=== PATIENT | male | born 1950 | race Caucasian/White ===

== ENCOUNTER 2016-07-25 17:34 | Emergency (ER) | payer MEDICARE, OTHER ==
[2016-07-25] MEDS ORDERED: Morphine INJ* 4 MG/ML 1 ML SYRINGE IV ONE (18:16)
[2016-07-25] MEDS ORDERED: Metoclopramide IV* 5 MG/ML 2 ML VIAL IV SLOW PU ONE (18:17)
[2016-07-25] MEDS: NS 0.9% 1000 ML* 2,000 ML IV ONE ×2 (18:26→20:51)
[2016-07-25 18:42] LABS: Hematocrit 40 % (42-52); Hemoglobin 13.1 g/dl (14.0-18.0); Mean Corpuscular HGB Conc 33 g/dl (31-36); Mean Corpuscular Hemoglobin 28 pg (27-31); Mean Corpuscular Volume 86 fL (80-94); Mean Platelet Volume 8 um3 (7.4-10.4); Red Blood Count 4.62 10^6/ul (4.0-5.4); Red Cell Distribution Width 16 % (10.5-15); White Blood Count 4.8 10^3/ul (3.5-10.8)
[2016-07-25 19:08] LABS: Albumin 4.3 g/dL (3.2-5.2); BUN/Creatinine Ratio 27.2 (8-20); C Reactive Protein 3.03 mg/L (< 5.00); Calcium 9.1 mg/dL (8.6-10.3); EGFR African American 122.2 (>60); EGFR Non-African American 95.1 (>60); Globulin 2.9 g/dL (2-4); Magnesium 1.7 mg/dL (1.9-2.7); Potassium 3.8 mmol/L (3.5-5.0); Total Bilirubin 0.5 mg/dL (0.2-1.0); Total Protein 7.2 g/dL (6.4-8.9)
[2016-07-25] MEDS ORDERED: Iodixanol* (CONTRAST) 320 MG/ML 100 ML SDV IV ONE (19:13)
--- NOTE | 2016-07-25 20:42 | RAD ---
INDICATION: Left-sided abdominal pain, vomiting and diarrhea. COMPARISON: Comparison is made with a prior CT of the abdomen and pelvis from October 13, 2015. TECHNIQUE: A CT scan of the abdomen and pelvis was performed with intravenous and oral contrast following intravenous injection of 114 ml of Visipaque 320 nonionic contrast. Contiguous axial sections were obtained from the lung bases through the symphysis pubis. Images were reconstructed in the coronal and sagittal planes. FINDINGS: There is a small infiltrate in the left lower lobe. No pleural effusion is present. The liver and spleen are normal in size without significant focal abnormality. The patient is status post cholecystectomy. The pancreas appears to be within normal limits. There is a 1 cm right adrenal nodule which is unchanged from studies dating back to June 04, 2014 and most consistent with a benign nodule. The kidneys are normal in size. No significant focal renal abnormality or hydronephrosis is seen. The aorta is normal in caliber with moderate calcific plaque present. No significant enlarged retroperitoneal lymph nodes are seen. The stomach, small and large bowel appear nondistended. There is mild thickening of the wall of the distal esophagus. The appendix is within normal limits. There is no evidence for diverticulitis or colitis. No free intraperitoneal air or fluid is seen. The patient is status post laminectomy at the T9 and T10 levels. IMPRESSION: 1. SMALL LEFT LOWER LOBE INFILTRATE. 2. NO EVIDENCE FOR ACUTE FINDING IN THE ABDOMEN OR CAUSE FOR THE PATIENT'S ABDOMINAL PAIN IS SEEN. 3. MILD THICKENING OF THE WALL OF THE DISTAL ESOPHAGUS SUGGESTIVE OF REFLUX DISEASE AND INFLAMMATION ALTHOUGH NONSPECIFIC. 4. STATUS POST CHOLECYSTECTOMY.
[2016-07-25] MEDS ORDERED: Magnesium Sulfate 2 GM IV* 2 GM/50 ML BAG IVPB ONE (21:05)
--- NOTE | 2016-07-25 21:27 | RAD ---
INDICATION: Cough. COMPARISON: Comparison is made with a prior chest x-ray study from May 22, 2013. TECHNIQUE: A portable view of the chest was obtained. FINDINGS: Cardiac and mediastinal contours appear to be within normal limits. The lungs are clear. No pleural effusion is seen. The infiltrate seen on the prior CT study is not visualized on this chest x-ray exam. IMPRESSION: THE SMALL INFILTRATE SEEN ON THE PRIOR CT STUDY IS NOT VISUALIZED ON THE CHEST X-RAY EXAM.
[2016-07-25 21:57] VITALS: BP 152/70
[2016-07-25] MEDS ORDERED: Azithromycin TAB* 250 MG PO ONE (22:15)
[2016-07-25] MEDS ORDERED: Metoclopramide TAB* 10 MG PO ONE (22:15)
--- NOTE | 2016-07-25 22:19 | ED ---
Orlin Abebe Billy, scribed for Yakov Cabral MD on 07/25/16 at 1812 . Complex/Multi-Sys Presentation - HPI Summary HPI Summary: Patient is a 65 year-old male coming to [facility] from PCP for evaluation of 5 days of N/V/D. Patient saw his PCP yesterday and was prescribed Zofran, to which he had an adverse reaction. He says that after taking the Zofran, he felt like he "couldn't sleep," like he "was running a marathon all night long." Patient also reports fatigue and general malaise. He has a history of T2DM and feels hypoglycemic at this time. Patient denies any urinary symptoms. He is concerned about possible dehydration as well. Positive LLQ pain which has been chronic for weeks. Patient is on chronic pain management (oral morphine and fentanyl patches). - History Of Current Complaint Chief Complaint: EDGeneral Time Seen by Provider: 07/25/16 18:02 Hx Obtained From: Patient Onset/Duration: Gradual Onset, Lasting Days, Still Present Timing: Constant Severity Currently: Moderate Severity Initially: Moderate Location: Pain At: - LLQ Aggravating Factor(s): none Alleviating Factor(s): none Associated Signs And Symptoms: Positive: Nausea, Vomiting, Diarrhea, Other - fatigue, general malaise. Negative: Dysuria, Fever - Allergies/Home Medications Allergies/Adverse Reactions: Allergies Allergy/AdvReac Type Severity Reaction Status Date / Time Procaine [From Novocain] Allergy Intermediate Rash And Verified 06/18/16 10:31 Itching Cyclobenzaprine Allergy Swelling Verified 06/18/16 10:31 Of Face,Lips,& Throat Ciprofloxacin [From Cipro] AdvReac Intermediate Rash And Verified 06/18/16 10:31 Itching PMH/Surg Hx/FS Hx/Imm Hx Endocrine/Hematology History: Reports: Hx Diabetes Denies: Hx Systemic Lupus Erythematosus Cardiovascular History: Reports: Hx Hypercholesterolemia, Hx Hypotension, Hx Hypertension Denies: Hx Congestive Heart Failure, Hx Pacemaker/ICD, Other Cardiovascular Problems/Disorders Respiratory History: Reports: Hx Asthma, Hx Chronic Obstructive Pulmonary Disease (COPD), Hx Sleep Apnea, Other Respiratory Problems/Disorders - COPD, SOB GI History: Reports: Hx Gastroesophageal Reflux Disease Denies: Other GI Disorders History: Reports: Other Problems/Disorders - Asencio catheter in place Denies: Hx Dialysis, Hx Renal Disease Musculoskeletal History: Reports: Hx Arthritis, Hx Back Problems, Hx Orthopedic Injury - Torn Right Rotator Cuff June 2014 Denies: Hx Rheumatoid Arthritis Sensory History: Reports: Hx Cataracts - ASHLY, Hx Contacts or Glasses - GLASSES Denies: Hx Hearing Aid Opthamlomology History: Reports: Hx Cataracts - ASHLY, Hx Contacts or Glasses - GLASSES Neurological History: Denies: Other Neuro Impairments/Disorders Psychiatric History: Reports: Hx Anxiety Denies: Hx Panic Disorder - Cancer History Cancer Type, Location and Year: bladder Hx Chemotherapy: No - Surgical History Surgery Procedure, Year, and Place: Cataract Surgery at [facility] [place], CHOLECYSTECTOMY 12/17/15. EARLY CSP FUSION. CSP LAMINECTOMYS. THORACIC OUTLET SURGERY [facility]. TENS UNIT X2. MORPHINE PUMPS IMPLANTED AND REMOVED. Left Knee replacement 01/2016. Shoulder surgery 06/2015. Total tooth extraction 2014 and dentures Hx Anesthesia Reactions: No - Immunization History Date of Tetanus Vaccine: 04/23/06 Infectious Disease History: No Infectious Disease History: Denies: Traveled Outside the [place] in Last 30 Days - Family History Known Family History: Positive: Diabetes - Social History Alcohol Use: None Substance Use Type: Reports: Cocaine, Marijuana Substance Use Comment - Amount & Last Used: Previous hx. Went to rehab [address] [place] [address] Smoking Status (MU): Former Smoker Type: Cigarettes Amount Used/How Often: PACK A DAY Have You Smoked in the Last Year: No Review of Systems Positive: Fatigue, Other - general malaise. Negative: Fever, Chills Positive: Vomiting, Diarrhea, Nausea Negative: dysuria, frequency, urgency All Other Systems Reviewed And Are Negative: Yes Physical Exam Triage Information Reviewed: Yes Vital Signs On Initial Exam: Initial Vitals Temp Pulse Resp BP Pulse Ox 95.5 F 59 20 125/88 100 07/25/16 17:36 07/25/16 17:36 07/25/16 17:36 07/25/16 17:36 07/25/16 17:36 Vital Signs Reviewed: Yes Appearance: Positive: No Pain Distress, Ill-Appearing - mild Skin: Positive: Warm, Dry, Pale Eyes: Positive: EOMI, LAURA ENT: Positive: Other - oral mucosa dry Neck: Positive: Supple, Nontender Cardiovascular: Positive: Bradycardia Abdomen Description: Positive: Soft, Other: - Left-sided abdominal tenderness Bowel Sounds: Positive: Hypoactive Musculoskeletal: Positive: Normal, Strength/ROM Intact Neurological: Positive: Normal, Sensory/Motor Intact, Alert, Oriented to Person Place, Time Psychiatric: Positive: Affect/Mood Appropriate - Marylin Coma Scale Coma Scale Total: 15 Diagnostics - Vital Signs Vital Signs Temp Pulse Resp BP Pulse Ox 07/25/16 17:49 52 10 99 07/25/16 17:36 95.5 F 59 20 125/88 100 - Laboratory Lab Results: Lab Results 07/25/16 07/25/16 07/25/16 Range/Units 18:30 18:30 18:30 WBC 4.8 (3.5-10.8) 10^3/ul RBC 4.62 (4.0-5.4) 10^6/ul Hgb 13.1 L (14.0-18.0) g/dl Hct 40 L (42-52) % MCV 86 (80-94) fL MCH 28 (27-31) pg MCHC 33 (31-36) g/dl RDW 16 H (10.5-15) % Plt Count 256 (150-450) 10^3/ul MPV 8 (7.4-10.4) um3 Neut % (Auto) 54.7 (38-83) % Lymph % (Auto) 26.7 (25-47) % Hoke % (Auto) 10.1 H (1-9) % Eos % (Auto) 3.4 (0-6) % Baso % (Auto) 5.1 H (0-2) % Absolute Neuts (auto) 2.6 (1.5-7.7) 10^3/ul Absolute Lymphs (auto) 1.3 (1.0-4.8) 10^3/ul Absolute Monos (auto) 0.5 (0-0.8) 10^3/ul Absolute Eos (auto) 0.2 (0-0.6) 10^3/ul Absolute Basos (auto) 0.2 (0-0.2) 10^3/ul Absolute Nucleated RBC 0 10^3/ul Nucleated RBC % 0 INR (Anticoag Therapy) 1.04 (0.89-1.11) Sodium 133 (133-145) mmol/L Potassium 3.8 (3.5-5.0) mmol/L Chloride 99 L (101-111) mmol/L Carbon Dioxide 26 (22-32) mmol/L Anion Gap 8 (2-11) mmol/L BUN 22 (6-24) mg/dL Creatinine 0.81 (0.67-1.17) mg/dL Est GFR ( Amer) 122.2 (>60) Est GFR (Non-Af Amer) 95.1 (>60) BUN/Creatinine Ratio 27.2 H (8-20) Glucose 113 H (70-100) mg/dL Lactic Acid (0.5-2.0) mmol/L Calcium 9.1 (8.6-10.3) mg/dL Magnesium 1.7 L (1.9-2.7) mg/dL Total Bilirubin 0.50 (0.2-1.0) mg/dL AST 20 (13-39) U/L ALT 13 (7-52) U/L Alkaline Phosphatase 86 (34-104) U/L C-Reactive Protein 3.03 (< 5.00) mg/L Total Protein 7.2 (6.4-8.9) g/dL Albumin 4.3 (3.2-5.2) g/dL Globulin 2.9 (2-4) g/dL Albumin/Globulin Ratio 1.5 (1-3) Lipase 29 (11.0-82.0) U/L 07/25/16 Range/Units 18:30 WBC (3.5-10.8) 10^3/ul RBC (4.0-5.4) 10^6/ul Hgb (14.0-18.0) g/dl Hct (42-52) % MCV (80-94) fL MCH (27-31) pg MCHC (31-36) g/dl RDW (10.5-15) % Plt Count (150-450) 10^3/ul MPV (7.4-10.4) um3 Neut % (Auto) (38-83) % Lymph % (Auto) (25-47) % Hoke % (Auto) (1-9) % Eos % (Auto) (0-6) % Baso % (Auto) (0-2) % Absolute Neuts (auto) (1.5-7.7) 10^3/ul Absolute Lymphs (auto) (1.0-4.8) 10^3/ul Absolute Monos (auto) (0-0.8) 10^3/ul Absolute Eos (auto) (0-0.6) 10^3/ul Absolute Basos (auto) (0-0.2) 10^3/ul Absolute Nucleated RBC 10^3/ul Nucleated RBC % INR (Anticoag Therapy) (0.89-1.11) Sodium (133-145) mmol/L Potassium (3.5-5.0) mmol/L Chloride (101-111) mmol/L Carbon Dioxide (22-32) mmol/L Anion Gap (2-11) mmol/L BUN (6-24) mg/dL Creatinine (0.67-1.17) mg/dL Est GFR ( Amer) (>60) Est GFR (Non-Af Amer) (>60) BUN/Creatinine Ratio (8-20) Glucose (70-100) mg/dL Lactic Acid 0.9 (0.5-2.0) mmol/L Calcium (8.6-10.3) mg/dL Magnesium (1.9-2.7) mg/dL Total Bilirubin (0.2-1.0) mg/dL AST (13-39) U/L ALT (7-52) U/L Alkaline Phosphatase (34-104) U/L C-Reactive Protein (< 5.00) mg/L Total Protein (6.4-8.9) g/dL Albumin (3.2-5.2) g/dL Globulin (2-4) g/dL Albumin/Globulin Ratio (1-3) Lipase (11.0-82.0) U/L Result Diagrams: 07/25/16 18:30 07/25/16 18:30 Lab Statement: Any lab studies that have been ordered have been reviewed, and results considered in the medical decision making process. - Radiology CXR Radiology Interpretation Completed By: Radiologist - THE SMALL INFILTRATE SEEN ON THE PRIOR CT STUDY IS NOT VISUALIZED ON THE CHEST X-RAY EXAM. - CT abd/pel w CT Interpretation Completed By: Radiologist - 1. SMALL LEFT LOWER LOBE INFILTRATE. 2. NO EVIDENCE FOR ACUTE FINDING IN THE ABDOMEN OR CAUSE FOR THE PATIENT'S ABDOMINAL PAIN IS SEEN. 3. MILD THICKENING OF THE WALL OF THE DISTAL ESOPHAGUS SUGGESTIVE OF REFLUX DISEASE AND INFLAMMATION ALTHOUGH NONSPECIFIC. 4. STATUS POST CHOLECYSTECTOMY. Re-Evaluation - Re-Evaluation First Eval Re-Evaluation Time: 20:59 Change: Improved Comment: Labs and imaging discussed. He is feeling better. When asked about the left lung infiltrate visualised on CT, patient admits that he has had a cough lately. CXR has been ordered. Second Eval Re-Evaluation Time: 22:14 Comment: CXR reviewed. Complex Multi-Symp Course/Dx Course Of Treatment: NO CRITICAL CARE TIME Assessment/Plan: IMPROVED IN ED. WISHES TO GO HOME. DISCHARGE HOME STABLE. - Diagnoses Provider Diagnoses: Vomiting and diarrhea, Dehydration, Pneumonia Discharge - Discharge Plan Condition: Stable Disposition: HOME Prescriptions: Azithromycin TAB* [Zithromax TAB (Z-BIB) 250 mg #6 tabs] 250 mg PO DAILY #4 tab Metoclopramide TAB* [Reglan TAB*] 10 mg PO Q6H PRN #10 tab PRN Reason: Nausea Patient Education Materials: Dehydration (ED), Acute Nausea and Vomiting (ED), Pneumonia (ED) Referrals: Deepthi Jacobs MD [Primary Care Provider] - Additional Instructions: FOLLOW UP WITH YOUR DOCTOR. RETURN TO THE EMERGENCY DEPARTMENT FOR ANY WORSENING OF YOUR CONDITION OR QUESTIONS OR CONCERNS. The documentation as recorded by the Orlin juan Billy accurately reflects the service I personally performed and the decisions made by me, Yakov Cabral MD.
== END 2016-07-25 22:35 | disposition home or self-care (01) ==
LOC: ED 17:34
DX: E86.0 Dehydration (principal); J18.9 Pneumonia, unspecified organism; R10.32 Left lower quadrant pain; R11.2 Nausea with vomiting, unspecified; R19.7 Diarrhea, unspecified; R53.83 Other fatigue
CPT/HCPCS: 36415; 71010; 74177; 80053; 83605; 83690; 83735; 85025; 85610; 86140; 96374; 96375; 99284; A9270-GY; J2270; Q9967

== ENCOUNTER 2017-01-28 17:34 | Emergency (ER) | payer MEDICARE, OTHER ==
[2017-01-28 17:46] VITALS: BP 146/63
--- NOTE | 2017-01-28 18:01 | UC ---
Upper Extremity HPI - HPI Summary HPI Summary: left wrist pain after stumbling and falling in to a cabinet--- - History of Current Complaint Chief Complaint: UCUpperExtremity Stated Complaint: WRIST INJURY Time Seen by Provider: 01/28/17 17:52 Hx Obtained From: Patient ?: No Onset/Duration: Sudden Onset, Other - happened 2 days Severity Initially: Moderate Severity Currently: Moderate Pain Intensity: 5 Pain Scale Used: 0-10 Numeric Location Of Pain: Is Discrete @ Character: Aching, Burning Aggravating Factor(s): Movement Alleviating Factor(s): Nothing - Allergies/Home Medications Allergies/Adverse Reactions: Allergies Allergy/AdvReac Type Severity Reaction Status Date / Time Ciprofloxacin [From Cipro] Allergy Intermediate Rash And Verified 01/28/17 17:47 Itching Procaine [From Novocain] Allergy Intermediate Rash And Verified 01/28/17 17:47 Itching Cyclobenzaprine Allergy Swelling Verified 01/28/17 17:47 Of Face,Lips,& Throat Home Medications: Home Medications Acetaminophen [Acetaminophen Extra Stren] 1,500 mg PO PRN 01/28/17 [History] PMH/Surg Hx/FS Hx/Imm Hx Previously Healthy: No Endocrine History: Diabetes, Dyslipidemia Cardiovascular History: Hypertension Respiratory History: Asthma GI/ History: Gastroesophageal Reflux Psychological History: Depression - Surgical History Surgical History: Yes Surgery Procedure, Year, and Place: [place]ar[place] [facility] [place]. EARLY S CSP FUSION. CSP LAMINECTOMYS. THORACIC OUTLET SURGERY [facility]. TENS UNIT X2. MORPHINE PUMPS IMPLANTED AND REMOVED. Left Knee replacement 01/2016. Shoulder surgery 06/2015. Total tooth extraction 2014 and dentures - Family History Known Family History: Positive: Diabetes - Social History Occupation: Retired - Volunteers at [employer] Alcohol Use: None Substance Use Type: None, Prescribed Substance Use Comment - Amount & Last Used: Previous hx. Went to rehab [facility], [place], [place] Smoking Status (MU): Former Smoker Type: Cigarettes Amount Used/How Often: PACK A DAY Have You Smoked in the Last Year: No When Did the Patient Quit Smoking/Using Tobacco: 2009 Review of Systems Constitutional: Negative Skin: Negative Eyes: Negative ENT: Negative Respiratory: Negative Cardiovascular: Negative Gastrointestinal: Negative Genitourinary: Negative Motor: Negative Neurovascular: Negative Musculoskeletal: Arthralgia - left wrist Neurological: Negative Psychological: Negative Is Patient Immunocompromised?: No All Other Systems Reviewed And Are Negative: Yes Physical Exam Triage Information Reviewed: Yes Appearance: Well-Appearing, No Pain Distress, Well-Nourished Vital Signs: Initial Vital Signs Temp 98.1 F 01/28/17 17:38 Pulse 76 01/28/17 17:38 Resp 16 01/28/17 17:38 BP 146/63 01/28/17 17:38 Pulse Ox 100 01/28/17 17:38 Vital Signs Reviewed: Yes Eye Exam: Normal Eyes: Positive: Conjunctiva Clear ENT Exam: Normal ENT: Positive: Normal ENT inspection, Hearing grossly normal. Negative: Nasal congestion, Nasal drainage, Trismus, Muffled/hoarse voice Neck exam: Normal Neck: Positive: Supple, Nontender Respiratory Exam: Normal Respiratory: Positive: Chest non-tender, No respiratory distress, No accessory muscle use Cardiovascular Exam: Normal Cardiovascular: Positive: RRR, Pulses Normal, Brisk Capillary Refill Musculoskeletal Exam: Normal Musculoskeletal: Positive: Strength Intact, ROM Intact Neurological Exam: Normal Neurological: Positive: Alert, Muscle Tone Normal Skin Exam: Normal Skin: Positive: rashes Diagnostics - Radiology No standard instances Xray Interpretation: No Acute Changes Radiology Interpretation Completed By: ED Physician, Radiologist Upper Extremity Course/Dx - Course Course Of Treatment: erika, splint sling ibuprofen, follow with ortho prn,rice - Differential Dx/Diagnosis Differential Diagnosis/HQI/PQRI: Contusion, Fracture (Open), Strain, Sprain Provider Diagnoses: left wrist contusion, sprain Discharge - Discharge Plan Condition: Stable Disposition: HOME Patient Education Materials: Contusion in Adults (ED), RICE Therapy (ED), Wrist Sprain (ED) Referrals: Michael Evans MD [Medical Doctor] - 4 Days No Primary Care Phys,NOPCP [Primary Care Provider] -
--- NOTE | 2017-01-28 19:08 | RAD ---
INDICATION: Left wrist pain 2 days after a fall COMPARISON: None. TECHNIQUE: 4 views left wrist. REPORT: The visualized bones are properly aligned and well corticated. Degenerative changes include sclerotic bony remodeling with marginal osteophyte formation at the left thumb metacarpal trapezium joint. There is a mild degree of palmar and radial subluxation of the metacarpal relative to the trapezium.There is no fracture, dislocation or other focal osseous abnormality. IMPRESSION: Degenerative changes as described above without radiographically apparent fracture or dislocation. If the patient's symptoms persist, follow-up imaging is recommended.
== END 2017-01-28 19:18 | disposition home or self-care (01) ==
LOC: UCEAST 17:34
DX: S63.502A Unspecified sprain of left wrist, initial encounter (principal); E11.9 Type 2 diabetes mellitus without complications; E78.5 Hyperlipidemia, unspecified; I10 Essential (primary) hypertension; K21.9 Gastro-esophageal reflux disease without esophagitis; J45.909 Unspecified asthma, uncomplicated; Z87.891 Personal history of nicotine dependence; W19.XXXA Unspecified fall, initial encounter; Y92.9 Unspecified place or not applicable
CPT/HCPCS: 99211; G0463

== ENCOUNTER 2017-10-19 13:32 | Emergency (ER) | payer MEDICARE, OTHER ==
[2017-10-19 14:32] VITALS: BP 167/84
== END 2017-10-19 16:21 | disposition left against medical advice (07) ==
LOC: ED 13:32
DX: R51 Headache (principal); R19.7 Diarrhea, unspecified; Z53.21 Procedure and treatment not carried out due to patient leaving prior to being seen by health care provider

== ENCOUNTER 2017-10-20 10:51 | Observation (INO) | payer MEDICARE ==
[2017-10-20 12:07] LABS: ABS Basophils 0.1 10^3/ul (0-0.2); ABS Eosinophils 0.1 10^3/ul (0-0.6); ABS Lymphocytes 0.6 10^3/ul (1.0-4.8); ABS Monocytes 0.7 10^3/ul (0-0.8); ABS Neutrophils 8.8 10^3/ul (1.5-7.7); ABS Nucleated RBC 0 10^3/ul; Eosinophil % 0.7 % (0-6); Hematocrit 41 % (42-52); Hemoglobin 14.2 g/dl (14.0-18.0); Lymphocyte % 5.9 % (25-47); Mean Corpuscular HGB Conc 35 g/dl (31-36); Mean Corpuscular Hemoglobin 30 pg (27-31); Mean Corpuscular Volume 86 fL (80-94); Mean Platelet Volume 7.3 um3 (7.4-10.4); Nucleated Red Blood Cells % 0; Platelet Count 193 10^3/ul (150-450); Red Blood Count 4.71 10^6/ul (4.00-5.40); Red Cell Distribution Width 14 % (10.5-15); White Blood Count 10.2 10^3/ul (3.5-10.8)
[2017-10-20 12:28] LABS: EGFR Non-African American 95.8 (>60)
[2017-10-20] MEDS ORDERED: Ondansetron ODT TAB* 4 MG SL ONE (12:30)
[2017-10-20] MEDS ORDERED: Iodixanol* (CONTRAST) 320 MG/ML 100 ML SDV IV ONE (12:43)
[2017-10-20] MEDS: NS 0.9% 1000 ML* 2,000 ML IV ONE (13:04)
--- NOTE | 2017-10-20 14:28 | RAD ---
INDICATION: Lower abdominal pain. Diarrhea. Vomiting. COMPARISON: CT October 22, 2016 TECHNIQUE: Axial source images were obtained from the hemidiaphragms to the symphysis pubis following administration of oral and intravenous contrast. 112 mL Visipaque 320 was utilized. Coronal and sagittal reconstructed images were acquired. Lung bases: There is left basilar infiltrative change. The remaining lung mc are clear. Liver: The liver is enlarged with findings of hepatic steatosis. There are no masses. There is no ductal dilatation. Gallbladder: Cholecystectomy. Spleen: There is minor splenomegaly. There is no discrete mass. Pancreas: There is no focal pancreatic mass or ductal dilatation. Adrenal glands: There is a enhancing, 1.2 cm nodule in the right adrenal gland stable and described on multiple prior examinations. This is likely an adenoma. There is suspected mild adrenal hyperplasia as well, unchanged. Kidneys: The kidneys are normal in size and position. There are prompt nephrograms and there is prompt excretion bilaterally. There are no renal parenchymal masses. There is no evidence of nephrolithiasis. Adenopathy: There is no evidence of adenopathy by size criteria. Fluid collections: There are no free or localized fluid collections. Vessels:There are atherosclerotic changes involving the aorta and iliac vessels. There is no focal aneurysm. The IVC appears normal. GI tract: There is mild gaseous distention but there is no obstruction. There are scant diverticula. There is no CT evidence of acute diverticulitis. There are nondilated fluid-filled loops of small bowel. There is air and stool within a normal caliber colon. Pelvic organs: The prostate and seminal vesicles appear normal Bladder: The bladder appears mildly trabeculated. Abdominal and pelvic soft tissues: The extraperitoneal abdominal and pelvic soft tissues appear normal.. Osseous structures: There are no acute osseous findings. There is degenerative change at L5-S1 Other: None IMPRESSION: 1. Left basilar infiltrate consistent with pneumonitis. Suggest follow-up plain radiographs. 2. Mild hepatosplenomegaly. 3. Stable right adrenal lesion, likely an adenoma. 4. Mild gaseous distention but no findings of obstruction or enteric inflammatory change. 5. Mild trabeculation of bladder. 6. Cholecystectomy
--- NOTE | 2017-10-20 16:04 | RAD ---
INDICATION: Vomiting. COPD. Generalized illness. COMPARISON: October 20, 2017 CT abdomen TECHNIQUE: Dual energy PA and routine lateral views of the chest were obtained. REPORT: Airspace consolidation at the LEFT lung base based on correlation with CT abdomen of the same date. Diffuse mild prominence of the interstitial markings. Negative for pleural effusions. Negative for pneumothorax. The heart, pulmonary vasculature, and mediastinal contours are unremarkable. Negative for free air beneath the diaphragm. LEFT supraclavicular surgical clips noted. IMPRESSION: LEFT basilar pneumonia.
[2017-10-20] MEDS ORDERED: Dextrose 50% Syringe 50 ML* 25 GM/50 ML SYRINGE IV PUSH PRN (17:38)
[2017-10-20] MEDS ORDERED: Morphine ORAL.SOLN 10 mg* 2 MG/ML UDC 5 ml PO PRN (17:39)
[2017-10-20] MEDS ORDERED: Nitroglycerin TAB 0.4 MG* 0.4 MG TAB SL PRN (17:39)
[2017-10-20 17:40] LABS: Urine Appearance Clear; Urine Blood Negative (Negative); Urine Color Yellow; Urine Ketones Negative (Negative); Urine Protein Negative (Negative); Urine Specific Gravity 1.046 (1.010-1.030); Urine Urobilinogen Negative (Negative)
--- NOTE | 2017-10-20 17:49 | ADMNOTE ---
Subjective Date of Service: 10/20/17 Interval History: ADMISSION HISTORY AND PHYSICAL EXAM: Allergies Allergy/AdvReac Type Severity Reaction Status Date / Time ciprofloxacin [From Cipro] Allergy rash, Verified 10/20/17 12:08 itching cyclobenzaprine Allergy Swelling Verified 10/20/17 12:08 Of Face,Lips,& Throat procaine [From Novocain] Allergy rash, Verified 10/20/17 12:08 itching Home Medications Medication Instructions Recorded Confirmed Type Aspirin TAB* [Aspirin 325 MG TAB*] 325 mg PO DAILY 10/20/17 10/20/17 History Atorvastatin* [Lipitor*] 10 mg PO DAILY 10/20/17 10/20/17 History Biotin 1,000 mcg PO QPM 10/20/17 10/20/17 History Cholecalciferol TAB* [Vitamin D 1,000 unit PO QPM 10/20/17 10/20/17 History TAB*] Docusate CAP* [Colace Cap*] 100 mg PO BID 10/20/17 10/20/17 History Ferrous Sulfate TAB* 325 mg PO DAILY 10/20/17 10/20/17 History Hydrochlorothiazide TAB* 25 mg PO DAILY 10/20/17 10/20/17 History [Hydrodiuril TAB*] Insulin ASPART (NF) [Novolog (NF)] 0 units SUBCUT DAILY 10/20/17 10/20/17 History Insulin GLARGINE(*) [Lantus(*)] 38 units SUBCUT QPM 10/20/17 10/20/17 History Lisinopril TAB* [Prinivil TAB*] 5 mg PO DAILY 10/20/17 10/20/17 History Montelukast Sodium TAB* [Singulair 10 mg PO DAILY 10/20/17 10/20/17 History TAB*] Morphine TAB (NF) 1 - 2 tab PO Q4H PRN 10/20/17 10/20/17 History Nitroglycerin TAB 0.4 MG* 0.4 mg SL Q5M PRN 10/20/17 10/20/17 History [place]-3 Fatty Acids (Nf) [Fish Oil 1,000 mg PO BID 10/20/17 10/20/17 History (NF)] Omeprazole CAP* [Prilosec CAP* 20 20 mg PO BID 10/20/17 10/20/17 History MG] Potassium Chlor TAB* [Klor Con ER 10 meq PO BID 10/20/17 10/20/17 History TAB*] Prazosin CAP* [Minipress CAP*] 10 mg PO QPM 10/20/17 10/20/17 History Sertraline* [Zoloft*] 200 mg PO BEDTIME 10/20/17 10/20/17 History Tamsulosin CAP* [Flomax CAP*] 0.4 mg PO DAILY 10/20/17 10/20/17 History Temazepam CAP* [Restoril CAP*] 30 mg PO BEDTIME 10/20/17 10/20/17 History Theophylline TAB* [Dheeraj Dur*] 400 mg PO BID 10/20/17 10/20/17 History fentaNYL PATCH 12 MCG/HR * 12 mcg TRANSDERM Q72H 10/20/17 10/20/17 History [Duragesic Patch 12 Mcg/Hr *] fentaNYL PATCH 25 MCG/HR* 25 mcg TRANSDERM Q72H 10/20/17 10/20/17 History [Duragesic PATCH 25 Mcg/Hr*] metFORMIN* [Glucophage 1000 MG TAB 1,000 mg PO BID 10/20/17 10/20/17 History *] traZODone TAB* [Desyrel TAB*] 50 mg PO BEDTIME 10/20/17 10/20/17 History HPI: The patient states he has been ill with vomiting, abdominal pain, diarrhea, cough for 2-3 weeks. It was worse today. He was also depressed but did not seem to want to talk to me about that. Family History: Findings - Patient is adopted and doesn't know his family hx Social History: Findings - Quit smoking 10 yrs ago. No alcohol abuse. Daughter Kanwal is his SDM. Lives alone, very close to his daughter. Past Medical History: Findings - TURP 2010. BL cataract sx. Chronic neck pain following injury. Review of Systems - Measurements Intake and Output: Intake and Output Last 24 Hours 10/18/17 10/19/17 10/20/17 10/21/17 06:59 06:59 06:59 06:59 Intake Total 1999 Balance 1999 Weight 199 lb Intake: IV Fluids 1999 - Review of Systems Constitutional Symptoms: Negative: Weight Gain, Weight Loss, Weakness, Fatigue, Fever, Night Sweats, Unexplained Falls, Other Dermatology: Positive: Normal HEENT: Positive: Normal Eyes: Positive: Normal Thyroid: Positive: Normal Pulmonary: Positive: Cough Cardiology: Positive: Normal Gastroenterology: Positive: Abdominal Pain, Vomiting, Diarrhea Genital - Urinary: Positive: Normal Musculoskeletal: Positive: Other - chronic neck pain Endocrinology: Positive: Normal Hematologic/Lymphatic: Negative: Anemia, Easy Brusing, Hx Leukemia, Hx Lymphoma, Use of Anticoagulant, Use of Antiplatelet Drugs, Other Neurology: Positive: Normal Psychiatry: Positive: Depression Allergic/Immunologic: Negative: Hx Anaphylaxis, Hx Angioedema, Hx Environmental, Hx Seasonal, Athsma, Hx HIV, Immunocompromise, Swollen Glands LymphNodes, Other Objective Active Medications: Enoxaparin Sodium (Lovenox(*)) 40 mg SUBCUT Q24H IRMA Vital Signs - 8 hr 10/20/17 10/20/17 10/20/17 11:24 12:02 12:03 Temperature 98.7 F Pulse Rate 86 67 63 Respiratory 17 Rate Blood Pressure 150/68 139/68 (mmHg) O2 Sat by Pulse 97 97 96 Oximetry 10/20/17 10/20/17 10/20/17 12:32 13:00 13:03 Temperature Pulse Rate 60 65 58 Respiratory Rate Blood Pressure 117/68 125/71 (mmHg) O2 Sat by Pulse 97 97 98 Oximetry 10/20/17 10/20/17 10/20/17 13:32 14:03 14:32 Temperature Pulse Rate 56 64 60 Respiratory Rate Blood Pressure 141/74 164/74 157/79 (mmHg) O2 Sat by Pulse 98 98 96 Oximetry 10/20/17 10/20/17 10/20/17 15:00 15:02 15:42 Temperature Pulse Rate 60 60 58 Respiratory Rate Blood Pressure 141/77 171/81 (mmHg) O2 Sat by Pulse 95 94 98 Oximetry 10/20/17 10/20/17 10/20/17 16:00 16:03 16:33 Temperature Pulse Rate 66 63 60 Respiratory Rate Blood Pressure 159/75 163/79 (mmHg) O2 Sat by Pulse 98 97 97 Oximetry 10/20/17 10/20/17 17:00 17:02 Temperature Pulse Rate 58 53 Respiratory Rate Blood Pressure 163/80 (mmHg) O2 Sat by Pulse 99 98 Oximetry Oxygen Devices in Use Now: None Appearance: Alert, supine on ED stretcher. In fair spirits. Looks a little uncomfortable. Eyes: No Scleral Icterus Neck: NL Appearance and Movements; NL JVP, No Thyroid Enlargement, Masses Respiratory: Symmetrical Chest Expansion and Respiratory Effort, Clear to Percussion, - - Rales L base Cardiovascular: NL Sounds; No Murmurs; No JVD, RRR, No Edema, - Abdominal: No Hepatosplenomegaly, - - Soft, tender to mod palpation, nl BS Extremities: No Edema, No Clubbing, Cyanosis, - Skin: No Rash or Ulcers, No Nodules or Sclerosis, - Neurological: Alert and Oriented x 3, NL Sensation Result Diagrams: 10/20/17 11:51 10/20/17 11:51 Assess/Plan/Problems-Billing Assessment: - Patient Problems (1) Pneumonia Current Visit: Yes Status: Acute Code(s): J18.9 - PNEUMONIA, UNSPECIFIED ORGANISM SNOMED Code(s): 996994455 Comment: Ceftriaxne and azithromycin ordered. (2) Chronic pain Current Visit: Yes Status: Acute Code(s): G89.29 - OTHER CHRONIC PAIN SNOMED Code(s): 10817805 Comment: Home doses of MS and fentanyl patch ordered. (3) Diabetes Current Visit: Yes Status: Acute Code(s): E11.9 - TYPE 2 DIABETES MELLITUS WITHOUT COMPLICATIONS SNOMED Code(s): 73414432 Comment: Hold metformin. Home dose Lantus. Lispro by SS. (4) HTN (hypertension) Current Visit: Yes Status: Acute Code(s): I10 - ESSENTIAL (PRIMARY) HYPERTENSION SNOMED Code(s): 20246214 Comment: Home dose lisinopril, prazosin, thiazide. (5) Depression Current Visit: Yes Status: Acute Code(s): F32.9 - MAJOR DEPRESSIVE DISORDER , SINGLE EPISODE, UNSPECIFIED SNOMED Code(s): 06474583
[2017-10-20] MEDS ORDERED: Azithromycin IV(*) 500 MG in NS 0.9% 250 ML* 250 ML IVPB SCH (18:00)
[2017-10-20] MEDS ORDERED: Cholecalciferol TAB* 1000 UNITS PO SCH (18:00)
[2017-10-20] MEDS ORDERED: fentaNYL PATCH 25 MCG/HR TRANSDERM SCH (18:00)
[2017-10-20] MEDS ORDERED: Prazosin CAP* 1 MG PO SCH (18:00)
[2017-10-20] MEDS ORDERED: Insulin GLARGINE(*) 1 UNITS UNIT SUBCUT SCH (18:00)
[2017-10-20] MEDS ORDERED: fentaNYL PATCH 12 MCG/HR TRANSDERM SCH (18:00)
[2017-10-20] MEDS ORDERED: Enoxaparin(*) 40 MG/0.4 ML SYR SUBCUT SCH (18:00)
[2017-10-20] MEDS ORDERED: cefTRIAXone(*) 1 GM in NS 0.9% 50 ML* 50 ML IVPB SCH (18:30)
[2017-10-20] MEDS: fentaNYL Patch Check Q Shift 1 NOTE SCH (19:56)
[2017-10-20] MEDS ORDERED: traZODone TAB* 50 MG TAB PO SCH (21:00)
[2017-10-20] MEDS ORDERED: Sertraline* 100 MG TAB PO SCH (21:00)
[2017-10-20] MEDS ORDERED: Temazepam CAP* 15 MG PO SCH (21:00)
[2017-10-20] MEDS: Insulin LISPRO* 1 UNITS UNIT SUBCUT SCH (21:14)
[2017-10-20] MEDS: Potassium Chlor TAB* 10 MEQ TAB.ER PO SCH (21:15)
[2017-10-20] MEDS: Omeprazole CAP* 20 MG PO SCH (21:15)
[2017-10-20] MEDS: Docusate CAP* 100 MG PO SCH (21:15)
[2017-10-20] MEDS: THEOPHYLLINE TAB.SA* 200 MG PO SCH (21:30)
[2017-10-20] MEDS ORDERED: hydrALAZINE IV* 20 MG/ML VIAL IV PRN (21:57)
[2017-10-20] MEDS: Acetaminophen TAB* 325 MG PO PRN (22:20)
[2017-10-21] MEDS: fentaNYL Patch Check Q Shift 1 NOTE SCH (06:52)
[2017-10-21] MEDS ORDERED: Atorvastatin* 10 MG TAB PO SCH (09:00)
[2017-10-21] MEDS ORDERED: Aspirin TAB* 325 MG PO SCH (09:00)
[2017-10-21] MEDS ORDERED: Ferrous Sulfate TAB* 325 MG PO SCH (09:00)
[2017-10-21] MEDS ORDERED: Lisinopril TAB* 5 MG PO SCH (09:00)
[2017-10-21] MEDS ORDERED: Hydrochlorothiazide TAB* 25 MG PO SCH (09:00)
[2017-10-21] MEDS ORDERED: Montelukast Sodium TAB* 10 MG PO SCH (09:00)
[2017-10-21] MEDS ORDERED: Tamsulosin CAP* 0.4 MG PO SCH (09:00)
[2017-10-21] MEDS: Acetaminophen TAB* 325 MG PO PRN (09:36)
[2017-10-21] MEDS: THEOPHYLLINE TAB.SA* 200 MG PO SCH (09:37)
[2017-10-21] MEDS: Potassium Chlor TAB* 10 MEQ TAB.ER PO SCH (09:37)
[2017-10-21] MEDS: Docusate CAP* 100 MG PO SCH (09:38)
[2017-10-21] MEDS: Omeprazole CAP* 20 MG PO SCH (09:38)
[2017-10-21] MEDS: Insulin LISPRO* 1 UNITS UNIT SUBCUT SCH ×2 (09:49→12:55)
--- NOTE | 2017-10-21 13:35 | PN ---
Subjective Date of Service: 10/21/17 Interval History: Still some cough with small amts of yellow sputum. Abd pain better, N&V resolved. No BM since admission. Family History: Findings - Patient is adopted and doesn't know his family hx Social History: Findings - Quit smoking 10 yrs ago. No alcohol abuse. Daughter Kanwal is his SDM. Lives alone, very close to his daughter. Past Medical History: Findings - TURP 2010. BL cataract sx. Chronic neck pain following injury. Objective Active Medications: Acetaminophen (Tylenol Tab*) 650 mg PO Q6H PRN PRN Reason: FEVER/PAIN Last Admin: 10/21/17 09:36 Dose: 650 mg Aspirin (Aspirin Tab*) 325 mg PO DAILY [facility] Last Admin: 10/21/17 09:38 Dose: 325 mg Atorvastatin Calcium (Lipitor*) 10 mg PO DAILY [facility] Last Admin: 10/21/17 09:38 Dose: 10 mg Azithromycin (Zithromax Tab*) 250 mg PO DAILY [facility] Cholecalciferol (Vitamin D Tab*) 1,000 units PO QPM [facility] Last Admin: 10/20/17 19:42 Dose: 1,000 units Dextrose (D50w Syringe 50 Ml*) 12.5 gm IV PUSH .FOR FS < 60 - SS PRN PRN Reason: FS < 60 Docusate Sodium (Colace Cap*) 100 mg PO BID [facility] Last Admin: 10/21/17 09:38 Dose: 100 mg Enoxaparin Sodium (Lovenox(*)) 40 mg SUBCUT Q24H [facility] Last Admin: 10/20/17 19:43 Dose: 40 mg Fentanyl (Duragesic Patch 12 Mcg/Hr *) 12 mcg TRANSDERM Q72H [facility] Last Admin: 10/20/17 19:49 Dose: 12 mcg Fentanyl (Duragesic Patch 25 Mcg/Hr*) 25 mcg TRANSDERM Q72H [facility] Last Admin: 10/20/17 19:50 Dose: 25 mcg Ferrous Sulfate (Ferrous Sulfate Tab*) 325 mg PO DAILY [facility] Last Admin: 10/21/17 09:37 Dose: 325 mg Guaifenesin (Robitussin*) 10 ml PO QID [facility] Hydrochlorothiazide (Hydrodiuril Tab*) 25 mg PO DAILY [facility] Last Admin: 10/21/17 09:37 Dose: 25 mg Ceftriaxone Sodium 1 gm/ (Sodium Chloride) 50 mls @ 200 mls/hr IVPB Q24H [facility] Insulin Glargine (Lantus(*)) 38 units SUBCUT QPM [facility] Last Admin: 10/20/17 20:03 Dose: 38 units Insulin Human Lispro (Humalog*) 0 units SUBCUT ACHS [facility]; Protocol Last Admin: 10/21/17 12:55 Dose: Not Given Lisinopril (Prinivil Tab*) 5 mg PO DAILY [facility] Last Admin: 10/21/17 09:45 Dose: 5 mg Montelukast Sodium (Singulair Tab*) 10 mg PO DAILY [facility] Last Admin: 10/21/17 09:38 Dose: 10 mg Morphine Sulfate (Morphine Oral.Soln 10 Mg*) 15 mg PO Q4H PRN PRN Reason: PAIN Nitroglycerin (Nitroglycerin Tab 0.4 Mg*) 0.4 mg SL Q5M PRN PRN Reason: PAIN - CHEST Omeprazole (Prilosec Cap*) 20 mg PO BID [facility] Last Admin: 10/21/17 09:38 Dose: 20 mg Pharmacy Profile Note (Fentanyl Patch Check Q Shift) 1 note N/A 0700,1900 [facility] Last Admin: 10/21/17 06:52 Dose: 1 note Potassium Chloride (Klor Con Er Tab*) 10 meq PO BID [facility] Last Admin: 10/21/17 09:37 Dose: 10 meq Prazosin HCl (Minipress Cap*) 4 mg PO QPM [facility] Last Admin: 10/20/17 21:30 Dose: 4 mg Sertraline HCl (Zoloft*) 200 mg PO BEDTIME [facility] Last Admin: 10/20/17 21:15 Dose: 200 mg Tamsulosin HCl (Flomax Cap*) 0.4 mg PO DAILY [facility] Last Admin: 10/21/17 09:37 Dose: 0.4 mg Temazepam (Restoril Cap*) 30 mg PO BEDTIME [facility] Last Admin: 10/20/17 21:15 Dose: 30 mg Theophylline (Dheeraj Dur*) 400 mg PO BID [facility] Last Admin: 10/21/17 09:37 Dose: 400 mg Trazodone HCl (Desyrel Tab*) 50 mg PO BEDTIME [facility] Last Admin: 10/20/17 21:15 Dose: 50 mg Vital Signs - 8 hr 10/21/17 07:31 Temperature 97.7 F Pulse Rate 55 Respiratory 14 Rate Blood Pressure 147/61 (mmHg) O2 Sat by Pulse 96 Oximetry Oxygen Devices in Use Now: None Appearance: Alert, sitting on the edge of his bed. In good spirits. Looks comfortable. Eyes: No Scleral Icterus Neck: NL Appearance and Movements; NL JVP, No Thyroid Enlargement, Masses Respiratory: Symmetrical Chest Expansion and Respiratory Effort, Clear to Auscultation, Clear to Percussion Cardiovascular: NL Sounds; No Murmurs; No JVD, RRR, No Edema, - Abdominal: NL Sounds; No Tenderness; No Distention, No Hepatosplenomegaly Extremities: No Edema, No Clubbing, Cyanosis, - Skin: No Rash or Ulcers Neurological: Alert and Oriented x 3, NL Sensation Result Diagrams: 10/20/17 11:51 10/20/17 11:51 Assess/Plan/Problems-Billing Assessment: - Patient Problems (1) Pneumonia Current Visit: Yes Status: Acute Code(s): J18.9 - PNEUMONIA, UNSPECIFIED ORGANISM SNOMED Code(s): 886181821 Comment: Continue ceftriaxne and azithromycin. (2) Chronic pain Current Visit: Yes Status: Acute Code(s): G89.29 - OTHER CHRONIC PAIN SNOMED Code(s): 58195120 Comment: Home doses of MS and fentanyl patch ordered. (3) Diabetes Current Visit: Yes Status: Acute Code(s): E11.9 - TYPE 2 DIABETES MELLITUS WITHOUT COMPLICATIONS SNOMED Code(s): 02439665 Comment: Resume metformin 10/21. Home dose Lantus. Lispro by SS. (4) HTN (hypertension) Current Visit: Yes Status: Acute Code(s): I10 - ESSENTIAL (PRIMARY) HYPERTENSION SNOMED Code(s): 00792867 Comment: Home dose lisinopril, prazosin, thiazide. (5) Depression Current Visit: Yes Status: Acute Code(s): F32.9 - MAJOR DEPRESSIVE DISORDER , SINGLE EPISODE, UNSPECIFIED SNOMED Code(s): 85719651 Status and Disposition: Patient is transferred to the [facility].
[2017-10-21 14:11] VITALS: BP 140/70
[2017-10-21] MEDS ORDERED: Omeprazole CAP* 20 MG PO SCH (16:30)
[2017-10-21] MEDS ORDERED: guaiFENesin LIQ* 100 MG/5 ML UDC PO SCH (17:00)
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
--- NOTE | 2017-10-21 17:46 | CONSULT ---
Consult Consult: INPATIENT PAIN CONSULT-BRIEF Royalsushma Mcallister (Mike) is well known to the pain clinic. He is a shelter patient. He injured his neck working for [employer] many years ago. He ultimately had a cervical fusion. He has been on chronic opioid treatment for many years. He expressed the wish to go off them, maybe with the help of medical marijuana. He was admitted and is now going to the [facility] for SI/Depression PAST MEDICAL HISTORY: shoulder surgery, knee replacement, Neck surgery, PTSD ALLERGIES: Cipro, Flexeril Current Medications Acetaminophen (Tylenol Tab*) 650 mg PO Q6H PRN PRN Reason: FEVER/PAIN Last Admin: 10/21/17 09:36 Dose: 650 mg Aspirin (Aspirin Tab*) 325 mg PO DAILY [facility] Last Admin: 10/21/17 09:38 Dose: 325 mg Atorvastatin Calcium (Lipitor*) 10 mg PO DAILY [facility] Last Admin: 10/21/17 09:38 Dose: 10 mg Azithromycin (Zithromax Tab*) 250 mg PO DAILY [facility] Bupropion HCl (Wellbutrin Xl *) 150 mg PO DAILY [facility]; Protocol Cefuroxime Axetil (Ceftin Tab(*)) 500 mg PO BID [facility] Cholecalciferol (Vitamin D Tab*) 1,000 units PO QPM [facility] Last Admin: 10/20/17 19:42 Dose: 1,000 units Dextrose (D50w Syringe 50 Ml*) 12.5 gm IV PUSH .FOR FS < 60 - SS PRN PRN Reason: FS < 60 Docusate Sodium (Colace Cap*) 100 mg PO BID [facility] Last Admin: 10/21/17 09:38 Dose: 100 mg Enoxaparin Sodium (Lovenox(*)) 40 mg SUBCUT Q24H [facility] Last Admin: 10/20/17 19:43 Dose: 40 mg Fentanyl (Duragesic Patch 12 Mcg/Hr *) 12 mcg TRANSDERM Q72H [facility] Last Admin: 10/20/17 19:49 Dose: 12 mcg Fentanyl (Duragesic Patch 25 Mcg/Hr*) 25 mcg TRANSDERM Q72H [facility] Last Admin: 10/20/17 19:50 Dose: 25 mcg Ferrous Sulfate (Ferrous Sulfate Tab*) 325 mg PO DAILY [facility] Last Admin: 10/21/17 09:37 Dose: 325 mg Guaifenesin (Robitussin*) 10 ml PO QID [facility] Hydrochlorothiazide (Hydrodiuril Tab*) 25 mg PO DAILY [facility] Last Admin: 10/21/17 09:37 Dose: 25 mg Insulin Glargine (Lantus(*)) 38 units SUBCUT QPM [facility] Last Admin: 10/20/17 20:03 Dose: 38 units Insulin Human Lispro (Humalog*) 0 units SUBCUT ACHS [facility]; Protocol Last Admin: 10/21/17 12:55 Dose: Not Given Lisinopril (Prinivil Tab*) 5 mg PO DAILY [facility] Last Admin: 10/21/17 09:45 Dose: 5 mg Montelukast Sodium (Singulair Tab*) 10 mg PO DAILY [facility] Last Admin: 10/21/17 09:38 Dose: 10 mg Morphine Sulfate (Morphine Oral.Soln 10 Mg*) 15 mg PO Q4H PRN PRN Reason: PAIN Nitroglycerin (Nitroglycerin Tab 0.4 Mg*) 0.4 mg SL Q5M PRN PRN Reason: PAIN - CHEST Omeprazole (Prilosec Cap*) 20 mg PO 0730,1630 [facility] Pharmacy Profile Note (Fentanyl Patch Check Q Shift) 1 note N/A 0700,1900 [facility] Last Admin: 10/21/17 06:52 Dose: 1 note Potassium Chloride (Klor Con Er Tab*) 10 meq PO BID [facility] Last Admin: 10/21/17 09:37 Dose: 10 meq Prazosin HCl (Minipress Cap*) 4 mg PO QPM [facility] Last Admin: 10/20/17 21:30 Dose: 4 mg Sertraline HCl (Zoloft*) 200 mg PO BEDTIME [facility] Last Admin: 10/20/17 21:15 Dose: 200 mg Tamsulosin HCl (Flomax Cap*) 0.4 mg PO DAILY [facility] Last Admin: 10/21/17 09:37 Dose: 0.4 mg Temazepam (Restoril Cap*) 30 mg PO BEDTIME [facility] Last Admin: 10/20/17 21:15 Dose: 30 mg Theophylline (Dheeraj Dur*) 400 mg PO BID [facility] Last Admin: 10/21/17 09:37 Dose: 400 mg Trazodone HCl (Desyrel Tab*) 50 mg PO BEDTIME [facility] Last Admin: 10/20/17 21:15 Dose: 50 mg SOCIAL HISTORY: non smoker, non drinker Vital Signs Temp Pulse Resp BP Pulse Ox 98.1 F 53 15 140/70 96 10/21/17 11:58 10/21/17 11:58 10/21/17 11:58 10/21/17 11:58 10/21/17 11:58 EXAM:(Brief) GENERAL: Looks comfortable. Alert, thinking clear. Oriented NEUROLOGIC: Non focal exam. Strength ok in 4 extremities ASSESSMENT: 1. Failed Neck Surgery 2. Chronic Opioid Use PLAN: We spoke briefly about medical marijuana. I explained that it was not covered by insurance, nor is it available in [place], closest dispensaries are [facility] or [facility]. He thought it would be cost-prohibitive. We will discuss weaning at his next pain clinic appointment in October.
[2017-10-21] MEDS ORDERED: cefTRIAXone(*) 1 GM in NS 0.9% 50 ML* 50 ML IVPB SCH (20:00)
[2017-10-21] MEDS ORDERED: ceFUROXime TAB(*) 250 MG PO SCH ×2 (21:00)
[2017-10-21] MEDS ORDERED: metFORMIN* 1,000 MG TAB PO SCH (21:00)
--- NOTE | 2017-10-22 00:39 | DS ---
CC: Dr. Deepthi Molina * DISCHARGE SUMMARY: DATE OF ADMISSION: 10/20/17 DATE OF DISCHARGE: 10/21/17 HISTORY OF PRESENT ILLNESS: This 67-year-old man presented with several weeks of abdominal pain, nausea, vomiting, diarrhea as well as cough. On evaluation in the emergency room, he was found to have small pneumonia in the left costovertebral angle of the lung. CT of the abdomen and pelvis is otherwise really nonrevealing. He did have IV contrast. He was started on ceftriaxone and azithromycin. He did well in hospital. His vomiting and nausea resolved. He had no bowel movements. He ate fairly well. Dr. Carbajal evaluated him for his depression. We starting him on bupropion XL 150 mg starting 10/22/17 in the morning. He is being discharged voluntarily to the [facility]. He should get 4 days azithromycin 250 mg daily, starting 10/22/17 and 6 days of cefuroxime 500 mg b.i.d. starting in the p.m. of 10/21/17. FINAL DIAGNOSES: 1. Pneumonia. 2. Chronic pain. 3. Diabetes. 4. Hypertension. 5. Depression. 6. Neurogenic bladder. DISCHARGE MEDICATIONS: 1. Acetaminophen 650 mg every 4 hours p.r.n. 2. Aspirin 325 mg daily. 3. Atorvastatin 10 mg daily. 4. Azithromycin 250 mg daily for 4 days. 5. Bupropion XL 150 mg daily. 6. Cefuroxime 500 mg b.i.d. for a total of 12 doses. 7. Cholecalciferol 1000 units every evening. 8. Docusate 100 mg b.i.d. 9. Enoxaparin 40 mg subcutaneous every 24 hours. 10. Fentanyl patch 25 plus 12 mcg/hr together. 11. Ferrous sulfate 325 mg daily. 12. Guaifenesin liquid 10 mL q.i.d. 13. Hydrochlorothiazide 25 mg daily. 14. Glargine insulin 38 units every p.m. 15. Lispro by sliding scale. 16. Lisinopril 5 mg daily. 17. Montelukast 10 mg daily. 18. Morphine oral solution 15 mL every 4 hours p.r.n. 19. Nitroglycerin 0.4 mg sublingual every 5 minutes p.r.n. 20. Omeprazole 20 mg b.i.d. 21. Potassium chloride 10 mEq b.i.d. 22. Prazosin 4 mg every evening. 23. Sertraline 200 mg h.s. 24. Tamsulosin 0.4 mg daily. 25. Temazepam 30 mg at bedtime. 26. Theophylline 400 mg b.i.d. 27. Trazodone 50 mg at bedtime. The patient is discharged to the [facility]. [id number]/[facility] #: [id number] MTDD
[2017-10-22] MEDS ORDERED: BuPROPion XL* 150 MG TAB.XL PO SCH (09:00)
[2017-10-22] MEDS ORDERED: Azithromycin TAB* 250 MG PO SCH (09:00)
--- NOTE | 2017-10-22 11:13 | ED ---
Carlos Alberto Abeeb Tenzin, scribed for Lio Bolivar MD on 10/20/17 at 1203 . Complex/Multi-Sys Presentation - HPI Summary HPI Summary: Pt is a 67 years old male presenting to the ED complaining of D/V/N and bad abd pain and cramps since few weeks ago without any improvement. Today he reports that he had an episode of diarrhea and vomiting at 0930. Pt notes that it all started with sinus infection with associated symptoms of runny nose and phlegm. But he also reports that he always have sinus problems throughout the year. No sinus surgery is done. Pt is also complaining of general malaise, bad CRANE, dry mouth, and reports that his urine smells bad. Pt notes that he has intermittent vomiting and describes it as bad throw ups and also notes his diarrhea is fluid. He is complaining that he switch between diarrhea and constipation. Pt denies: Fever, Chills, Erythema (eyes), Sore throat, chest pain , SOB, cough, Dysuria, Hematuria, Edema, rash. and Dizziness. Pt notes that alleviating factors to his sinus problem are using saline nasal spray and hot showers. No aggravating factors were noted. Pt reports that he had a stress test done and his doctor told him that everything is okay with him. Pt notes that no one is sick around him. - History Of Current Complaint Chief Complaint: EDGeneral Time Seen by Provider: 10/20/17 11:34 Hx Obtained From: Patient Onset/Duration: Lasting Weeks - few weeks, Still Present Associated Signs And Symptoms: Positive: Weakness, Nausea, Vomiting, Diarrhea, Abdominal Pain, Other - General malaise.. Negative: SOB, Cough, Chest Pain, Edema, Dysuria, Fever - Allergies/Home Medications Allergies/Adverse Reactions: Allergies Allergy/AdvReac Type Severity Reaction Status Date / Time ciprofloxacin [From Cipro] Allergy rash, Verified 10/20/17 12:08 itching cyclobenzaprine Allergy Swelling Verified 10/20/17 12:08 Of Face,Lips,& Throat procaine [From Novocain] Allergy rash, Verified 10/20/17 12:08 itching Home Medications: Home Medications Aspirin TAB* [Aspirin 325 MG TAB*] 325 mg PO DAILY 10/20/17 [History Confirmed 10/20/17] Atorvastatin* [Lipitor*] 10 mg PO DAILY 10/20/17 [History Confirmed 10/20/17] Biotin 1,000 mcg PO QPM 10/20/17 [History Confirmed 10/20/17] Cholecalciferol TAB* [Vitamin D TAB*] 1,000 unit PO QPM 10/20/17 [History Confirmed 10/20/17] Docusate CAP* [Colace Cap*] 100 mg PO BID 10/20/17 [History Confirmed 10/20/17] Ferrous Sulfate TAB* 325 mg PO DAILY 10/20/17 [History Confirmed 10/20/17] Hydrochlorothiazide TAB* [Hydrodiuril TAB*] 25 mg PO DAILY 10/20/17 [History Confirmed 10/20/17] Insulin ASPART (NF) [Novolog (NF)] 0 units SUBCUT DAILY 10/20/17 [History Confirmed 10/20/17] Insulin GLARGINE(*) [Lantus(*)] 38 units SUBCUT QPM 10/20/17 [History Confirmed 10/20/17] Lisinopril TAB* [Prinivil TAB*] 5 mg PO DAILY 10/20/17 [History Confirmed ] Montelukast Sodium TAB* [Singulair TAB*] 10 mg PO DAILY 10/20/17 [History Confirmed 10/20/17] Morphine TAB (NF) 1 - 2 tab PO Q4H PRN 10/20/17 [History Confirmed 10/20/17] Nitroglycerin TAB 0.4 MG* 0.4 mg SL Q5M PRN 10/20/17 [History Confirmed 10/20/17 ] [place]-3 Fatty Acids (Nf) [Fish Oil (NF)] 1,000 mg PO BID 10/20/17 [History Confirmed 10/20/17] Omeprazole CAP* [Prilosec CAP* 20 MG] 20 mg PO BID 10/20/17 [History Confirmed 10/20/17] Potassium Chlor TAB* [Klor Con ER TAB*] 10 meq PO BID 10/20/17 [History Confirmed 10/20/17] Prazosin CAP* [Minipress CAP*] 10 mg PO QPM 10/20/17 [History Confirmed 10/20/17 ] Sertraline* [Zoloft*] 200 mg PO BEDTIME 10/20/17 [History Confirmed 10/20/17] Tamsulosin CAP* [Flomax CAP*] 0.4 mg PO DAILY 10/20/17 [History Confirmed ] Temazepam CAP* [Restoril CAP*] 30 mg PO BEDTIME 10/20/17 [History Confirmed ] Theophylline TAB* [Dheeraj Dur*] 400 mg PO BID 10/20/17 [History Confirmed 10/20/17 ] fentaNYL PATCH 12 MCG/HR * [Duragesic Patch 12 Mcg/Hr *] 12 mcg TRANSDERM Q72H 10/20/17 [History Confirmed 10/20/17] fentaNYL PATCH 25 MCG/HR* [Duragesic PATCH 25 Mcg/Hr*] 25 mcg TRANSDERM Q72H [History Confirmed 10/20/17] metFORMIN* [Glucophage 1000 MG TAB *] 1,000 mg PO BID 10/20/17 [History Confirmed 10/20/17] traZODone TAB* [Desyrel TAB*] 50 mg PO BEDTIME 10/20/17 [History Confirmed 10/20] PMH/Surg Hx/FS Hx/Imm Hx Endocrine/Hematology History: Reports: Hx Diabetes - TYPE II Denies: Hx Systemic Lupus Erythematosus Cardiovascular History: Reports: Hx Hypercholesterolemia, Hx Hypotension, Hx Hypertension Denies: Hx Congestive Heart Failure, Hx Pacemaker/ICD, Other Cardiovascular Problems/Disorders Respiratory History: Reports: Hx Asthma, Hx Chronic Obstructive Pulmonary Disease (COPD), Hx Sleep Apnea, Other Respiratory Problems/Disorders - COPD, SOB GI History: Reports: Hx Gastroesophageal Reflux Disease Denies: Other GI Disorders History: Reports: Other Problems/Disorders - Asencio catheter in place Denies: Hx Dialysis, Hx Renal Disease Musculoskeletal History: Reports: Hx Arthritis, Hx Back Problems, Hx Orthopedic Injury - Torn Right Rotator Cuff June 2014 Denies: Hx Rheumatoid Arthritis Sensory History: Reports: Hx Cataracts - ASHLY, Hx Contacts or Glasses - GLASSES Denies: Hx Hearing Aid Opthamlomology History: Reports: Hx Cataracts - ASHLY, Hx Contacts or Glasses - GLASSES Neurological History: Denies: Other Neuro Impairments/Disorders Psychiatric History: Reports: Hx Anxiety Denies: Hx Panic Disorder - Cancer History Cancer Type, Location and Year: bladder Hx Chemotherapy: No - Surgical History Surgery Procedure, Year, and Place[place] [facility] [place]. EARLY CSP FUSION. CSP LAMINECTOMYS. 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 TENS UNIT X2. MORPHINE PUMPS IMPLANTED AND REMOVED. Left Knee replacement 01/2016. Shoulder surgery 06/2015. Total tooth extraction 2014 and dentures Hx Anesthesia Reactions: No - Immunization History Date of Tetanus Vaccine: 04/23/06 Infectious Disease History: No Infectious Disease History: Denies: Traveled Outside the [place] in Last 30 Days - Family History Known Family History: Positive: Diabetes - Social History Alcohol Use: None Substance Use Type: Reports: None Substance Use Comment - Amount & Last Used: Previous hx. Went to rehab [address] [place] [address] Smoking Status (MU): Former Smoker Type: Cigarettes Amount Used/How Often: PACK A DAY Have You Smoked in the Last Year: No Review of Systems Negative: Fever, Chills Negative: Erythema Positive: Nasal Discharge. Negative: Sore Throat Negative: Chest Pain Negative: Shortness Of Breath, Cough Positive: Abdominal Pain, Vomiting, Diarrhea, Nausea Positive: other - bad smelling uria. . Negative: dysuria, hematuria Negative: Myalgia, Edema Negative: Rash All Other Systems Reviewed And Are Negative: Yes Physical Exam - Summary Physical Exam Summary: Constitutional: Well-developed, Well-nourished, Alert. (-) Distressed Skin: Warm, Dry HENT: Normocephalic; Atraumatic, DRY ORAL AND MUCOSA Eyes: Conjunctiva normal Neck: Musculoskeletal ROM normal neck. (-) JVD, (-) Stridor, (-) Tracheal deviation Cardio: Rhythm regular, rate normal, Heart sounds normal; Intact distal pulses; The pedal pulses are 2+ and symmetric. Radial pulses are 2+ and symmetric. (-) Murmur Pulmonary/Chest wall: Effort normal. (-) Respiratory distress, (-) Wheezes, (-) Rales Abd: Soft, (+) EXTREME LOWER ABDOMEN TENDERNESS (-) Distension, (-) Guarding, (- ) Rebound Musculoskeletal: (-) Edema Lymph: (-) Cervical adenopathy Neuro: Alert, Oriented x3 Psych: Mood and affect Normal Triage Information Reviewed: Yes Vital Signs On Initial Exam: Initial Vitals Temp Pulse Resp BP Pulse Ox 98.7 F 86 17 150/68 97 10/20/17 11:24 10/20/17 11:24 10/20/17 11:24 10/20/17 11:24 10/20/17 11:24 Vital Signs Reviewed: Yes Diagnostics - Vital Signs Vital Signs Temp Pulse Resp BP Pulse Ox 10/20/17 11:24 98.7 F 86 17 150/68 97 - Laboratory Result Diagrams: 10/20/17 11:51 10/20/17 11:51 Lab Statement: Any lab studies that have been ordered have been reviewed, and results considered in the medical decision making process. - Radiology CHEST X RAY Radiology Interpretation Completed By: Radiologist - IMPRESSION: LEFT basilar pneumonia. Dr. Bolivar reviewed the report. - CT ABD/PELVIS CT Interpretation Completed By: Radiologist - IMPRESSION: 1. Left basilar infiltrate consistent with pneumonitis. Suggest follow-up plain radiographs. 2. Mild hepatosplenomegaly. 3. Stable right adrenal lesion, likely an adenoma. 4. Mild gaseous distention but no findings of obstruction or enteric inflammatory change. 5. Mild trabeculation of bladder. 6. Cholecystectomy - EKG 12:11 Cardiac Rate: NL - at 61 BPM EKG Interpretation: otherwise normal ECG. Complex Multi-Symp Course/Dx Course Of Treatment: Pt is a 67 years old male presenting to the ED complaining of D/V/N and bad abd pain and cramps since few weeks ago without any improvement. At the ED today, pt was given IV fluids. UA is obtained. CT scans and Chest X ray was taken. Differential Dx are Gastroenteritis and Colitis. Per nurse, Pt had SI with thoughts of overdose. Pt will be admitted to the hospital today. - Diagnoses Provider Diagnoses: Suicidal ideations, PNA (pneumonia) Discharge - Sign-Out/Discharge Documenting (check all that apply): Discharge/Admit/Transfer - Admit - Discharge Plan Condition: Stable Disposition: ADMITTED TO [facility] Referrals: Deepthi Jacobs MD [Primary Care Provider] - The documentation as recorded by the Carlos Alberto juan Tenzin accurately reflects the service I personally performed and the decisions made by , Lio Bolivar MD.
== END 2017-10-21 17:45 ==
LOC: ED 10:51 → INTOOBSV 17:33 → MED 17:33
PROVIDERS: ADMIT Internal Medicine; ATTEND Internal Medicine
DX: J18.9 Pneumonia, unspecified organism (principal); G89.29 Other chronic pain; E11.9 Type 2 diabetes mellitus without complications; I10 Essential (primary) hypertension; F32.9 Major depressive disorder, single episode, unspecified; N31.9 Neuromuscular dysfunction of bladder, unspecified; J44.9 Chronic obstructive pulmonary disease, unspecified; K21.9 Gastro-esophageal reflux disease without esophagitis; Z79.899 Other long term (current) drug therapy; Z79.01 Long term (current) use of anticoagulants; Z79.82 Long term (current) use of aspirin; Z79.4 Long term (current) use of insulin; Z88.1 Allergy status to other antibiotic agents; Z88.8 Allergy status to other drugs, medicaments and biological substances; Z87.891 Personal history of nicotine dependence; Z83.3 Family history of diabetes mellitus; R45.851 Suicidal ideations
CPT/HCPCS: 36415; 71046; 74177; 80053; 80320; 80329; 81003; 81015; 82803; 83605; 84484; 85025; 86140; 87077; 87086; 93005; 96372; 99284; A9270-GY; G0378; G0480; J0456; J0696; J1650; Q9967

== ENCOUNTER 2017-10-21 14:21 | Inpatient (IN) | payer MEDICARE ==
[2017-10-21] MEDS ORDERED: Acetaminophen TAB* 325 MG PO PRN (14:57)
[2017-10-21] MEDS ORDERED: Al Hydrox/Mg Hydrox/Simet LIQ* 30 ML UDC PO PRN (14:57)
[2017-10-21] MEDS ORDERED: Nitroglycerin TAB 0.4 MG* 0.4 MG TAB SL PRN ×2 (14:58→19:15)
[2017-10-21] MEDS ORDERED: fentaNYL PATCH 12 MCG/HR TRANSDERM SCH (15:00)
[2017-10-21] MEDS ORDERED: fentaNYL PATCH 25 MCG/HR TRANSDERM SCH (15:00)
[2017-10-21] MEDS: Insulin GLARGINE(*) 1 UNITS UNIT SUBCUT SCH (19:32)
[2017-10-21] MEDS: Cholecalciferol TAB* 1000 UNITS PO SCH (19:33)
[2017-10-21] MEDS: Omeprazole CAP* 20 MG PO SCH (19:34)
[2017-10-21] MEDS ORDERED: Dextrose 50% Syringe 50 ML* 25 GM/50 ML SYRINGE IV PUSH PRN (21:24)
[2017-10-21] MEDS: ceFUROXime TAB(*) 250 MG PO SCH (21:54)
[2017-10-21] MEDS: Docusate CAP* 100 MG PO SCH (21:54)
[2017-10-21] MEDS: metFORMIN* 1,000 MG TAB PO SCH (21:55)
[2017-10-21] MEDS: CMCS:OMEGA-3 FATTY ACIDS (NF) 1,000 MG CAP PO SCH (21:56)
[2017-10-21] MEDS: Potassium Chlor TAB* 10 MEQ TAB.ER PO SCH (21:56)
[2017-10-21] MEDS: Prazosin CAP* 1 MG PO SCH (21:57)
[2017-10-21] MEDS: Temazepam CAP* 15 MG PO SCH (21:58)
[2017-10-21] MEDS: Sertraline* 100 MG TAB PO SCH (21:58)
[2017-10-21] MEDS: traZODone TAB* 50 MG TAB PO SCH (21:59)
[2017-10-21] MEDS: THEOPHYLLINE TAB.SA* 200 MG PO SCH (22:09)
[2017-10-21] MEDS: Insulin LISPRO* 1 UNITS UNIT SUBCUT SCH (22:11)
[2017-10-21] MEDS: fentaNYL Patch Check Q Shift 1 NOTE SCH (22:52)
[2017-10-22] MEDS: Insulin LISPRO* 1 UNITS UNIT SUBCUT SCH ×4 (08:03→22:07)
[2017-10-22] MEDS: fentaNYL Patch Check Q Shift 1 NOTE SCH ×2 (08:52→19:13)
[2017-10-22] MEDS: Potassium Chlor TAB* 10 MEQ TAB.ER PO SCH ×2 (08:53→22:42)
[2017-10-22] MEDS: Tamsulosin CAP* 0.4 MG PO SCH (08:53)
[2017-10-22] MEDS: Montelukast Sodium TAB* 10 MG PO SCH (08:54)
[2017-10-22] MEDS: Lisinopril TAB* 5 MG PO SCH (08:54)
[2017-10-22] MEDS: Hydrochlorothiazide TAB* 25 MG PO SCH (08:54)
[2017-10-22] MEDS: Docusate CAP* 100 MG PO SCH ×2 (08:54→22:41)
[2017-10-22] MEDS: Ferrous Sulfate TAB* 325 MG PO SCH (08:54)
[2017-10-22] MEDS: Aspirin TAB* 325 MG PO SCH (08:54)
[2017-10-22] MEDS: Omeprazole CAP* 20 MG PO SCH ×2 (08:55→17:15)
[2017-10-22] MEDS: metFORMIN* 1,000 MG TAB PO SCH ×2 (08:55→22:41)
[2017-10-22] MEDS: BuPROPion XL* 150 MG TAB.XL PO SCH (08:55)
[2017-10-22] MEDS: Atorvastatin* 10 MG TAB PO SCH (08:55)
[2017-10-22] MEDS: CMCS:OMEGA-3 FATTY ACIDS (NF) 1,000 MG CAP PO SCH ×2 (08:56→22:38)
[2017-10-22] MEDS: THEOPHYLLINE TAB.SA* 200 MG PO SCH ×2 (08:56→22:39)
[2017-10-22] MEDS: ceFUROXime TAB(*) 250 MG PO SCH ×2 (08:57→22:38)
[2017-10-22] MEDS: Azithromycin TAB* 250 MG PO SCH (08:58)
[2017-10-22] MEDS: Cholecalciferol TAB* 1000 UNITS PO SCH (18:34)
[2017-10-22] MEDS: Insulin GLARGINE(*) 1 UNITS UNIT SUBCUT SCH (18:35)
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
[2017-10-22] MEDS: Temazepam CAP* 15 MG PO SCH (22:40)
[2017-10-22] MEDS: traZODone TAB* 50 MG TAB PO SCH (22:42)
[2017-10-22] MEDS: Sertraline* 100 MG TAB PO SCH (22:43)
[2017-10-22] MEDS: Morphine ORAL.SOLN 10 mg* 2 MG/ML UDC 5 ml PO PRN (22:44)
[2017-10-22] MEDS: Prazosin CAP* 1 MG PO SCH (22:47)
[2017-10-23] MEDS: Insulin LISPRO* 1 UNITS UNIT SUBCUT SCH ×4 (08:35→21:05)
[2017-10-23] MEDS: Azithromycin TAB* 250 MG PO SCH (09:40)
[2017-10-23] MEDS: ceFUROXime TAB(*) 250 MG PO SCH ×2 (09:40→21:04)
[2017-10-23] MEDS: Montelukast Sodium TAB* 10 MG PO SCH (09:40)
[2017-10-23] MEDS: BuPROPion XL* 150 MG TAB.XL PO SCH (09:40)
[2017-10-23] MEDS: Omeprazole CAP* 20 MG PO SCH ×2 (09:40→17:05)
[2017-10-23] MEDS: THEOPHYLLINE TAB.SA* 200 MG PO SCH ×2 (09:40→21:42)
[2017-10-23] MEDS: Aspirin TAB* 325 MG PO SCH (09:41)
[2017-10-23] MEDS: Docusate CAP* 100 MG PO SCH ×2 (09:41→21:04)
[2017-10-23] MEDS: Hydrochlorothiazide TAB* 25 MG PO SCH (09:41)
[2017-10-23] MEDS: Potassium Chlor TAB* 10 MEQ TAB.ER PO SCH ×2 (09:41→21:05)
[2017-10-23] MEDS: Atorvastatin* 10 MG TAB PO SCH (09:41)
[2017-10-23] MEDS: Lisinopril TAB* 5 MG PO SCH (09:41)
[2017-10-23] MEDS: Tamsulosin CAP* 0.4 MG PO SCH (09:41)
[2017-10-23] MEDS: Ferrous Sulfate TAB* 325 MG PO SCH (09:41)
[2017-10-23] MEDS: CMCS:OMEGA-3 FATTY ACIDS (NF) 1,000 MG CAP PO SCH ×2 (09:42→21:41)
[2017-10-23] MEDS: metFORMIN* 1,000 MG TAB PO SCH ×2 (09:42→21:05)
[2017-10-23] MEDS: Morphine ORAL.SOLN 10 mg* 2 MG/ML UDC 5 ml PO PRN ×2 (09:48→21:15)
[2017-10-23] MEDS: fentaNYL Patch Check Q Shift 1 NOTE SCH ×2 (10:08→21:07)
--- NOTE | 2017-10-23 15:09 | RAD ---
Indication: Right leg edema. Duplex Doppler sonography of the deep venous system of the right lower extremity deep venous system was performed. Bilaterally the common femoral veins appear patent and compressible. Right proximal greater saphenous vein, proximal deep femoral vein, femoral vein, popliteal vein, posterior tibial veins and peroneal veins appear patent and compressible. IMPRESSION: NO EVIDENCE OF DEEP VENOUS THROMBOSIS IS IDENTIFIED.
[2017-10-23] MEDS ORDERED: Loperamide CAP* 2 MG PO PRN (15:37)
[2017-10-23] MEDS: Loperamide CAP* 2 MG PO PRN ×2 (17:04→21:15)
[2017-10-23] MEDS: Insulin GLARGINE(*) 1 UNITS UNIT SUBCUT SCH (18:32)
[2017-10-23] MEDS: Cholecalciferol TAB* 1000 UNITS PO SCH (18:32)
[2017-10-23] MEDS ORDERED: fentaNYL PATCH 12 MCG/HR TRANSDERM SCH (20:00)
[2017-10-23] MEDS ORDERED: fentaNYL PATCH 25 MCG/HR TRANSDERM SCH (20:00)
[2017-10-23] MEDS: Sertraline* 100 MG TAB PO SCH (21:04)
[2017-10-23] MEDS: Prazosin CAP* 1 MG PO SCH (21:04)
[2017-10-23] MEDS: Temazepam CAP* 15 MG PO SCH (21:05)
[2017-10-23] MEDS: traZODone TAB* 50 MG TAB PO SCH (21:05)
[2017-10-24] MEDS: Insulin LISPRO* 1 UNITS UNIT SUBCUT SCH ×4 (08:03→20:08)
[2017-10-24] MEDS: Omeprazole CAP* 20 MG PO SCH ×2 (08:37→16:39)
[2017-10-24] MEDS: Aspirin TAB* 325 MG PO SCH (08:37)
[2017-10-24] MEDS: Atorvastatin* 10 MG TAB PO SCH (08:38)
[2017-10-24] MEDS: Potassium Chlor TAB* 10 MEQ TAB.ER PO SCH ×2 (08:38→20:06)
[2017-10-24] MEDS: Azithromycin TAB* 250 MG PO SCH (08:38)
[2017-10-24] MEDS: Ferrous Sulfate TAB* 325 MG PO SCH (08:39)
[2017-10-24] MEDS: ceFUROXime TAB(*) 250 MG PO SCH ×2 (08:39→20:05)
[2017-10-24] MEDS: BuPROPion XL* 150 MG TAB.XL PO SCH (08:39)
[2017-10-24] MEDS: Docusate CAP* 100 MG PO SCH ×2 (08:39→20:06)
[2017-10-24] MEDS: metFORMIN* 1,000 MG TAB PO SCH ×2 (08:40→20:05)
[2017-10-24] MEDS: Hydrochlorothiazide TAB* 25 MG PO SCH (08:40)
[2017-10-24] MEDS: Lisinopril TAB* 5 MG PO SCH (08:40)
[2017-10-24] MEDS: Tamsulosin CAP* 0.4 MG PO SCH (08:41)
[2017-10-24] MEDS: Montelukast Sodium TAB* 10 MG PO SCH (08:41)
[2017-10-24] MEDS: CMCS:OMEGA-3 FATTY ACIDS (NF) 1,000 MG CAP PO SCH ×2 (08:41→20:06)
[2017-10-24] MEDS: THEOPHYLLINE TAB.SA* 200 MG PO SCH ×2 (08:41→20:04)
[2017-10-24] MEDS: Morphine ORAL.SOLN 10 mg* 2 MG/ML UDC 5 ml PO PRN ×2 (08:43→20:10)
[2017-10-24] MEDS: fentaNYL Patch Check Q Shift 1 NOTE SCH ×2 (09:30→18:13)
[2017-10-24] MEDS: Insulin GLARGINE(*) 1 UNITS UNIT SUBCUT SCH (18:11)
[2017-10-24] MEDS: Cholecalciferol TAB* 1000 UNITS PO SCH (18:11)
--- NOTE | 2017-10-24 18:54 | PN ---
Subjective - Subjective Date of Service: 10/24/17 Service Type: 07259 Hosp care 15 min low complexity Subjective: Denies any psychiatric problems. Says he said something stupid to get admitted to this place. However continues to have diarrhea. Walks with a walker and would like to go back to his own home when discharge. Overall minimizing his psychiatric issues. Objective - Appearance Appearance: Healthy Appearing Dysmorphic Features: No Hygiene: Normal Grooming: Fairly Well Kept - Behavior Psychomotor Activities: Normal Exhibits Abnormal Movement: No - Attitude and Relatedness Attitude and Relatedness: Superficially Cooperative Eye Contact: Fair - Speech Quality: Unpressured Latencies: Normal Quantity: Appropriate - Mood Patient's Decription of Mood: "Fine" - Affect Observed Affect: Non-labile - Thought Process Patient's Thought Process: Coherent, Goal Directed Thought Content: No Passive Wish, No Suicidal Planning, No Homicidal Ideation, No Paranoid Ideation - Sensorium Experiencing Hallucinations: No, Sensorium is Clear Type of Hallucinations: Visual: No, Auditory: No, Command: No - Level of Consciousness Level of Consciousness: Alert Orientation: Yes Intact, Yes Orientated to Time, Yes Orientated to Place, Yes Orientated to Person - Impulse Control Impulse Control: Intact - Insight and Judgement Insight and Judgement: Poor - Group Participation Particating in Group Activities: No - Medication Management Medication Management Adherence: Yes Assessment - Assessment Merits Inpatient Hospitalization: For Immediate Safety, For Stabilization, For Discharge Planning, Pending Safe DC Plan Plan - Plan Treatment Plan: Name: SALMA RIVAS Birthdate: 1950 [id number] Continued Medication Management: Continue Outpt Medication Medications: Current Medications Acetaminophen (Tylenol Tab*) 650 mg PO Q4H PRN PRN Reason: for pain; or Temp >101 F Last Admin: 10/22/17 17:16 Dose: 650 mg Al Hydrox/Mg Hydrox/Simethicone (Maalox Plus*) 30 ml PO Q4H PRN PRN Reason: INDIGESTION Aspirin (Aspirin Tab*) 325 mg PO DAILY [facility] Last Admin: 10/24/17 08:37 Dose: 325 mg Atorvastatin Calcium (Lipitor*) 10 mg PO DAILY [facility] Last Admin: 10/24/17 08:38 Dose: 10 mg Azithromycin (Zithromax Tab*) 250 mg PO DAILY [facility] Last Admin: 10/24/17 08:38 Dose: 250 mg Bupropion HCl (Wellbutrin Xl *) 150 mg PO DAILY [facility] Last Admin: 10/24/17 08:39 Dose: 150 mg Cefuroxime Axetil (Ceftin Tab(*)) 500 mg PO BID [facility] Last Admin: 10/24/17 08:39 Dose: 500 mg Cholecalciferol (Vitamin D Tab*) 1,000 units PO QPM [facility] Last Admin: 10/24/17 18:11 Dose: 1,000 units Dextrose (D50w Syringe 50 Ml*) 12.5 gm IV PUSH .FOR FS < 60 - SS PRN PRN Reason: FS < 60 Docusate Sodium (Colace Cap*) 100 mg PO BID [facility] Last Admin: 10/24/17 08:39 Dose: 100 mg Fentanyl (Duragesic Patch 12 Mcg/Hr *) 12 mcg TRANSDERM Q3D@1999 [facility] Last Admin: 10/23/17 21:12 Dose: 12 mcg Fentanyl (Duragesic Patch 25 Mcg/Hr*) 25 mcg TRANSDERM Q3D@1999 [facility] Last Admin: 10/23/17 21:08 Dose: 25 mcg Ferrous Sulfate (Ferrous Sulfate Tab*) 325 mg PO DAILY [facility] Last Admin: 10/24/17 08:39 Dose: 325 mg Fish Oil (Fish Oil (Nf)) 1,000 mg PO BID [facility]; Protocol Last Admin: 10/24/17 08:41 Dose: 1,000 mg Hydrochlorothiazide (Hydrodiuril Tab*) 25 mg PO DAILY [facility] Last Admin: 10/24/17 08:40 Dose: 25 mg Insulin Glargine (Lantus(*)) 38 units SUBCUT QPM [facility] Last Admin: 10/24/17 18:11 Dose: 38 units Insulin Human Lispro (Humalog*) 0 units SUBCUT ACHS [facility]; Protocol Last Admin: 10/24/17 16:38 Dose: Not Given Lisinopril (Prinivil Tab*) 5 mg PO DAILY [facility] Last Admin: 10/24/17 08:40 Dose: 5 mg Loperamide HCl (Imodium Cap*) 4 mg PO ONCE PRN PRN Reason: 1ST LOOSE STOOL Loperamide HCl (Imodium Cap*) 2 mg PO .AFTER EACH LOOSE BM PRN PRN Reason: LOOSE STOOL Last Admin: 10/23/17 21:15 Dose: 2 mg Metformin HCl (Glucophage*) 1,000 mg PO BID [facility] Last Admin: 10/24/17 08:40 Dose: 1,000 mg Montelukast Sodium (Singulair Tab*) 10 mg PO DAILY [facility] Last Admin: 10/24/17 08:41 Dose: 10 mg Morphine Sulfate (Morphine Oral.Soln 10 Mg*) 15 mg PO Q4H PRN PRN Reason: PAIN Last Admin: 10/24/17 08:43 Dose: 15 mg Nitroglycerin (Nitroglycerin Tab 0.4 Mg*) 0.4 mg SL Q5M PRN PRN Reason: CHEST PAIN Omeprazole (Prilosec Cap*) 20 mg PO 0730,1630 [facility] Last Admin: 10/24/17 16:39 Dose: 20 mg Pharmacy Profile Note (Fentanyl Patch Check Q Shift) 1 note N/A 0700,1900 [facility] Last Admin: 10/24/17 18:13 Dose: 1 note Potassium Chloride (Klor Con Er Tab*) 10 meq PO BID [facility] Last Admin: 10/24/17 08:38 Dose: 10 meq Prazosin HCl (Minipress Cap*) 4 mg PO BEDTIME [facility] Last Admin: 10/23/17 21:04 Dose: 4 mg Sertraline HCl (Zoloft*) 200 mg PO BEDTIME [facility] Last Admin: 10/23/17 21:04 Dose: 200 mg Tamsulosin HCl (Flomax Cap*) 0.4 mg PO DAILY [facility] Last Admin: 10/24/17 08:41 Dose: 0.4 mg Temazepam (Restoril Cap*) 30 mg PO BEDTIME [facility] Last Admin: 10/23/17 21:05 Dose: 30 mg Theophylline (Dheeraj Dur*) 400 mg PO BID [facility] Last Admin: 10/24/17 08:41 Dose: 400 mg Trazodone HCl (Desyrel Tab*) 50 mg PO BEDTIME [facility] Last Admin: 10/23/17 21:05 Dose: 50 mg - Discharge Plan Discharge Plan: Outpatient Follow Up Outpatient Program: [place] [facility].
[2017-10-24] MEDS ORDERED: fentaNYL PATCH 12 MCG/HR TRANSDERM SCH (20:00)
[2017-10-24] MEDS ORDERED: fentaNYL PATCH 25 MCG/HR TRANSDERM SCH (20:00)
[2017-10-24] MEDS: Prazosin CAP* 1 MG PO SCH (20:05)
[2017-10-24] MEDS: Temazepam CAP* 15 MG PO SCH (20:05)
[2017-10-24] MEDS: traZODone TAB* 50 MG TAB PO SCH (20:06)
[2017-10-24] MEDS: Sertraline* 100 MG TAB PO SCH (20:06)
[2017-10-25] MEDS: Insulin LISPRO* 1 UNITS UNIT SUBCUT SCH ×4 (07:40→21:59)
[2017-10-25] MEDS: Tamsulosin CAP* 0.4 MG PO SCH (09:25)
[2017-10-25] MEDS: BuPROPion XL* 150 MG TAB.XL PO SCH (09:25)
[2017-10-25] MEDS: CMCS:OMEGA-3 FATTY ACIDS (NF) 1,000 MG CAP PO SCH ×2 (09:25→22:09)
[2017-10-25] MEDS: Aspirin TAB* 325 MG PO SCH (09:25)
[2017-10-25] MEDS: Azithromycin TAB* 250 MG PO SCH (09:25)
[2017-10-25] MEDS: ceFUROXime TAB(*) 250 MG PO SCH ×2 (09:25→22:08)
[2017-10-25] MEDS: THEOPHYLLINE TAB.SA* 200 MG PO SCH ×2 (09:25→22:13)
[2017-10-25] MEDS: Lisinopril TAB* 5 MG PO SCH (09:26)
[2017-10-25] MEDS: metFORMIN* 1,000 MG TAB PO SCH ×2 (09:26→22:09)
[2017-10-25] MEDS: Omeprazole CAP* 20 MG PO SCH ×2 (09:26→17:08)
[2017-10-25] MEDS: Potassium Chlor TAB* 10 MEQ TAB.ER PO SCH ×2 (09:26→22:10)
[2017-10-25] MEDS: Docusate CAP* 100 MG PO SCH ×2 (09:26→22:09)
[2017-10-25] MEDS: Montelukast Sodium TAB* 10 MG PO SCH (09:26)
[2017-10-25] MEDS: Hydrochlorothiazide TAB* 25 MG PO SCH (09:26)
[2017-10-25] MEDS: Atorvastatin* 10 MG TAB PO SCH (09:26)
[2017-10-25] MEDS: Ferrous Sulfate TAB* 325 MG PO SCH (09:26)
[2017-10-25] MEDS: Morphine ORAL.SOLN 10 mg* 2 MG/ML UDC 5 ml PO PRN ×2 (09:37→22:27)
[2017-10-25] MEDS: fentaNYL Patch Check Q Shift 1 NOTE SCH ×2 (10:13→17:50)
--- NOTE | 2017-10-25 16:26 | PN ---
Subjective - Subjective Service Type: 65444 Hosp care 25 min moderate complexity Subjective: Patient lying on bed with angry affect upon approach. He begrudgingly agrees to meet with teletypewriter operator and Krista Vyas LMSW. Patient states he is "frustrated" due to being admitted here and due to the lunch time visit from her daughter, Kanwal and her , Laurent. He states he tried to explain that he "made a mistake" in regards to suicidal statement and that he is not a danger to himself or others. Patient initially states that he will not go to a therapist after discharge but later agrees when providers explain the purpose of talk therapy (versus re-telling traumatic events). He states he would like to talk to Kanwal and Laurent about feeling overly controlled by them. 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 He states intent to be less reclusive. He states he is able to care for himself, his house, the grandkids. Objective - Appearance Appearance: Well Developed/Nourished Dysmorphic Features: No Hygiene: Normal Grooming: Well Kept - Behavior Psychomotor Activities: Normal Exhibits Abnormal Movement: No - Attitude and Relatedness Attitude and Relatedness: improved as conversation continues Eye Contact: Good - Speech Quality: Unpressured Latencies: Normal Quantity: Appropriate - Mood Patient's Decription of Mood: "frustrated" - Affect Observed Affect: Fair Affect Consistent with: Euthymia - Thought Process Patient's Thought Process: Coherent, Circumstantial Thought Content: No Passive Wish, No Suicidal Planning, No Homicidal Ideation, No Paranoid Ideation - Sensorium Experiencing Hallucinations: No, Sensorium is Clear Type of Hallucinations: Visual: No, Auditory: No, Command: No - Level of Consciousness Level of Consciousness: Alert Orientation: Yes Intact, Yes Orientated to Time, Yes Orientated to Place, Yes Orientated to Person - Impulse Control Impulse Control: Intact - Insight and Judgement Insight and Judgement: Fair - Group Participation Particating in Group Activities: Yes - Medication Management Medication Management Adherence: Yes Assessment - Assessment Merits Inpatient Hospitalization: For Immediate Safety, For Stabilization, Consolidate Improvements Inpatient DSM-V Dx: F43.12 Clinical Impression: 67yo white male, , domiciled, [place] who was admitted to [facility] after medical floor hospitalization. He lives in a small house on the property of his daughter, who is concerned about depressive state and inability to care for himself. Patient minimizes psychiatric issues. He merits hospitalization for immediate safety and stabilization. Plan - Plan Treatment Plan: Name: SALMA RIVAS Birthdate: 1950 [id number] continue acute intensive psychiatric treatment. continue current medications and observation status. family meeting scheduled for 10/26/17 with potential discharge following. Continued Medication Management: Different Medication Medications: Current Medications Acetaminophen (Tylenol Tab*) 650 mg PO Q4H PRN PRN Reason: for pain; or Temp >101 F Last Admin: 10/22/17 17:16 Dose: 650 mg Al Hydrox/Mg Hydrox/Simethicone (Maalox Plus*) 30 ml PO Q4H PRN PRN Reason: INDIGESTION Aspirin (Aspirin Tab*) 325 mg PO DAILY [facility] Last Admin: 10/25/17 09:25 Dose: 325 mg Atorvastatin Calcium (Lipitor*) 10 mg PO DAILY [facility] Last Admin: 10/25/17 09:26 Dose: 10 mg Azithromycin (Zithromax Tab*) 250 mg PO DAILY [facility] Last Admin: 10/25/17 09:25 Dose: 250 mg Bupropion HCl (Wellbutrin Xl *) 150 mg PO DAILY [facility] Last Admin: 10/25/17 09:25 Dose: 150 mg Cefuroxime Axetil (Ceftin Tab(*)) 500 mg PO BID [facility] Last Admin: 10/25/17 09:25 Dose: 500 mg Cholecalciferol (Vitamin D Tab*) 1,000 units PO QPM [facility] Last Admin: 10/24/17 18:11 Dose: 1,000 units Dextrose (D50w Syringe 50 Ml*) 12.5 gm IV PUSH .FOR FS < 60 - SS PRN PRN Reason: FS < 60 Docusate Sodium (Colace Cap*) 100 mg PO BID [facility] Last Admin: 10/25/17 09:26 Dose: 100 mg Fentanyl (Duragesic Patch 12 Mcg/Hr *) 12 mcg TRANSDERM Q3D@1999 [facility] Last Admin: 10/23/17 21:12 Dose: 12 mcg Fentanyl (Duragesic Patch 25 Mcg/Hr*) 25 mcg TRANSDERM Q3D@1999 [facility] Last Admin: 10/23/17 21:08 Dose: 25 mcg Ferrous Sulfate (Ferrous Sulfate Tab*) 325 mg PO DAILY [facility] Last Admin: 10/25/17 09:26 Dose: 325 mg Fish Oil (Fish Oil (Nf)) 1,000 mg PO BID [facility]; Protocol Last Admin: 10/25/17 09:25 Dose: 1,000 mg Hydrochlorothiazide (Hydrodiuril Tab*) 25 mg PO DAILY [facility] Last Admin: 10/25/17 09:26 Dose: 25 mg Insulin Glargine (Lantus(*)) 38 units SUBCUT QPM [facility] Last Admin: 10/24/17 18:11 Dose: 38 units Insulin Human Lispro (Humalog*) 0 units SUBCUT ACHS [facility]; Protocol Last Admin: 10/25/17 12:06 Dose: 1 unit Lisinopril (Prinivil Tab*) 5 mg PO DAILY [facility] Last Admin: 10/25/17 09:26 Dose: 5 mg Loperamide HCl (Imodium Cap*) 4 mg PO ONCE PRN PRN Reason: 1ST LOOSE STOOL Loperamide HCl (Imodium Cap*) 2 mg PO .AFTER EACH LOOSE BM PRN PRN Reason: LOOSE STOOL Last Admin: 10/23/17 21:15 Dose: 2 mg Metformin HCl (Glucophage*) 1,000 mg PO BID [facility] Last Admin: 10/25/17 09:26 Dose: 1,000 mg Montelukast Sodium (Singulair Tab*) 10 mg PO DAILY [facility] Last Admin: 10/25/17 09:26 Dose: 10 mg Morphine Sulfate (Morphine Oral.Soln 10 Mg*) 15 mg PO Q4H PRN PRN Reason: PAIN Last Admin: 10/25/17 09:37 Dose: 15 mg Nitroglycerin (Nitroglycerin Tab 0.4 Mg*) 0.4 mg SL Q5M PRN PRN Reason: CHEST PAIN Omeprazole (Prilosec Cap*) 20 mg PO 0730,1630 [facility] Last Admin: 10/25/17 09:26 Dose: 20 mg Pharmacy Profile Note (Fentanyl Patch Check Q Shift) 1 note N/A 0700,1900 [facility] Last Admin: 10/25/17 10:13 Dose: 1 note Potassium Chloride (Klor Con Er Tab*) 10 meq PO BID [facility] Last Admin: 10/25/17 09:26 Dose: 10 meq Prazosin HCl (Minipress Cap*) 4 mg PO BEDTIME [facility] Last Admin: 10/24/17 20:05 Dose: 4 mg Sertraline HCl (Zoloft*) 200 mg PO BEDTIME [facility] Last Admin: 10/24/17 20:06 Dose: 200 mg Tamsulosin HCl (Flomax Cap*) 0.4 mg PO DAILY [facility] Last Admin: 10/25/17 09:25 Dose: 0.4 mg Temazepam (Restoril Cap*) 30 mg PO BEDTIME [facility] Last Admin: 10/24/17 20:05 Dose: 30 mg Theophylline (Dheeraj Dur*) 400 mg PO BID [facility] Last Admin: 10/25/17 09:25 Dose: 400 mg Trazodone HCl (Desyrel Tab*) 50 mg PO BEDTIME [facility] Last Admin: 10/24/17 20:06 Dose: 50 mg - Discharge Plan Discharge Plan: Outpatient Follow Up Outpatient Program: [facility]
[2017-10-25] MEDS: Cholecalciferol TAB* 1000 UNITS PO SCH (17:08)
[2017-10-25] MEDS: Insulin GLARGINE(*) 1 UNITS UNIT SUBCUT SCH (17:46)
[2017-10-25] MEDS: Prazosin CAP* 1 MG PO SCH (22:11)
[2017-10-25] MEDS: Sertraline* 100 MG TAB PO SCH (22:12)
[2017-10-25] MEDS: Temazepam CAP* 15 MG PO SCH (22:12)
[2017-10-25] MEDS: traZODone TAB* 50 MG TAB PO SCH (22:13)
[2017-10-26] MEDS: Insulin LISPRO* 1 UNITS UNIT SUBCUT SCH ×2 (08:18→11:47)
[2017-10-26 08:21] VITALS: BP 154/67
[2017-10-26] MEDS: Atorvastatin* 10 MG TAB PO SCH (08:43)
[2017-10-26] MEDS: Hydrochlorothiazide TAB* 25 MG PO SCH (08:43)
[2017-10-26] MEDS: Ferrous Sulfate TAB* 325 MG PO SCH (08:43)
[2017-10-26] MEDS: Lisinopril TAB* 5 MG PO SCH (08:43)
[2017-10-26] MEDS: Azithromycin TAB* 250 MG PO SCH (08:43)
[2017-10-26] MEDS: Potassium Chlor TAB* 10 MEQ TAB.ER PO SCH (08:43)
[2017-10-26] MEDS: Aspirin TAB* 325 MG PO SCH (08:43)
[2017-10-26] MEDS: metFORMIN* 1,000 MG TAB PO SCH (08:43)
[2017-10-26] MEDS: Omeprazole CAP* 20 MG PO SCH (08:44)
[2017-10-26] MEDS: ceFUROXime TAB(*) 250 MG PO SCH (08:44)
[2017-10-26] MEDS: Tamsulosin CAP* 0.4 MG PO SCH (08:44)
[2017-10-26] MEDS: BuPROPion XL* 150 MG TAB.XL PO SCH (08:44)
[2017-10-26] MEDS: CMCS:OMEGA-3 FATTY ACIDS (NF) 1,000 MG CAP PO SCH (08:44)
[2017-10-26] MEDS: Docusate CAP* 100 MG PO SCH (08:44)
[2017-10-26] MEDS: Montelukast Sodium TAB* 10 MG PO SCH (08:44)
[2017-10-26] MEDS: THEOPHYLLINE TAB.SA* 200 MG PO SCH (08:44)
[2017-10-26] MEDS: Morphine ORAL.SOLN 10 mg* 2 MG/ML UDC 5 ml PO PRN (08:48)
[2017-10-26] MEDS: fentaNYL Patch Check Q Shift 1 NOTE SCH (09:00)
--- NOTE | 2017-10-26 13:50 | PN ---
[facility]: Group Therapy Note - Service Type Service Type: [id number] Group Psychotherapy - Cognitive Behavioral Group Therapy ( CBT):Patient was attentive and participatory in CBT programming this morning, and remained in good behavioral control. Patient expressed positive insights regarding relevant treatment interventions and goals.
== END 2017-10-26 14:50 | disposition home or self-care (01) | DRG 882 ==
LOC: BSU 18:06
PROVIDERS: ADMIT Psychiatry & Neurology Psychiatry; ATTEND Psychiatry & Neurology Psychiatry
PROC: GZHZZZZ Group Psychotherapy (ICD-10-PCS; principal; 2017-10-26)
DX: F43.12 Post-traumatic stress disorder, chronic (principal); F33.2 Major depressive disorder, recurrent severe without psychotic features; R45.851 Suicidal ideations; G89.29 Other chronic pain; R48.0 Dyslexia and alexia; Z62.810 Personal history of physical and sexual abuse in childhood; E11.9 Type 2 diabetes mellitus without complications; I10 Essential (primary) hypertension; M54.9 Dorsalgia, unspecified; M25.519 Pain in unspecified shoulder; R33.9 Retention of urine, unspecified; N40.1 Benign prostatic hyperplasia with lower urinary tract symptoms; K21.9 Gastro-esophageal reflux disease without esophagitis; J44.9 Chronic obstructive pulmonary disease, unspecified; Z98.42 Cataract extraction status, left eye; Z91.5 Personal history of self-harm; Z87.891 Personal history of nicotine dependence; Z87.01 Personal history of pneumonia (recurrent); Z98.41 Cataract extraction status, right eye
CPT/HCPCS: 36415; 80061; 83036; 99222; 99231; 99232; A9270-GY; G8978-GP-CI; G8979-GP-CI; G8980-GP-CI; G8987-GO-CI; G8988-GO-CI; G8989-GO-CI

== ENCOUNTER 2018-11-20 17:47 | Emergency (ER) | payer MEDICARE, OTHER ==
[2018-11-20] MEDS ORDERED: NS 0.9% 1000 ML** 1,000 ML IV ONE ×2 (19:04→22:06)
[2018-11-20 19:45] LABS: ABS Basophils 0.1 10^3/ul (0-0.2); ABS Eosinophils 0.2 10^3/ul (0-0.6); ABS Lymphocytes 2.5 10^3/ul (1.0-4.8); ABS Monocytes 0.7 10^3/ul (0-0.8); Hematocrit 44 % (42-52); Hemoglobin 15.3 g/dL (14.0-18.0); Lymphocyte % 29.3 %; Mean Corpuscular HGB Conc 35 g/dL (31-36); Mean Corpuscular Hemoglobin 31 pg (27-31); Mean Corpuscular Volume 89 fL (80-94); Mean Platelet Volume 7.6 fL (7.4-10.4); Platelet Count 243 10^3/uL (150-450); Red Blood Count 4.97 10^6 /uL (4.18-5.48); Red Cell Distribution Width 14 % (10-15); White Blood Count 8.4 10^3/uL (3.5-10.8)
[2018-11-20 20:02] LABS: Albumin 4.4 g/dL (3.2-5.2); Albumin/Globulin Ratio 1.6 (1-3); BUN/Creatinine Ratio 20.4 (8-20); C Reactive Protein 1.03 mg/L (<8.01); Calcium 9.2 mg/dL (8.6-10.3); EGFR African American 81.8 (>60); EGFR Non-African American 67.6 (>60); Globulin 2.7 g/dL (2-4); Total Bilirubin 0.5 mg/dL (0.2-1.0); Total Protein 7.1 g/dL (6.4-8.9)
[2018-11-20] MEDS ORDERED: Iodixanol* (CONTRAST) 320 MG/ML 100 ML SDV IV ONE (20:23)
--- NOTE | 2018-11-20 21:19 | ED ---
Nausea/Vomiting/Diarrhea HPI - HPI Summary HPI Summary: Patient complains of nausea and vomiting and diarrhea, persistent left side pain , intermittent diffuse abdominal cramping, fatigue, CRANE 4 days. States diarrhea up to 4 times a day. Imodium is provided no relief. Intermittent occasional vomiting. Patient states he feels he is dehydrated. Also, states BGL was 600 yesterday. Patient states [facility] Denies recent course of antibiotics, recent contact exposure, recent hospitalization. Denies fever, neck stiffness, cough, sore throat, CP, SOB, change in urine. Medical history is DM, chronic pain, HTN, IBS, COPD. Abdominal surgical history is cholecystectomy. - History of Current Complaint Chief Complaint: EDNauseaVomitDiarrh Stated Complaint: DEHRYDATED FOR A WHILE, UNSTABLE, HIGH BLOOD SUGAR Time Seen by Provider: 11/20/18 19:00 Hx Obtained From: Patient Onset/Duration: Gradual Onset, Lasting Days Severity Currently: None Pain Intensity: 0 Pain Scale Used: 0-10 Numeric Location: Discrete At: LLQ Character: Cramping Aggravating Factor(s): Food Alleviating Factor(s): Vomiting Diarrhea Presence: Yes Diarrhea Frequency: Every 3-4 hours Diarrhea Characteristics: Watery - Allergies/Home Medications Allergies/Adverse Reactions: Allergies Allergy/AdvReac Type Severity Reaction Status Date / Time ciprofloxacin [From Cipro] Allergy rash, Verified 11/11/18 10:22 itching cyclobenzaprine Allergy Swelling Verified 11/11/18 10:22 Of Face,Lips,& Throat procaine [From Novocain] Allergy rash, Verified 11/11/18 10:22 itching PMH/Surg Hx/FS Hx/Imm Hx Endocrine/Hematology History: Reports: Hx Diabetes Denies: Hx Systemic Lupus Erythematosus Cardiovascular History: Reports: Hx Angina, Hx Deep Vein Thrombosis, Hx Hypercholesterolemia, Hx Hypotension, Hx Hypertension, Other Cardiovascular Problems/Disorders - Stress test performed Denies: Hx Congestive Heart Failure, Hx Pacemaker/ICD Respiratory History: Reports: Hx Asthma, Hx Chronic Obstructive Pulmonary Disease (COPD), Hx Pneumonia, Hx Sleep Apnea - CPAP, Other Respiratory Problems/ Disorders - COPD, SOB GI History: Reports: Hx Gastroesophageal Reflux Disease, Other GI Disorders - 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 History: Reports: Hx Benign Prostatic Hyperplasia - TURP, Other Problems/ Disorders - Straight cathing at home Denies: Hx Dialysis, Hx Renal Disease Musculoskeletal History: Reports: Hx Arthritis, Hx Back Problems, Hx Orthopedic Injury - Torn Right Rotator Cuff June 2014 Denies: Hx Rheumatoid Arthritis Sensory History: Reports: Hx Cataracts - ASHLY, Hx Contacts or Glasses, Hx Hearing Aid, Hx Hearing Problem Opthamlomology History: Reports: Hx Cataracts - ASHLY, Hx Contacts or Glasses Neurological History: Denies: Hx Dementia, Hx Seizures, Other Neuro Impairments/Disorders Psychiatric History: Reports: Hx Anxiety, Hx Depression, Hx Post Traumatic Stress Disorder - recently completed 4 month PTSD program., Hx Suicide Attempt Denies: Hx Panic Disorder - Cancer History Cancer Type, Location and Year: bladder Hx Chemotherapy: No - Surgical History Surgery Procedure, Year, and Place: Cataract Surgery at [facility] [place], CHOLECYSTECTOMY 12/17/15. EARLY CSP FUSION. CSP LAMINECTOMYS. THORACIC OUTLET SURGERY [facility]. TENS UNIT X2. MORPHINE PUMPS IMPLANTED AND REMOVED. Left Knee replacement 01/2016. Shoulder surgery 06/2015. Total tooth extraction 2014 and dentures Hx Anesthesia Reactions: No - Immunization History Date of Tetanus Vaccine: 04/23/06 Infectious Disease History: No Infectious Disease History: Denies: Traveled Outside the [place] in Last 30 Days - Family History Known Family History: Positive: Diabetes - Social History Alcohol Use: None Substance Use Type: Reports: None Substance Use Comment - Amount & Last Used: Previous hx. Went to rehab [address] [place] [address] Smoking Status (MU): Former Smoker Type: Cigarettes Amount Used/How Often: Pt has not used any tobacco products in last 30 days. Have You Smoked in the Last Year: No Review of Systems Constitutional: Negative Eyes: Negative ENT: Negative Cardiovascular: Negative Respiratory: Negative Positive: Abdominal Pain, Vomiting, Diarrhea, Nausea Genitourinary: Negative Musculoskeletal: Negative Skin: Negative Positive: Headache Psychological: Normal All Other Systems Reviewed And Are Negative: Yes Physical Exam - Summary Physical Exam Summary: Tenderness left lower quadrant. Abdominal exam otherwise unremarkable. Triage Information Reviewed: Yes Vital Signs On Initial Exam: Initial Vitals Temp Pulse Resp BP Pulse Ox 97.5 F 91 20 130/91 97 11/20/18 17:49 11/20/18 17:49 11/20/18 17:49 11/20/18 17:49 11/20/18 17:49 Vital Signs Reviewed: Yes Appearance: Positive: Well-Appearing Skin: Positive: Warm Head/Face: Positive: Normal Head/Face Inspection Eyes: Positive: Normal Neck: Positive: Supple Respiratory/Lung Sounds: Positive: Clear to Auscultation Cardiovascular: Positive: Normal Abdomen Description: Positive: Other: Musculoskeletal: Positive: Normal Neurological: Positive: Normal Psychiatric: Positive: Normal AVPU Assessment: Alert - Ingram Coma Scale Best Eye Response: 4 - Spontaneous Best Motor Response: 6 - Obeys Commands Best Verbal Response: 5 - Oriented Coma Scale Total: 15 Diagnostics - Vital Signs Vital Signs Temp Pulse Resp BP Pulse Ox 11/20/18 21:08 97.5 F 63 18 176/83 99 11/20/18 17:49 97.5 F 91 20 130/91 97 - Laboratory Lab Results: Lab Results 11/20/18 11/20/18 Range/Units 19:35 19:35 WBC 8.4 (3.5-10.8) 10^3/uL RBC 4.97 (4.18-5.48) 10^6 /uL Hgb 15.3 (14.0-18.0) g/dL Hct 44 (42-52) % MCV 89 (80-94) fL MCH 31 (27-31) pg MCHC 35 (31-36) g/dL RDW 14 (10-15) % Plt Count 243 (150-450) 10^3/uL MPV 7.6 (7.4-10.4) fL Neut % (Auto) 59.6 % Lymph % (Auto) 29.3 % [place] % (Auto) 8.1 % Eos % (Auto) 2.0 % Baso % (Auto) 1.0 % Absolute Neuts (auto) 5.0 (1.5-7.7) 10^3/ul Absolute Lymphs (auto) 2.5 (1.0-4.8) 10^3/ul Absolute Monos (auto) 0.7 (0-0.8) 10^3/ul Absolute Eos (auto) 0.2 (0-0.6) 10^3/ul Absolute Basos (auto) 0.1 (0-0.2) 10^3/ul Absolute Nucleated RBC 0.0 10^3/ul Nucleated RBC % 0.0 Sodium 135 (135-145) mmol/L Potassium 5.0 (3.5-5.0) mmol/L Chloride 98 L (101-111) mmol/L Carbon Dioxide 27 (22-32) mmol/L Anion Gap 10 (2-11) mmol/L BUN 22 (6-24) mg/dL Creatinine 1.08 (0.67-1.17) mg/dL Est GFR ( Amer) 81.8 (>60) Est GFR (Non-Af Amer) 67.6 (>60) BUN/Creatinine Ratio 20.4 H (8-20) Glucose 100 (70-100) mg/dL Calcium 9.2 (8.6-10.3) mg/dL Total Bilirubin 0.50 (0.2-1.0) mg/dL AST 14 (13-39) U/L ALT 15 (7-52) U/L Alkaline Phosphatase 53 (34-104) U/L C-Reactive Protein 1.03 (<8.01) mg/L Total Protein 7.1 (6.4-8.9) g/dL Albumin 4.4 (3.2-5.2) g/dL Globulin 2.7 (2-4) g/dL Albumin/Globulin Ratio 1.6 (1-3) Result Diagrams: 11/20/18 19:35 11/20/18 19:35 Lab Statement: Any lab studies that have been ordered have been reviewed, and results considered in the medical decision making process. Naus/Vom/Diarrhea Course/Dx - Course Course Of Treatment: Patient complains of nausea and vomiting and diarrhea, persistent left side pain, intermittent diffuse abdominal cramping, fatigue, CRANE 4 days. States diarrhea up to 4 times a day. Imodium is provided no relief. Intermittent occasional vomiting. Patient states he feels he is dehydrated. Also, states BGL was 600 yesterday. Patient states [facility] Denies recent course of antibiotics, recent contact exposure, recent hospitalization. Denies fever, neck stiffness, cough, sore throat, CP, SOB, change in urine. Medical history is DM, chronic pain, HTN, IBS, COPD. Abdominal surgical history is cholecystectomy. Vital signs within normal limits. Labs unremarkable. Patient states he is feeling much better after 1 L normal saline, still complains of persistent left side pain, but states she has had that for years and it is no worse than usual. Patient states he wants to go home. CT abdomen and pelvis results still pending. Patient states he will provide PCP with urine tomorrow. Patient could not provide stool sample here in ED. Patient refused antinausea medication. Patient will be contacted with results of CT abdomen and pelvis and patient will return if warranted. Patient and son understand and approve plan. Patient called at 10:54 PM to be advised CT abdomen and pelvis results were normal. Patient and son-in-law Laurent Borrero answered phone and acknowledged results. - Differential Dx/Diagnosis Provider Diagnosis: Nausea vomiting and diarrhea, Abdominal pain Condition At Discharge: Stable Discharge - Sign-Out/Discharge Documenting (check all that apply): Patient Departure Patient Received Moderate/Deep Sedation with Procedure: No - Discharge Plan Condition: Stable Disposition: HOME Patient Education Materials: Acute Nausea and Vomiting (ED), Acute Diarrhea (ED ), Abdominal Pain (ED) Referrals: Deepthi Jacobs MD [Primary Care Provider] - Additional Instructions: Drink plenty of fluids to maintain hydration. Return to the ED for any new or worsening symptoms. - Billing Disposition and Condition Condition: STABLE Disposition: Home
[2018-11-20 22:35] VITALS: BP 180/105
== END 2018-11-20 22:33 | disposition home or self-care (01) ==
LOC: ED 17:47
DX: R11.2 Nausea with vomiting, unspecified (principal); R19.7 Diarrhea, unspecified; R10.32 Left lower quadrant pain; R53.83 Other fatigue; R51 Headache; R91.1 Solitary pulmonary nodule; E11.9 Type 2 diabetes mellitus without complications; Z79.4 Long term (current) use of insulin; Z79.84 Long term (current) use of oral hypoglycemic drugs; E78.00 Pure hypercholesterolemia, unspecified; I10 Essential (primary) hypertension; J44.9 Chronic obstructive pulmonary disease, unspecified; K21.9 Gastro-esophageal reflux disease without esophagitis; N40.0 Benign prostatic hyperplasia without lower urinary tract symptoms; K58.9 Irritable bowel syndrome, unspecified; G89.29 Other chronic pain; F41.9 Anxiety disorder, unspecified; F32.9 Major depressive disorder, single episode, unspecified; Z90.49 Acquired absence of other specified parts of digestive tract; Z96.652 Presence of left artificial knee joint; Z90.79 Acquired absence of other genital organ(s); Z88.4 Allergy status to anesthetic agent; Z88.1 Allergy status to other antibiotic agents; Z88.8 Allergy status to other drugs, medicaments and biological substances; Z87.891 Personal history of nicotine dependence
CPT/HCPCS: 36415; 74177; 80053; 85025; 86140; 96360; 99282; Q9967

== ENCOUNTER → 2018-11-21 17:06 | Emergency (ER) | payer MEDICARE ==
[2018-11-21 19:12] VITALS: BP 192/90
== END | disposition left against medical advice (07) ==
LOC: ED 17:06
DX: Z53.21 Procedure and treatment not carried out due to patient leaving prior to being seen by health care provider (principal)
CPT/HCPCS: 99282

== ENCOUNTER 2019-04-15 20:09 | Emergency (ER) | payer MEDICARE, OTHER ==
--- NOTE | 2019-04-15 20:27 | ED ---
Respiratory - HPI Summary HPI Summary: This patient is a 68 year old male with a Hx of COPD presenting to [facility] with a respiratory complaint. The patient has been dealing with a URI for the last 10 days and was seen by [facility], who prescribed him ABx and steroids. He states he has ran out of medicine and is still sick. He describes his symptoms as SOB/sucking air through a straw, and nasal congestion. He reports chest pain he describes as tightness that he believes has been caused by excessive coughing. He states the medications he was prescribed was doxycycline and prednisone. - History of Current Complaint Chief Complaint: EDUpperRespComplaint Stated Complaint: DIFFICULTY BREATHING/CONGESTION PER PT Time Seen by Provider: 04/15/19 20:19 Hx Obtained From: Patient Onset/Duration: Lasting Days Pain Intensity: 5 - Allergy/Home Medications Allergies/Adverse Reactions: Allergies Allergy/AdvReac Type Severity Reaction Status Date / Time ciprofloxacin [From Cipro] Allergy rash, Verified 03/15/19 13:46 itching cyclobenzaprine Allergy Swelling Verified 03/15/19 13:46 Of Face,Lips,& Throat procaine [From Novocain] Allergy rash, Verified 03/15/19 13:46 itching Home Medications: Home Medications Bupropion XL* [Wellbutrin XL *] 300 mg PO DAILY 04/15/19 [History Confirmed ] Cyanocobalamin (Vitamin B-12) [B-12] 1,000 mcg PO DAILY 04/15/19 [History Confirmed 04/15/19] Lactobacillus Acidophilus [Freeze Dried Acidophilus] 1 cap PO DAILY 04/15/19 [ History Confirmed 04/15/19] Magnesium Oxide [Magnesium] 200 mg PO DAILY 04/15/19 [History Confirmed 04/15/19 ] PMH/Surg Hx/FS Hx/Imm Hx Endocrine/Hematology History: Reports: Hx Diabetes Denies: Hx Systemic Lupus Erythematosus Cardiovascular History: Reports: Hx Angina, Hx Deep Vein Thrombosis, Hx Hypercholesterolemia, Hx Hypotension, Hx Hypertension, Other Cardiovascular Problems/Disorders - Stress test performed Denies: Hx Congestive Heart Failure, Hx Pacemaker/ICD Respiratory History: Reports: Hx Asthma, Hx Chronic Obstructive Pulmonary Disease (COPD), Hx Pneumonia, Hx Sleep Apnea - CPAP, Other Respiratory Problems/ Disorders - COPD, SOB GI History: Reports: Hx Gastroesophageal Reflux Disease, Other GI Disorders - 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 History: Reports: Hx Benign Prostatic Hyperplasia - TURP, Other Problems/ Disorders - Straight cathing at home Denies: Hx Dialysis, Hx Renal Disease Musculoskeletal History: Reports: Hx Arthritis, Hx Back Problems, Hx Orthopedic Injury - Torn Right Rotator Cuff June 2014 Denies: Hx Rheumatoid Arthritis Sensory History: Reports: Hx Cataracts - ASHLY, Hx Contacts or Glasses, Hx Hearing Aid, Hx Hearing Problem Opthamlomology History: Reports: Hx Cataracts - ASHLY, Hx Contacts or Glasses Neurological History: Denies: Hx Dementia, Hx Seizures, Other Neuro Impairments/Disorders Psychiatric History: Reports: Hx Anxiety, Hx Depression, Hx Post Traumatic Stress Disorder - recently completed 4 month PTSD program., Hx Suicide Attempt Denies: Hx Panic Disorder - Cancer History Cancer Type, Location and Year: bladder Hx Chemotherapy: No - Surgical History Surgery Procedure, Year, and Place: Cataract Surgery at [facility] [place] CHOLECYSTECTOMY 12/17/15. EARLY CSP FUSION. CSP LAMINECTOMYS. THORACIC OUTLET SURGERY [facility]. TENS UNIT X2. MORPHINE PUMPS IMPLANTED AND REMOVED. Left Knee replacement 01/2016. Shoulder surgery 06/2015. Total tooth extraction 2014 and dentures Hx Anesthesia Reactions: No - Immunization History Date of Tetanus Vaccine: 04/23/06 Infectious Disease History: No Infectious Disease History: Denies: Traveled Outside the [place] in Last 30 Days - Family History Known Family History: Positive: Diabetes - Social History Alcohol Use: None Substance Use Type: Reports: None Substance Use Comment - Amount & Last Used: Previous hx. Went to rehab [address] [place] [address] Smoking Status (MU): Former Smoker Type: Cigarettes Amount Used/How Often: Pt has not used any tobacco products in last 30 days. Have You Smoked in the Last Year: No Review of Systems Positive: Nasal Discharge Positive: Chest Pain Positive: Shortness Of Breath, Cough All Other Systems Reviewed And Are Negative: Yes Physical Exam - Summary Physical Exam Summary: Constitutional: Well-developed, Well-nourished, Alert. (-) Distressed Skin: Warm, Dry HENT: Normocephalic; Atraumatic. Nasal congestion. Eyes: Conjunctiva normal Neck: Musculoskeletal ROM normal neck. (-) JVD, (-) Stridor, (-) Tracheal deviation Cardio: Rhythm regular, rate normal, Heart sounds normal; Intact distal pulses; Radial pulses are 2+ and symmetric. (-) Murmur Pulmonary/Chest wall: Effort normal. (-) Respiratory distress, Faint Wheezes, (- ) Rales Abd: Soft, (-) tenderness, (-) Distension, (-) Guarding, (-) Rebound Musculoskeletal: (-) Edema. No lower extremity pain Lymph: (-) Cervical adenopathy Neuro: Alert, Oriented x3 Psych: Mood and affect Normal Triage Information Reviewed: Yes Vital Signs On Initial Exam: Initial Vitals Temp Pulse Resp BP Pulse Ox 97.1 F 68 22 188/93 99 04/15/19 20:14 04/15/19 20:14 04/15/19 20:14 04/15/19 20:14 04/15/19 20:14 Vital Signs Reviewed: Yes Procedures - Sedation Patient Received Moderate/Deep Sedation with Procedure: No Diagnostics - Vital Signs Vital Signs Temp Pulse Resp BP Pulse Ox 04/15/19 20:14 97.1 F 68 22 188/93 99 - Laboratory Result Diagrams: 04/15/19 20:38 04/15/19 20:38 Lab Statement: Any lab studies that have been ordered have been reviewed, and results considered in the medical decision making process. - Radiology CXR Radiology Interpretation Completed By: Radiologist Summary of Radiographic Findings: No acute disease. Pending official radiologist report. - EKG 2032 Cardiac Rate: Bradycardia - 59 BPM EKG Rhythm: Sinus Bradycardia Summary of EKG Findings: No ischemic changes. Dr. Marcano has reviewed and interpreted this EKG. Disposition - Course Course Of Treatment: This patient is a 68 year old male with a Hx of COPD presenting to [facility] with a respiratory complaint. Physical exam revealed faint wheezes. CXR was unremarkable. Labs were unremarkable for infection. Patient will be prescribed prednisone. Patient was able to ambulate around the ED, O2 sat 96-99 on room air. Plan for discharge was discussed with the patient and he was agreeable with this plan. - Diagnoses Provider Diagnoses: COPD (chronic obstructive pulmonary disease) Discharge ED - Sign-Out/Discharge Documenting (check all that apply): Patient Departure - Discharge - Discharge Plan Condition: Stable Disposition: HOME Prescriptions: predniSONE [Prednisone 20 MG TAB] 40 mg PO DAILY 4 Days #8 tablet Patient Education Materials: Dehydration (ED) Referrals: Deepthi Jacobs MD [Primary Care Provider] - 2 Days Additional Instructions: Return to ED with new or worsening symptoms. - Attestation Statements Document Initiated by Scribe: Yes Documenting Scribe: Matthew Gonzalez Provider For Whom Scribe is Documenting (Include Credential): Milind Marcano DO Scribe Attestation: IMatthew, scribed for Milind Marcano DO on 04/15/19 at 2122. Status of Scribe Document: Ready
[2019-04-15] MEDS ORDERED: NS 0.9% 1000 ML** 1,000 ML IV ONE (20:31)
[2019-04-15] MEDS ORDERED: Albuterol/Ipratropium NEB.SOL* Albuterol 2.5 MG/Ipratropium 0.5 MG 3 ML INH ONE (20:31)
[2019-04-15 20:51] LABS: ABS Basophils 0.1 10^3/ul (0-0.2); ABS Eosinophils 0.2 10^3/ul (0-0.6); ABS Lymphocytes 2.3 10^3/ul (1.0-4.8); ABS Monocytes 0.6 10^3/ul (0-0.8); ABS Neutrophils 3.8 10^3/ul (1.5-7.7); Eosinophil % 2.3 %; Hematocrit 40 % (42-52); Hemoglobin 13.8 g/dL (14.0-18.0); Lymphocyte % 32.9 %; Mean Corpuscular HGB Conc 35 g/dL (31-36); Mean Corpuscular Hemoglobin 31 pg (27-31); Mean Corpuscular Volume 90 fL (80-94); Mean Platelet Volume 6.9 fL (7.4-10.4); Nucleated Red Blood Cells % 0.1; Platelet Count 275 10^3/uL (150-450); Red Blood Count 4.46 10^6 /uL (4.18-5.48); Red Cell Distribution Width 14 % (10-15); White Blood Count 7.1 10^3/uL (3.5-10.8)
[2019-04-15 21:07] LABS: BUN/Creatinine Ratio 25.6 (8-20); Calcium 9.1 mg/dL (8.6-10.3); EGFR African American 74.6 (>60); EGFR Non-African American 61.6 (>60); Potassium 4.1 mmol/L (3.5-5.0)
[2019-04-15 21:11] LABS: Troponin I 0.01 ng/mL (<0.03)
[2019-04-15] MEDS ORDERED: predniSONE TAB* 20 MG PO ONE (21:12)
[2019-04-15 22:05] VITALS: BP 184/80
== END 2019-04-15 22:03 | disposition home or self-care (01) ==
LOC: ED 20:09
DX: J44.9 Chronic obstructive pulmonary disease, unspecified (principal); R00.1 Bradycardia, unspecified; E11.9 Type 2 diabetes mellitus without complications; Z79.84 Long term (current) use of oral hypoglycemic drugs; Z79.4 Long term (current) use of insulin; I10 Essential (primary) hypertension; K21.9 Gastro-esophageal reflux disease without esophagitis; F41.9 Anxiety disorder, unspecified; F32.9 Major depressive disorder, single episode, unspecified; Z88.4 Allergy status to anesthetic agent; Z79.82 Long term (current) use of aspirin; Z88.1 Allergy status to other antibiotic agents; Z88.8 Allergy status to other drugs, medicaments and biological substances; Z87.891 Personal history of nicotine dependence
CPT/HCPCS: 36415; 71046; 80048; 84484; 85025; 93005; 96360; 99284; A9270-GY; J7512

== ENCOUNTER 2019-04-28 20:35 | Emergency (ER) | payer MEDICARE ==
--- NOTE | 2019-04-28 21:24 | ED ---
Head Injury - HPI Summary HPI Summary: Patient is a 68 y/o M presenting to the ED for a chief complaint of head injury after a fall. Patient is present with his son. Patient states that he was on a 2 step ladder at his house when he lost his balance and fell. He landed on his left side, hitting the side of his head, left shoulder, and left arm. Patient admits a loss of consciousness. Patient was found by his family lying on his bed with a laceration to the left side of the head. His family brought the patient to [facility] to be assessed. Patient currently complains of left shoulder pain, left neck pain, and left shoulder numbness. The left neck pain and left shoulder numbness are chronic and at baseline. He denies any aggravating or alleviating factors. Per his son, patient has a history of being unsteady on his feet. Patient is not able to care for himself properly, and patient's family helps care for the patient. PMHx is significant for DM. PSHx is significant for left knee replacement. He denies taking blood thinners, but admits taking aspirin. Last tetanus vaccination was last year. - History Of Current Complaint Chief Complaint: EDHeadInjury Stated Complaint: FALL PER EMS Hx Obtained From: Patient Mechanism Of Injury: Fall From Height Of: - 2 step ladder Onset/Duration: Traumatic, Still Present Onset of Pain: Immediate Severity Currently: Moderate Severity Initially: Moderate Pain Intensity: 6 Pain Scale Used: 0-10 Numeric Location of Head Injury: Parietal Character: Unable to describe Aggravating Factor(s): Other: - Nothing Alleviating Factor(s): Other: - Nothing Associated Signs And Symptoms: LOC Duration Unknown, Neck Pain - Left, at baseline, Numbness - Left shoulder, at baseline - Allergies/Home Medications Allergies/Adverse Reactions: Allergies Allergy/AdvReac Type Severity Reaction Status Date / Time ciprofloxacin [From Cipro] Allergy rash, Verified 03/15/19 13:46 itching cyclobenzaprine Allergy Swelling Verified 03/15/19 13:46 Of Face,Lips,& Throat procaine [From Novocain] Allergy rash, Verified 03/15/19 13:46 itching PMH/Surg Hx/FS Hx/Imm Hx Previously Healthy: Yes Endocrine/Hematology History: Reports: Hx Diabetes Denies: Hx Systemic Lupus Erythematosus Cardiovascular History: Reports: Hx Angina, Hx Deep Vein Thrombosis, Hx Hypercholesterolemia, Hx Hypotension, Hx Hypertension, Other Cardiovascular Problems/Disorders - Stress test performed Denies: Hx Congestive Heart Failure, Hx Pacemaker/ICD Respiratory History: Reports: Hx Asthma, Hx Chronic Obstructive Pulmonary Disease (COPD), Hx Pneumonia, Hx Sleep Apnea - CPAP, Other Respiratory Problems/ Disorders - COPD, SOB GI History: Reports: Hx Gastroesophageal Reflux Disease, Other GI Disorders - 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 History: Reports: Hx Benign Prostatic Hyperplasia - TURP, Other Problems/ Disorders - Straight cathing at home Denies: Hx Dialysis, Hx Renal Disease Musculoskeletal History: Reports: Hx Arthritis, Hx Back Problems, Hx Orthopedic Injury - Torn Right Rotator Cuff June 2014 Denies: Hx Rheumatoid Arthritis Sensory History: Reports: Hx Cataracts - ASHLY, Hx Contacts or Glasses, Hx Hearing Aid, Hx Hearing Problem Denies: Hx Legally Blind, Hx Deafness Opthamlomology History: Reports: Hx Cataracts - ASHLY, Hx Contacts or Glasses Denies: Hx Legally Blind EENT History: Denies: Hx Deafness Neurological History: Denies: Hx Dementia, Hx Seizures, Other Neuro Impairments/Disorders Psychiatric History: Reports: Hx Anxiety, Hx Depression, Hx Post Traumatic Stress Disorder - recently completed 4 month PTSD program., Hx Suicide Attempt Denies: Hx Panic Disorder - Cancer History Cancer Type, Location and Year: bladder Hx Chemotherapy: No - Surgical History Surgical History: Yes Surgery Procedure, Year, and Place: Cataract Surgery 04/08' at [facility] [place], CHOLECYSTECTOMY 12/17/15. EARLY S CSP FUSION. CSP LAMINECTOMYS. THORACIC OUTLET SURGERY [facility]. TENS UNIT X2. MORPHINE PUMPS IMPLANTED AND REMOVED. Left Knee replacement 01/2016. Shoulder surgery 06/2015. Total tooth extraction 2014 and dentures Hx Anesthesia Reactions: No - Immunization History Date of Tetanus Vaccine: 2018 Date of Influenza Vaccine: 01/2019 Infectious Disease History: No Infectious Disease History: Denies: Traveled Outside the [place] in Last 30 Days - Family History Known Family History: Positive: Diabetes - Social History Occupation: Retired Lives: With Family Alcohol Use: None Hx Substance Use: No Substance Use Type: Reports: None Substance Use Comment - Amount & Last Used: Previous hx. Went to rehab [address] [place] [address] Hx Tobacco Use: Yes Smoking Status (MU): Former Smoker Type: Cigarettes Amount Used/How Often: Pt has not used any tobacco products in last 30 days. Have You Smoked in the Last Year: No Review of Systems Positive: Myalgia - Left neck, at baseline Positive: Other - Positive laceration to the left side of the head Positive: Numbness - Left shoulder, at baseline, Syncope - LOC All Other Systems Reviewed And Are Negative: Yes Physical Exam - Summary Physical Exam Summary: Constitutional: Well-developed, Well-nourished, Alert, Cooperative Skin: Warm, Dry HENT: Normocephalic. Midface stable, Dentition intact. 3 cm laceration to the left parietal scalp. Eyes: EOM normal, PERRL Neck: Trachea is midline. No stridor; No JVD; No step off; Left cervical paraspinal tenderness. No posterior cervical spine tenderness. Cardio: Rhythm regular, rate normal Heart sounds normal; Intact distal pulses; Radial pulses are 2+ and symmetric. Pulmonary/Chest wall: Effort normal; Breath sounds normal; Equal chest rise; No flail segment; No rib tenderness; No sternal tenderness Abd: Soft, Appearance normal. No distension; No tenderness Musculoskeletal: no tenderness at hips, shoulders, elbows and knees; No joint swelling; No vertebral body tenderness; No step off or deformity of the spine. Decreased sensation to the left shoulder and humerus, no obvious deformities. Neuro: Alert, Oriented x3, GCS 15. Strength 5/5 all extremities. Psych: Mood and affect Normal Triage Information Reviewed: Yes Vital Signs On Initial Exam: Initial Vitals Temp Pulse Resp BP Pulse Ox 97.9 F 65 18 151/69 99 04/28/19 20:59 04/28/19 20:59 04/28/19 20:59 04/28/19 20:59 04/28/19 20:59 Vital Signs Reviewed: Yes Procedures - Sedation Patient Received Moderate/Deep Sedation with Procedure: No - Laceration/Wound Repair 1 Location: head - Left parietal Description: Linear Irrigated w/ Saline (ccs): 250 Laceration/Wound Explored: clean Closure: [place] #__ - 4 Debridement: None Diagnostics - Vital Signs Vital Signs Temp Pulse Resp BP Pulse Ox 04/28/19 20:59 97.9 F 65 18 151/69 99 - Laboratory Lab Statement: Any lab studies that have been ordered have been reviewed, and results considered in the medical decision making process. - Radiology Shoulder X-ray Radiology Interpretation Completed By: ED Physician Summary of Radiographic Findings: Shoulder X-ray IMPRESSION: no acute fracture. Reviewed and interpreted by Dr. Kowalski, pending official radiology report. Humerus X-ray Radiology Interpretation Completed By: ED Physician Summary of Radiographic Findings: Humerus X-ray IMPRESSION: no acute fracture. Reviewed and interpreted by Dr. Kowalski, pending official radiology report. Head Injury Course/Dx Course Of Treatment: 68-year-old male presents with head laceration after mechanical fall. - lac to parietal scalp, on aspirin. - Check head CT (age > 65 as per [place] head CT rules). - check CT cspine. Humerus and shoulder XR no acute fractures. - stapled laceration, UTD tetanus - Diagnoses Provider Diagnoses: Fall, Laceration Discharge ED - Sign-Out/Discharge Documenting (check all that apply): Patient Departure - Discharge, Sign-Out Patient Signing out patient TO: Marisela Lozano - Patient is a sign-out at 22:[address] Ene Kowalski MD to Dr. Marisela Lozano MD at shift change, pending imaging results, further workup, and disposition. - Discharge Plan Condition: Stable Disposition: HOME Patient Education Materials: Concussion (ED) Referrals: Deepthi Jacobs MD [Primary Care Provider] - Additional Instructions: You have been seen in the Emergency Department for a traumatic injury. We have evaluated you and have determined that you are stable to go home and follow up outpatient. You received kiara today. These need to be removed in 7 days. Please keep the area dry and clean. Return to the emergency department or seek medical attention for drainage, redness to the area, increased pain around the laceration. Once the wound is healed, you can apply sunscreen to help with scar prevention. When people are injured, it is common to have pain reach the worst it will be up to 24-48 hours after the injury. This means you may hurt worse when you get home. We recommend taking acetaminophen (Tylenol) to help with pain or ibuprofen (Motrin) to help with pain and swelling. You can take 500mg tylenol every 8 hours or 600mg motrin every 8 hours. It is normal to take these medications every 8 hours as needed for several days. Please return to the emergency department for trouble breathing, chest pain, nausea, vomiting, abdominal pain, confusion, severe headaches, new weakness or numbness or if you are concerned. This means when you leave the department, you are responsible for following up on any appointments that were discussed. We think it is important that you call and schedule an appointment to see your primary care doctor. It was pleasure taking care of you today. - Billing Disposition and Condition Condition: STABLE Disposition: Home - Attestation Statements Document Initiated by Macie: Yes Documenting Scribe: Lottie Baldwin Provider For Whom Macie is Documenting (Include Credential): Ene Kowalski MD Scribe Attestation: I, Lottie Baldwin, scribed for Ene Kowalski MD on 04/28/19 at 2206. Scribe Documentation Reviewed: Yes Provider Attestation: The documentation as recorded by the Lottie juan accurately reflects the service I personally performed and the decisions made by me, Ene Kowalski MD Status of Scribe Document: Viewed
[2019-04-28] MEDS ORDERED: Bacitracin OINTMENT* 0.5% 0.5 oz TUBE TOPICAL ONE (22:05)
--- NOTE | 2019-04-28 23:09 | ED ---
Progress - Progress Note Progress Note: Receiving sign-out from Dr. Kowalski pending cervical spine and Brain CT. Brain CT reveals no acute intracranial abnormality. Cervical Spine CT reveals 1. No acute fracture of the cervical vertebral bodies or posterior elements. 2. No pathologic sublaxation. 3. Multilevel degenerative cervical disc disease and facet disease. No significant central canal stenosis. Variable degrees of neural foraminal narrowing secondary degenerative changes of hte uncovertebral joints and facet joins. ED Provider has reviewed these reports. Plan for discharge was discussed with the patient and he was agreeable with this plan. Course/Dx - Course Course Of Treatment: Receiving sign-out from Dr. Kowalski pending cervical spine and Brain CT. Brain CT reveals no acute intracranial abnormality. Cervical Spine CT reveals 1. No acute fracture of the cervical vertebral bodies or posterior elements. 2. No pathologic sublaxation. 3. Multilevel degenerative cervical disc disease and facet disease. No significant central canal stenosis. Variable degrees of neural foraminal narrowing secondary degenerative changes of hte uncovertebral joints and facet joins. ED Provider has reviewed these reports. Plan for discharge was discussed with the patient and he was agreeable with this plan. - Diagnoses Provider Diagnoses: Fall, Laceration, HTN (hypertension) Discharge ED - Sign-Out/Discharge Documenting (check all that apply): Patient Departure - Discharge - Discharge Plan Condition: Stable Disposition: HOME Patient Education Materials: Concussion (ED) Referrals: Deepthi Jacobs MD [Primary Care Provider] - Additional Instructions: You have been seen in the Emergency Department for a traumatic injury. We have evaluated you and have determined that you are stable to go home and follow up outpatient. You received kiara today. These need to be removed in 7 days. Please keep the area dry and clean. Return to the emergency department or seek medical attention for drainage, redness to the area, increased pain around the laceration. Once the wound is healed, you can apply sunscreen to help with scar prevention. When people are injured, it is common to have pain reach the worst it will be up to 24-48 hours after the injury. This means you may hurt worse when you get home. We recommend taking acetaminophen (Tylenol) to help with pain or ibuprofen (Motrin) to help with pain and swelling. You can take 500mg tylenol every 8 hours or 600mg motrin every 8 hours. It is normal to take these medications every 8 hours as needed for several days. Please return to the emergency department for trouble breathing, chest pain, nausea, vomiting, abdominal pain, confusion, severe headaches, new weakness or numbness or if you are concerned. This means when you leave the department, you are responsible for following up on any appointments that were discussed. We think it is important that you call and schedule an appointment to see your primary care doctor. It was pleasure taking care of you today. - Billing Disposition and Condition Condition: STABLE Disposition: Home - Attestation Statements Document Initiated by Macie: Yes Documenting Scribe: Matthew Gonzalez Provider For Whom Macie is Documenting (Include Credential): Marisela Lozano MD Scribe Attestation: I, Matthew Gonzalez, scribed for Marisela Lozano MD on 04/29/19 at 0012. Scribe Documentation Reviewed: Yes Provider Attestation: The documentation as recorded by the Matthew juan accurately reflects the service I personally performed and the decisions made by me, Marisela Lozano MD Status of Scribe Document: Viewed
[2019-04-28 23:18] VITALS: BP 147/83
== END 2019-04-28 22:19 | disposition home or self-care (01) ==
LOC: ED 20:35
DX: S01.91XA Laceration without foreign body of unspecified part of head, initial encounter (principal); W19.XXXA Unspecified fall, initial encounter; Y92.9 Unspecified place or not applicable; R55 Syncope and collapse; E78.00 Pure hypercholesterolemia, unspecified; Z86.718 Personal history of other venous thrombosis and embolism; K21.9 Gastro-esophageal reflux disease without esophagitis; N40.0 Benign prostatic hyperplasia without lower urinary tract symptoms; F41.9 Anxiety disorder, unspecified; F32.9 Major depressive disorder, single episode, unspecified; Z87.891 Personal history of nicotine dependence
CPT/HCPCS: 12001; 70450; 72125; 99282; A9270-GY

== ENCOUNTER 2019-08-08 10:01 | Observation (INO) | payer MEDICARE ==
[2019-08-08 10:25] LABS: ABS Basophils 0.1 10^3/ul (0-0.2); ABS Eosinophils 0.2 10^3/ul (0-0.6); ABS Lymphocytes 1.7 10^3/ul (1.0-4.8); ABS Monocytes 0.6 10^3/ul (0-0.8); ABS Neutrophils 5.4 10^3/ul (1.5-7.7); Eosinophil % 2.5 %; Hematocrit 41 % (42-52); Hemoglobin 14.3 g/dL (14.0-18.0); Lymphocyte % 21.7 %; Mean Corpuscular HGB Conc 35 g/dL (31-36); Mean Corpuscular Hemoglobin 31 pg (27-31); Mean Corpuscular Volume 90 fL (80-94); Mean Platelet Volume 7.4 fL (7.4-10.4); Platelet Count 205 10^3/uL (150-450); Red Blood Count 4.58 10^6 /uL (4.18-5.48); Red Cell Distribution Width 14 % (10-15)
--- OUTSIDE RECORDS SUMMARY | 2019-08-08 10:31 | XMS REPORT | Continuity of Care Document ---
:1950 External Reference #:[id number] Author Name Deepthi Molina M.D., R.D. (transmitted by agent of provider Dayanna Fuentes) Address [address] [place] [address] Care Team Providers Name Role Phone Delon Mix MD - Orthopaedic Care Team Information Case Assistant [phone] Surgery Carlito Tinoco MD - Orthopaedic Care Team Information Case Assistant Surgery Problems Active Problems Provider Date Depressive disorder Anitra Tapia M.D. Onset: 03/13/2013 Type II diabetes mellitus uncontrolled Anitra Tapia M.D. Onset: 03/13 Posttraumatic stress disorder Anitra Tapia M.D. Onset: 03/13/2013 Obesity Anitra Tapia M.D. Onset: 03/13/2013 Obstructive sleep apnea syndrome Anitra Tapia M.D. Onset: 03/13/2013 Neck pain Anitra Tapia M.D. Onset: 03/13/2013 Benign essential hypertension Anitra Tapia M.D. Onset: 03/13/2013 Pure hypercholesterolemia Anitra Tapia M.D. 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 Onset: mellitus Social History Type Date Description Comments Sex Unknown Tobacco Use Start: Unknown End: Former Cigarette Smoker Unknown ETOH Use Has consumed alcohol in the past Tobacco Use Start: Unknown End: Patient is a former smoker Unknown Smoking Status Reviewed: 11/25/18 Patient is a former smoker Exercise Type/Frequency Exercises rarely Allergies, Adverse Reactions, Alerts Active Allergies Reaction Severity Comments Date Ciprofloxacin Urticaria Moderate 04/05/2013 Novocain Rash under the chin usually with dental Mild 04/05/2013 work Eric Inhibitors angioedema 01/28/2015 Medications Active Medications SIG Qnty Indications Ordering Date Provider Albuterol Sulfate 1 vial every 4 75ml Yue 04/22/20 (2.5mg/3ML) hours as needed for FIDENCIO Espinosa 18 0.083% Nebulizer cough/wheeze/shortn ess of breath Nebulizer use as directed. J44.9 Yue 04/22/20 Kit/Tubing/Mouthpiece dx: j44.9 FIDENCIO Espinosa 18 Kit Zofran Odt 1 tablet dissolved 15tabs R11.0 Lottie 07/25/19 4mg Tablets on tongue every 6-8 Malcolm 17 Dispers hours no more than [employer]-C 3 times /day for nausea Prazosin HCL take two capsules 30caps F43.10 Deepthi 07/25/19 2mg Capsules by mouth at bedtime Yossi Molina M.D., R.Kelli. Fish Oil Burp-Less 1 po qd Deepthi 03/13/20 1200mg Jesse 15 Leonardo Robertson, R.D. Simvastatin 1 po qhs 30tabs Deepthi 03/13/20 40mg Tablets Gwen Molina M.D., R.D. Temazepam Deepthi 03/13/20 2mg Capsules Gwen Molina M.D., R.D. Metformin HCL 1 by mouth twice a 360tabs Deepthi 03/13/20 500mg Tablets day Gwen Molina M.D., R.D. Flector Deepthi 03/13/20 1.3% Patches Gwen Molina M.D., R.D. Magnesium 1 po bid Deepthi 03/13/20 Capsules Gwen Molina M.D., R.D. Cpap Deepthi 03/13/20 11mm Gwen Molina M.D., R.D. Ipratropium [place] one vial via 75ml J44.1 Lacie RRobbin 08/31/19 0.02% nebulized treatment Russ [employer]-C 15 Solution four times daily for breathing Morphine Sulfate 1 or 2 po q4qhr prn 20Twenty Liambrettjenn R. 06/30/19 15mg Tablets severe pain Storm, [employer]C 15 Aspirin Ec 1 po qd 30tabs Anitra M. 03/11/[address] Regina M.D. 13 Senna take one tablet bid 60tabs Anitra M. 03/11/20 8.6mg Tablets prmerna Tapia M.D. 13 Novolog per sliding scale Anitra M. 03/11/20 100Unit/ML Solution Ailyn Tapia 13 Vitamin D3 Complete Unknown Tablets 00 Vitamin B-12 1 by mouth every Unknown 100mcg Tablets day Acidophilus Unknown Capsules 00 Lisinopril 1/2 by mouth every 90Tablet Unknown 10mg Tablets day Trazodone HCL take 3 tablet by Unknown 50mg Tablets mouth at bedtime if 00 needed for sleep Theophylline ER Unknown 400mg Tablets 00 ER 24HR Lantus 36 units nightly Unknown 100Unit/ML Solution injected 00 subcutaneously Tamsulosin HCL 1 by mouth every Unknown 0.4mg Capsules day 00 Docusate Sodium take one capsule by Unknown 100mg mouth every day 00 Capsules (stool softener) Sertraline HCL 1 by mouth every Unknown 100mg Tablets day Klor-Con M10 1 by mouth twice a Unknown 10Meq Tablets ER day 00 Omeprazole 1 by mouth every Unknown 20mg Capsules DR day Montelukast Sodium take one tablet by Unknown 10mg mouth at bedtime 00 Tablets Hydrochlorothiazide 1 by mouth every Unknown 25mg day 00 Tablets Fentanyl Apply 1 Patch To Unknown 12mcg/HR Patches Skin And Change 00 72HR Every 72 Hours Max Daily Dose 1 Patch Every 3Days Fentanyl Apply 1 Patch To Unknown 25mcg/HR Patches The Skin Every 3 00 72HR Days Maximum Daily Dose 1 Patch Per 3 Days Tylenol Unknown 325mg Capsules 00 Metoclopramide HCL take one tablet by 30tabs Deepthi 00/00/00 10mg mouth every 8 hours Jesse, 00 Tablets as needed for M.D., R.D. headache Bupropion HCL ER (SR) 1 by mouth once a Unknown 150mg day 00 Tablets ER 12HR Immunizations CPT Code Status Date Vaccine Reaction Lot # [id number] Given 02/02/2019 Influenza Virus Vaccine, Quadrivalent, 3 Yr > Quad, Preserv Free 92190 Given 02/02/2019 Influenza Virus Vaccine, Quadrivalent, 3 Yr > Quad, Preserv Free 28123 Given 05/31/2018 [place] [id number] Given 01/08/2017 Zoster Vaccine 44492 Given 01/06/2017 Influenza Virus Vaccine, Quadrivalent, 3 Yr > Quad, Preserv Free 13330 Given 02/17/2016 Influenza Virus Vaccine, Quadrivalent, 3 Yr > Quad, Preserv Free 44124 Given 01/24/2015 Influenza Virus Vaccine, Quadrivalent, 3 Yr > Quad, Preserv Free 54272 Given 01/01/2014 Tdap (Adacel) [id number] 40692 Given 01/01/2014 Influenza Vaccine High Dose PF [id number] 09578 Given 02/27/2013 Pneumovax 23 (PPSV23) 65+ years or high risk 2 to 64 year old 23784 Given 12/26/2012 Influenza Vaccine-Preservative Free 3 Yrs And Above 53732 Ordered 02/07/2015 Prevnar-13 Pneumococcal Conjugate [facility] Vaccine Vital Signs Date Vital Result Comment 06/26/2019 11:15am Weight 185.00 lb Weight 83.916 kg BP Systolic 130 mmHg BP Diastolic 78 mmHg Heart Rate 55 /min Body Temperature 97.2 F Respiratory Rate 16 /min O2 % BldC Oximetry 98 % 06/07/2019 3:39pm Weight 184.00 lb Weight 83.462 kg BP Systolic 126 mmHg BP Diastolic 68 mmHg Heart Rate 90 /min Body Temperature 97.6 F Respiratory Rate 18 /min Height 67 inches 5'7" BMI (Body Mass Index) 28.8 kg/m2 O2 % BldC Oximetry 96 % Results Test Acquired Date Facility Test Result H/L Range Note Hemoccult 06/07/2019 In House Lab Stool-Occult Blood neg-no date Neg [phone] Stool-Occult Blood #2 neg-05/18/19 Neg Stool-Occult Blood #3 neg-05/20/19 Neg CBC Auto 06/01/2019 [facility] White Blood 5.8 10^3/ uL Normal 3.5-10.8 Diff [phone] Count Red Blood Count 4.62 10^6/uL Normal 4.18-5.48 Hemoglobin 14.3 g/dL Normal 14.0-18.0 Hematocrit 41 % Low 42-52 Mean Corpuscular Volume 89 fL Normal 80-94 Mean Corpuscular Hemoglobin 31 pg Normal 27-31 Mean Corpuscular HGB Conc 35 g/dL Normal 31-36 Red Cell Distribution Width 14 % Normal 10-15 Platelet Count 221 10^3/uL Normal 150-450 Mean Platelet Volume 7.1 fL Low 7.4-10.4 Abs Neutrophils 3.8 10^3/uL Normal 1.5-7.7 Abs Lymphocytes 1.4 10^3/uL Normal 1.0-4.8 Abs Monocytes 0.5 10^3/uL Normal 0-0.8 Abs Eosinophils 0.1 10^3/uL Normal 0-0.6 Abs Basophils 0.0 10^3/uL Normal 0-0.2 Abs Nucleated RBC 0.0 10^3/uL Granulocyte % 65.4 % Lymphocyte % 23.9 % Monocyte % 8.7 % Eosinophil % 1.3 % Basophil % 0.7 % Nucleated Red Blood Cells % 0.1 Laboratory test 06/01/2019 [facility] Lactic Acid 1.0 mmol/L Normal 0.5-2.0 1 finding [phone] Ammonia 38 mcmol/L Normal 16-53 Comp Metabolic 06/01/2019 [facility] Sodium 134 mmol/ L Low 135-145 Panel [phone] Potassium 4.5 mmol/L Normal 3.5-5.0 Chloride 99 mmol/L Low 101-111 Co2 Carbon Dioxide 27 mmol/L Normal 22-32 Anion Gap 8 mmol/L Normal 2-11 Glucose 80 mg/dL Normal 70-100 Blood Urea Nitrogen 22 mg/dL Normal 6-24 Creatinine 0.99 mg/dL Normal 0.67-1.17 BUN/Creatinine Ratio 22.2 High 8-20 Calcium 9.3 mg/dL Normal 8.6-10.3 Total Protein 6.5 g/dL Normal 6.4-8.9 Albumin 4.3 g/dL Normal 3.2-5.2 Globulin 2.2 g/dL Normal 2-4 Albumin/Globulin Ratio 2.0 Normal 1-3 Total Bilirubin 0.90 mg/dL Normal 0.2-1.0 Alkaline Phosphatase 85 U/L Normal 34-104 Alt 91 U/L High 7-52 Ast 66 U/L High 13-39 Egfr Non- 74.7 >60 Egfr 90.4 >60 2 Laboratory test 06/01/2019 [facility] Lipase 19 U/L Normal 11.0-82.0 finding [phone] C Reactive Protein 1.11 mg/L Normal <8.01 Alcohol < 10 mg/dL Normal <10 Urinalysis Profile 06/01/2019 [facility] Urine Color Yellow [phone] Urine Appearance Clear Urine Specific Kendall 1.020 Normal 1.010-1.030 Urine pH 6.0 Normal 5-9 Urine Urobilinogen Negative Negative Urine Ketones Trace Abnormal Negative Urine Protein Negative Negative Urine Leukocytes Negative Negative Urine Blood Negative Negative Urine Nitrite Negative Negative Urine Bilirubin Negative Negative Urine Glucose Negative Negative Urine White Blood Cell Trace(0-5/hpf) Absent Urine Red Blood Cell Absent Absent Urine Bacteria Absent Absent Urine Squamous Epithelial Cell Present Abnormal Absent Urine Culture And 06/01/2019 [facility] Urine SEE RESULT 3 Sensitivities [phone] Culture BELOW Laboratory test 05/08/2019 [facility] Vitamin B12 674 pg/mL Normal 180-9 4 finding [phone] CBC Auto Diff 05/08/2019 [facility] White Blood 3.9 10^3/uL Normal 3.5-5 [phone] Count 0.8 Red Blood Count 4.09 10^6/uL Low 4.18-5.48 Hemoglobin 12.6 g/dL Low 14.0-18.0 Hematocrit 37 % Low 42-52 Mean Corpuscular Volume 91 fL Normal 80-94 Mean Corpuscular Hemoglobin 31 pg Normal 27-31 Mean Corpuscular HGB Conc 34 g/dL Normal 31-36 Red Cell Distribution Width 14 % Normal 10-15 Platelet Count 221 10^3/uL Normal 150-450 Mean Platelet Volume 7.6 fL Normal 7.4-10.4 Abs Neutrophils 1.5 10^3/uL Normal 1.5-7.7 Abs Lymphocytes 1.7 10^3/uL Normal 1.0-4.8 Abs Monocytes 0.5 10^3/uL Normal 0-0.8 Abs Eosinophils 0.2 10^3/uL Normal 0-0.6 Abs Basophils 0.0 10^3/uL Normal 0-0.2 Abs Nucleated RBC 0.0 10^3/uL Granulocyte % 37.8 % Lymphocyte % 44.9 % Monocyte % 12.6 % Eosinophil % 4.4 % Basophil % 0.3 % Nucleated Red Blood Cells % 0.1 CBC Auto 04/15/2019 [facility] White Blood 7.1 10^3/ uL Normal 3.5-10.8 Diff [phone] Count Red Blood Count 4.46 10^6/uL Normal 4.18-5.48 Hemoglobin 13.8 g/dL Low 14.0-18.0 Hematocrit 40 % Low 42-52 Mean Corpuscular Volume 90 fL Normal 80-94 Mean Corpuscular Hemoglobin 31 pg Normal 27-31 Mean Corpuscular HGB Conc 35 g/dL Normal 31-36 Red Cell Distribution Width 14 % Normal 10-15 Platelet Count 275 10^3/uL Normal 150-450 Mean Platelet Volume 6.9 fL Low 7.4-10.4 Abs Neutrophils 3.8 10^3/uL Normal 1.5-7.7 Abs Lymphocytes 2.3 10^3/uL Normal 1.0-4.8 Abs Monocytes 0.6 10^3/uL Normal 0-0.8 Abs Eosinophils 0.2 10^3/uL Normal 0-0.6 Abs Basophils 0.1 10^3/uL Normal 0-0.2 Abs Nucleated RBC 0.0 10^3/uL Granulocyte % 54.1 % Lymphocyte % 32.9 % Monocyte % 9.0 % Eosinophil % 2.3 % Basophil % 1.7 % Nucleated Red Blood Cells % 0.1 Laboratory test 04/15/2019 [facility] Troponin-I 0.01 ng/mL <0.03 5 finding [phone] (TnI) Basic Metabolic 04/15/2019 [facility] Sodium 133 mmol /L Low 135-145 Panel [phone] Potassium 4.1 mmol/L Normal 3.5-5.0 Chloride 98 mmol/L Low 101-111 Co2 Carbon Dioxide 28 mmol/L Normal 22-32 Anion Gap 7 mmol/L Normal 2-11 Glucose 84 mg/dL Normal 70-100 Blood Urea Nitrogen 30 mg/dL High 6-24 Creatinine 1.17 mg/dL Normal 0.67-1.17 BUN/Creatinine Ratio 25.6 High 8-20 Calcium 9.1 mg/dL Normal 8.6-10.3 Egfr Non- 61.6 >60 Egfr 74.6 >60 6 1 [facility] Severe Sepsis and Septic Shock Management Bundle Measure requires all lactic acids initially measuring >2.0 mmol/L be repeated. 2 Because ethnic data is not always readily available, this report includes an eGFR for both -Americans and non- Americans. The National Kidney Disease Education Program (NKDEP) does not endorse the use of the MDRD equation for patients that are not between the ages of 18 and 70, are , have extremes of body size, muscle mass, or nutritional status, or are non- or non-. According to the National Kidney Foundation, irrespective of diagnosis, the stage of the disease is based on the level of kidney function: Stage Description GFR(mL/min/1.73 m(2)) 1 Kidney damage with normal or decreased GFR 90 2 Kidney damage with mild decrease in GFR 60-89 3 Moderate decrease in GFR 30-59 4 Severe decrease in GFR 15-29 5 Kidney failure <15 (or dialysis) 3 SEE RESULT BELOW Name: ROYAL RIVAS : [address]: Lio Bolivar MD Acct: [id number] Unit: [id number] AGE: 68 Location: ED Re06/01/19 SEX: M Status: DEP ER SPEC: [id number] KRISTAL: 06/01/19-[address]: Lio Bolivar MD REQ: [id number] RECD: 06/01/19 STATUS: COMP [facility] DR: Deepthi Molina MD _ SOURCE: [facility]: Urine Culture Procedure Result Reported Site Urine Culture Final 06/03/19- 928 ML No growth of clinically significant organisms * ML - Main Lab . END OF REPORT DEPARTMENT OF PATHOLOGY, [address] [place] [address] Hoang Gamboa M.D. Director [facility] # [id number] 4 Normal Range 180 to 914 Indeterminate Range 145 to 180 Deficient Range <145 5 Troponin-I testing on Plasma Separator Tubes (PST) has a known false positive rate of 0.20-0.40%. All positive troponins reflex immediately to secondary confirmatory testing. Using the [employer] 800 Access Immunoassay systems, the 99th percentile upper reference limit was demonstrated to be < 0.03 ng/mL. 6 Because ethnic data is not always readily available, this report includes an eGFR for both -Americans and non- Americans. The National Kidney Disease Education Program (NKDEP) does not endorse the use of the MDRD equation for patients that are not between the ages of 18 and 70, are , have extremes of body size, muscle mass, or nutritional status, or are non- or non-. According to the National Kidney Foundation, irrespective of diagnosis, the stage of the disease is based on the level of kidney function: Stage Description GFR(mL/min/1.73 m(2)) 1 Kidney damage with normal or decreased GFR 90 2 Kidney damage with mild decrease in GFR 60-89 3 Moderate decrease in GFR 30-59 4 Severe decrease in GFR 15-29 5 Kidney failure <15 (or dialysis) Procedures Date Code Description Status 04/26/2012 09056657 Colonoscopy Completed Medical Devices Description No Information Available Encounters Type Date Location Provider Dx Diagnosis Office Visit 06/07/2019 Main Office Deepthi Molina, S06.0x1A Concussion w Loc of 3:45p M.D., R.D. 30 minutes or less, init F32.89 Other specified depressive episodes F43.10 Post-traumatic stress disorder, unspecified R63.4 Abnormal weight loss E86.0 Dehydration Z12.11 Encounter for screening for malignant neoplasm of colon Office Visit 05/10/2019 4:15p Main Office Deepthi Molina, S01.81xA Laceration w/o M.D., R.D. foreign body of oth part of head, init encntr S06.0x1A Concussion w Loc of 30 minutes or less, init E86.0 Dehydration Office Visit 04/07/2019 1:15p [facility] Deepthi Molina, J44.0 Chr obstructive M.D., R.D. pulmon disease with (acute) lower resp infct Assessments Date Code Description Provider 06/26/2019 S06.0x1A Concussion with loss of consciousness Deepthi Molina M.D., R.D. of 30 minutes or less, initial encounter 06/26/2019 F32.89 Other specified depressive episodes Deepthi Molina M.D., R.D. 06/26/2019 F43.10 Post-traumatic stress disorder, Deepthi Molina M.D., R.D. unspecified 06/26/2019 R63.4 Abnormal weight loss Deepthi Molina M.D., R.D. 06/26/2019 J06.9 Acute upper respiratory infection, Deepthi Molina M.D., R.D. unspecified 06/07/2019 S06.0x1A Concussion with loss of consciousness Deepthi Molina M.D., R.D. of 30 minutes or less, initial encounter 06/07/2019 F32.89 Other specified depressive episodes Deepthi Molina M.D., R.D. 06/07/2019 F43.10 Post-traumatic stress disorder, Deepthi Molina M.D., R.D. unspecified 06/07/2019 R63.4 Abnormal weight loss Deepthi Molina M.D., R.D. 06/07/2019 E86.0 Dehydration Deepthi Molina M.D., R.D. 06/07/2019 Z12.11 Encounter for screening for malignant Deepthi Molina M.D. , R.D. neoplasm of colon 06/05/2019 S06.0x1A Concussion with loss of consciousness Deepthi Molina M.D., R.D. of 30 minutes or less, initial encounter 05/10/2019 S01.81xA Laceration without foreign body of Deepthi Molina M.D. , R.D. other part of head, initial encounter 05/10/2019 S06.0x1A Concussion with loss of consciousness Deepthi Molina M.D., R.D. of 30 minutes or less, initial encounter 05/10/2019 E86.0 Dehydration Deepthi Molina M.D., R.D. 05/08/2019 D51.9 Vitamin B12 deficiency anemia, Deepthi Molina M.D., R.D. unspecified 05/08/2019 D51.9 Vitamin B12 deficiency anemia, [facility] unspecified 04/07/2019 J44.0 Acute exacerbation of chronic Deepthi Molina M.D., R.D. obstructive airways disease Plan of Treatment No Information Available Functional Status Description No Information Available Mental Status Description No Information Available Referrals Refer to Reason for Referral Status Appt Date Zayda Cesar NP @[facility] Created [address] [place] [address] [phone]
--- OUTSIDE RECORDS SUMMARY | 2019-08-08 10:31 | XMS REPORT | Continuity of Care Document ---
:1950 External Reference #:[id number] Author Name Jeremy Sidhu MD (transmitted by agent of provider Maria R Kim) Address [address] [place] [address] Care Team Providers Name Role Phone Delon Mix MD - Orthopaedic Care Team Information [place] Information Clerk Surgery Carlito Tinoco MD - Orthopaedic Care Team Information [place] Information Clerk Surgery Problems Active Problems Provider Date Depressive [...] Medications SIG Qnty Indications Ordering Date Provider Doxycycline Hyclate 1 tab by mouth 14tabs Jeremy 08/01/19 100mg twice a day for 7 MD Thea 20 Tablets days Albuterol Sulfate 1 vial every 4 75ml Yue 04/22/20 (2.5mg/3ML) hours as needed for FIDENCIO Espinosa 18 0.083% Nebulizer cough/wheeze/shortn ess of breath Nebulizer use as directed. J44.9 Yue 04/22/20 Kit/Tubing/Mouthpiece dx: j44.9 FIDENCIO Espinosa 18 Kit Zofran Odt 1 tablet dissolved 15tabs R11.0 Lottie 07/25/19 4mg Tablets on tongue every 6-8 Malcolm, 17 Dispers hours no more than ADOBE ARCHITECT-C 3 times /day for nausea Prazosin HCL take two capsules 30caps F43.10 Deepthi 07/25/19 2mg Capsules by mouth at bedtime Yossi Molina M.D., R.D. Fish Oil Burp-Less 1 po qd Deepthi 03/13/20 1200mg Jesse, 15 Leonardo Robertson, R.D. Simvastatin 1 po [...] Molina M.D., R.D. Cpap Deepthi 03/13/20 11mm wGen Molina M.D., R.D. Ipratropium [place] one vial via 75ml J44.1 Damionwsuki Ferro 08/31/19 0.02% nebulized treatment Storm, ADOBE ARCHITECT-C 15 Solution four times daily for breathing Morphine Sulfate 1 or 2 po q4qhr prn 20Twebretty Lacie R. 06/30/19 15mg Tablets severe pain Storm, ADOBE ARCHITECT-C 15 Aspirin Ec 1 po qd 30tabs Anitra . 03/11/[address] Regina M.D. 13 Senna take one tablet bid 60tabs Anitra M. 03/11/20 8.6mg Tablets prmerna Tapia M.D. 13 Novolog per sliding scale [facility] 03/11/20 100Unit/ML Solution Ailyn Tapia 13 Vitamin [...] by mouth every Unknown 0.4mg Capsules day Docusate Sodium take one capsule by Unknown [...] HCL take one tablet by 30tabs Deepthi 10mg mouth every 8 hours Jesse, 00 Tablets as needed for M.D., R.D. headache Bupropion HCL ER (SR) 1 by mouth once a Unknown 150mg day 00 Tablets ER 12HR Immunizations CPT Code Status Date Vaccine Reaction Lot # [id number] Given 02/02/2019 Influenza Virus Vaccine, Quadrivalent, 3 Yr > Quad, Preserv Free 83435 Given 02/02/2019 Influenza Virus Vaccine, Quadrivalent, 3 Yr > Quad, Preserv Free 01319 Given 05/31/2018 [place] [address] Given 01/08/2017 Zoster Vaccine 80807 Given 01/06/2017 Influenza Virus Vaccine, Quadrivalent, 3 Yr > Quad, Preserv Free 35215 Given 02/17/2016 Influenza Virus Vaccine, Quadrivalent, 3 Yr > Quad, Preserv Free 76172 Given 01/24/2015 Influenza Virus Vaccine, Quadrivalent, 3 Yr > Quad, Preserv Free 16391 Given 01/01/2014 Tdap (Adacel) [id number] 45361 Given 01/01/2014 Influenza Vaccine High Dose PF [id number] 72241 Given 02/27/2013 Pneumovax 23 (PPSV23) 65+ years or high risk 2 to 64 year old 69602 Given 12/26/2012 Influenza Vaccine-Preservative Free 3 Yrs And Above 60431 Ordered 02/07/2015 Prevnar-13 Pneumococcal Conjugate At Hospica Vaccine Vital Signs Date Vital Result Comment [...] House Lab Stool-Occult Blood neg-no date Neg (607)- - #1 Stool-Occult Blood #2 neg-05/18/19 Neg Stool-Occult Blood #3 neg-05/20/19 Neg CBC Auto 06/01/2019 [facility] White Blood 5.8 10^3/ uL Normal 3.5-10.8 Diff [phone] Count Red Blood Count 4.62 10^6/uL Normal [...] Blood Cells % 0.1 Laboratory test 06/01/2019 [facility] Lactic Acid 1.0 mmol/L Normal 0.5-2.0 1 finding [phone] Ammonia 38 mcmol/L Normal 16-53 Comp Metabolic 06/01/2019 [facility] Sodium 134 mmol/ L Low 135-145 Panel [phone] Potassium 4.5 mmol/L Normal 3.5-5.0 Chloride 99 [...] Egfr 90.4 >60 2 Laboratory test 06/01/2019 [facility] Lipase 19 U/L Normal 11.0-82.0 finding [phone] C Reactive Protein 1.11 mg/L Normal <8.01 Alcohol < 10 mg/dL Normal <10 Urinalysis Profile 06/01/2019 [facility] Urine Color Yellow [phone] Urine Appearance Clear Urine Specific [place] 1.020 Normal 1.010-1.030 Urine pH 6.0 Normal [...] Present Abnormal Absent Urine Culture And 06/01/2019 [facility] Urine SEE RESULT 3 Sensitivities [phone] Culture BELOW Laboratory test 05/08/2019 [facility] Vitamin B12 674 pg/mL Normal 180-9 4 finding [phone] 14 CBC Auto Diff 05/08/2019 [facility] White Blood 3.9 10^3/uL Normal 3.5-1 [phone] Count 0.8 Red Blood Count 4.09 10^6/uL [...] Blood Cells % 0.1 CBC Auto 04/15/2019 [facility] White Blood 7.1 10^3/ uL Normal 3.5-10.8 Diff [phone] Count Red Blood Count 4.46 10^6/uL Normal [...] Blood Cells % 0.1 Laboratory test 04/15/2019 [facility] Troponin-I 0.01 ng/mL <0.03 5 finding [phone] (TnI) Basic Metabolic 04/15/2019 [facility] Sodium 133 mmol /L Low 135-145 Panel [phone] Potassium 4.1 mmol/L Normal 3.5-5.0 Chloride 98 mmol/L Low 101-111 Co2 Carbon Dioxide 28 mmol/L Normal 22-32 Anion Gap 7 mmol/L Normal 2-11 Glucose 84 mg/dL Normal 70-100 Blood Urea Nitrogen 30 mg/dL High 6-24 Creatinine 1.17 mg/dL Normal 0.67-1.17 BUN/Creatinine Ratio 25.6 High 8-20 Calcium 9.1 mg/dL Normal 8.6-10.3 Egfr Non- 61.6 >60 Egfr 74.6 >60 6 1 [facility] Severe Sepsis and Septic Shock Management Bundle [...] [address]: Lio Bolivar MD Acct: [id number] Unit: [id number] AGE: 68 Location: ED Re06/01/19 SEX: M Status: DEP ER SPEC: [id number] KRISTAL: 06/01/19 [facility] DR: Lio Bolivar MD REQ: [id number] RECD: 06/01/19 STATUS: NAVID SEVERINO DR: Deepthi Molina MD _ SOURCE: URINE SPDESC: ORDERED: Urine Culture Procedure Result Reported Site Urine Culture Final 06/03/19- 928 ML No growth of clinically significant organisms * ML - Main Lab . END OF REPORT DEPARTMENT OF PATHOLOGY, [address] [place] [address] Hoang Gamboa M.D. Director [facility] # [id number] 4 Normal Range 180 to 914 Indeterminate Range 145 to 180 Deficient Range <145 5 Troponin-I testing on Plasma Separator Tubes (PST) has a known false positive rate of 0.20-0.40%. All positive troponins reflex immediately to secondary confirmatory testing. Using the [employer] DxI 800 Access Immunoassay systems, the 99th percentile [...] dialysis) Procedures Date Code Description Status 04/26/2012 42606155 Colonoscopy Completed Medical Devices Description No Information Available Encounters Type Date Location Provider Dx Diagnosis Office Visit 06/26/2019 Main Office Deepthi Molina, S06.0x1D Concussion w Loc of 11:15a M.D., R.D. 30 minutes or less, subs S06.0x1A Concussion w Loc of 30 minutes or less, init F32.89 Other specified depressive episodes F43.10 Post-traumatic stress disorder, unspecified R63.4 Abnormal weight loss J06.9 Acute upper respiratory infection, unspecified Office Visit 06/07/2019 3:45p Main Office Deepthi Molina, S06.0x1A Concussion w Loc M.D., R.D. of 30 minutes or less, init F32.89 Other [...] init E86.0 Dehydration Office Visit 04/07/2019 1:15p [facility] Deepthi Molina, J44.0 Chr obstructive M.Isaac, R.D. pulmon disease with (acute) lower resp infct Assessments Date Code Description Provider 08/01/2019 J44.1 Chronic obstructive pulmonary disease Jeremy Sidhu MD with (acute) exacerbation 06/26/2019 S06.0x1D Concussion with loss of consciousness Deepthi Molina M.D., R.D. of 30 minutes or less, subsequent encounter 06/26/2019 S06.0x1A Concussion with loss of consciousness [...] R.D. obstructive airways disease Plan of Treatment 08/01/2019 - Jeremy Sidhu MDJ44.1 Chronic obstructive pulmonary disease with (acute) exacerbationComments:Abx today, COVID testing tomorrow. Functional Status Description No Information Available Mental Status Description No Information Available Referrals Refer to Reason for Referral Status Appt Date Zayda Csear NP @[facility] Created [address] [place] [address] [phone]
--- OUTSIDE RECORDS SUMMARY | 2019-08-08 10:31 | XMS REPORT | Continuity of Care Document ---
:1950 External Reference #:[id number] Author Name Jeremy Sidhu MD (transmitted by agent of provider Dayanna Fuentes) Address [address] [place] [address] Care Team Providers Name Role Phone Delon Mix MD - Orthopaedic Care Team Information Application Analyst Surgery Carlito Tinoco MD - Orthopaedic Care Team Information Application Analyst Surgery Problems Active Problems Provider Date Depressive [...] Malcolm, 17 Dispers hours no more than PROFESSOR OF BIOLOGY-C 3 times /day for nausea Prazosin HCL [...] 03/13/20 11mm Gwen Molina M.D., R.D. Ipratropium [place] one vial via 75ml J44.1 Lacie Ferro 05/07/20 0.02% nebulized treatment Storm, PROFESSOR OF BIOLOGY-C 15 Solution four times daily for breathing Morphine Sulfate 1 or 2 po q4qhr prn 20Twebrettholden Lacie RRobbin 06/30/19 15mg Tablets severe pain Storm, PROFESSOR OF BIOLOGY-C 15 Aspirin Ec 1 po qd 30tabs Anitra . 03/11/[address] Regina M.D. 13 Senna take one tablet bid 60tabs Anitra MRobbin 03/11/20 8.6mg Tablets prmerna Tapia M.D. 13 Novolog per sliding scale [facility] 03/11/20 100Unit/ML Solution Ailyn Tapia 13 Vitamin [...] Code Status Date Vaccine Reaction Lot # [id number] Given 02/02/2019 Influenza Virus Vaccine, Quadrivalent, 3 Yr > Quad, Preserv Free 36886 Given 02/02/2019 Influenza Virus Vaccine, Quadrivalent, 3 Yr > Quad, Preserv Free 42115 Given 05/31/2018 [place] [address] Given 01/08/2017 Zoster Vaccine 94559 Given 01/06/2017 Influenza Virus Vaccine, Quadrivalent, 3 Yr > Quad, Preserv Free 72561 Given 02/17/2016 Influenza Virus Vaccine, Quadrivalent, 3 Yr > Quad, Preserv Free 12280 Given 01/24/2015 Influenza Virus Vaccine, Quadrivalent, 3 Yr > Quad, Preserv Free 25850 Given 01/01/2014 Tdap (Adacel) [id number] 99178 Given 01/01/2014 Influenza Vaccine High Dose PF [id number] 87090 Given 02/27/2013 Pneumovax 23 (PPSV23) 65+ years or high risk 2 to 64 year old 66544 Given 12/26/2012 Influenza Vaccine-Preservative Free 3 Yrs And Above 79597 Ordered 02/07/2015 Prevnar-13 Pneumococcal Conjugate At Hospica [...] House Lab Stool-Occult Blood neg-no date Neg (090)- - #1 Stool-Occult Blood #2 neg-05/18/19 Neg Stool-Occult Blood #3 neg-05/20/19 Neg CBC Auto 06/01/2019 [facility] White Blood 5.8 10^3/ uL Normal 3.5-10.8 Diff [phone] Count Red Blood Count 4.62 10^6/uL Normal [...] Blood Cells % 0.1 Laboratory test 06/01/2019 [facility] Lactic Acid 1.0 mmol/L Normal 0.5-2.0 1 finding [phone] Ammonia 38 mcmol/L Normal 16-53 Comp Metabolic 06/01/2019 [facility] Sodium 134 mmol/ L Low 135-145 Panel [phone] Potassium 4.5 mmol/L Normal 3.5-5.0 Chloride 99 [...] Egfr 90.4 >60 2 Laboratory test 06/01/2019 [facility] Lipase 19 U/L Normal 11.0-82.0 finding [phone] C Reactive Protein 1.11 mg/L Normal <8.01 Alcohol < 10 mg/dL Normal <10 Urinalysis Profile 06/01/2019 [facility] Urine Color Yellow [phone] Urine Appearance Clear Urine Specific [place] 1.020 Normal 1.010-1.030 Urine pH 6.0 Normal [...] Present Abnormal Absent Urine Culture And 06/01/2019 [facility] Urine SEE RESULT 3 Sensitivities [phone] Culture BELOW Laboratory test 05/08/2019 [facility] Vitamin B12 674 pg/mL Normal 180-9 4 finding [phone] CBC Auto Diff 05/08/2019 [facility] White Blood 3.9 10^3/uL Normal 3.5-4 [phone] Count 0.8 Red Blood Count 4.09 10^6/uL [...] Blood Cells % 0.1 CBC Auto 04/15/2019 [facility] White Blood 7.1 10^3/ uL Normal 3.5-10.8 Diff [phone] Count Red Blood Count 4.46 10^6/uL Normal [...] Blood Cells % 0.1 Laboratory test 04/15/2019 [facility] Troponin-I 0.01 ng/mL <0.03 5 finding [phone] (TnI) Basic Metabolic 04/15/2019 [facility] Sodium 133 mmol /L Low 135-145 Panel [phone] Potassium 4.1 mmol/L Normal 3.5-5.0 Chloride 98 mmol/L Low 101-111 Co2 Carbon Dioxide 28 mmol/L Normal 22-32 Anion Gap 7 mmol/L Normal 2-11 Glucose 84 mg/dL Normal 70-100 Blood Urea Nitrogen 30 mg/dL High 6-24 Creatinine 1.17 mg/dL Normal 0.67-1.17 BUN/Creatinine Ratio 25.6 High 8-20 Calcium 9.1 mg/dL Normal 8.6-10.3 Egfr Non- 61.6 >60 Egfr 74.6 >60 6 1 [facility] Severe Sepsis and Septic Shock Management Bundle [...] [address]: Lio Bolivar MD Acct: [id number] Unit: [id number] AGE: 68 Location: ED Re06/01/19 SEX: M Status: DEP ER SPEC: [id number] KRISTAL: 06/01/[address] [facility] [address]: Lio Bolivar MD REQ: [id number] RECD: 06/01/19 STATUS: NAVID SEVERINO DR: Deepthi Molina MD _ SOURCE: URINE SPDESC: ORDERED: Urine Culture Procedure Result Reported Site Urine Culture Final 06/03/19- 928 ML No growth of clinically significant organisms * ML - Main Lab . END OF REPORT DEPARTMENT OF PATHOLOGY, [address] [place] [address] Hoang Gamboa M.D. Director [facility] # [id number] 4 Normal Range 180 to 914 Indeterminate Range 145 to 180 Deficient Range <145 5 Troponin-I testing on Plasma Separator Tubes (PST) has a known false positive rate of 0.20-0.40%. All positive troponins reflex immediately to secondary confirmatory testing. Using the [employer] DxI 800 Access Immunoassay systems, the 99th [...] dialysis) Procedures Date Code Description Status 04/26/2012 [id number] Colonoscopy Completed Medical Devices Description No Information Available Encounters Type Date Location Provider Dx Diagnosis Office Visit 08/01/2019 Main Office Jeremy Sidhu, J44.1 Chronic obstructive 4:30p MD pulmonary disease w (acute) exacerbation Office Visit 06/26/2019 Main Office Deepthi Molina, S06.0x1D Concussion w Loc of 11:15a M.D., R.D. 30 minutes or less, subs S06.0x1A Concussion w Loc of 30 minutes or less, init F32.89 Other specified depressive episodes F43.10 Post-traumatic stress disorder, unspecified R63.4 Abnormal weight loss J06.9 Acute upper respiratory infection, unspecified Office Visit 06/07/2019 3:45p Main Office Deepthi Molina S06.0x1A Concussion w Loc M.D., R.D. of [...] [facility] Deepthi Molina, J44.0 Chr obstructive Ailyn, R.D. pulmon disease with (acute) lower resp [...] for Referral Status Appt Date Zayda Cesar PAEDIATRIC SURGEON @[facility] Created [address] [place] [address] [phone]
--- OUTSIDE RECORDS SUMMARY | 2019-08-08 10:31 | XMS REPORT | Continuity of Care Document ---
:1950 External Reference #:[id number] Author Name Deepthi Molina M.D., R.D. (transmitted by agent of provider Dayanna Fuentes) Address [address] [place] [address] Care Team Providers Name Role Phone Delon Mix MD - Orthopaedic Care Team Information Horse Farm Manager [phone] Surgery Carlito Tinoco MD - Orthopaedic Care Team Information Horse Farm Manager [phone] Surgery Problems Active Problems Provider Date Depressive [...] Malcolm 17 Dispers hours no more than RADIO ENGINEER-C 3 times /day for nausea Prazosin HCL [...] 03/13/20 11mm Gwen Molina M.D., R.D. Ipratropium [place] one vial via 75ml J44.1 Lacie RRobbin 08/31/19 0.02% nebulized treatment Russ RADIO ENGINEER-C 15 Solution four times daily for breathing Morphine Sulfate 1 or 2 po q4qhr prn 20Twenty Liambrettjenn R. 06/30/19 15mg Tablets severe pain Storm, RADIO ENGINEER-C 15 Aspirin Ec 1 po qd 30tabs [...] Code Status Date Vaccine Reaction Lot # [id number] Given 02/02/2019 Influenza Virus Vaccine, Quadrivalent, 3 Yr > Quad, Preserv Free 70603 Given 02/02/2019 Influenza Virus Vaccine, Quadrivalent, 3 Yr > Quad, Preserv Free 85090 Given 05/31/2018 [place] [address] Given 01/08/2017 Zoster Vaccine 66283 Given 01/06/2017 Influenza Virus Vaccine, Quadrivalent, 3 Yr > Quad, Preserv Free 09831 Given 02/17/2016 Influenza Virus Vaccine, Quadrivalent, 3 Yr > Quad, Preserv Free 93228 Given 01/24/2015 Influenza Virus Vaccine, Quadrivalent, 3 Yr > Quad, Preserv Free 18368 Given 01/01/2014 Tdap (Adacel) [id number] 93331 Given 01/01/2014 Influenza Vaccine High Dose PF [id number] 71310 Given 02/27/2013 Pneumovax 23 (PPSV23) 65+ years or high risk 2 to 64 year old 37906 Given 12/26/2012 Influenza Vaccine-Preservative Free 3 Yrs And Above 78780 Ordered 02/07/2015 Prevnar-13 Pneumococcal Conjugate At [facility] [...] House Lab Stool-Occult Blood neg-no date Neg (207)- - #1 Stool-Occult Blood #2 neg-05/18/19 Neg Stool-Occult Blood #3 neg-05/20/19 Neg CBC Auto 06/01/2019 [facility] White Blood 5.8 10^3/ uL Normal 3.5-10.8 Diff [phone] Count Red Blood Count 4.62 10^6/uL Normal [...] Blood Cells % 0.1 Laboratory test 06/01/2019 [facility] Lactic Acid 1.0 mmol/L Normal 0.5-2.0 1 finding [phone] Ammonia 38 mcmol/L Normal 16-53 Comp Metabolic 06/01/2019 [facility] Sodium 134 mmol/ L Low 135-145 Panel [phone] Potassium 4.5 mmol/L Normal 3.5-5.0 Chloride 99 [...] Egfr 90.4 >60 2 Laboratory test 06/01/2019 [facility] Lipase 19 U/L Normal 11.0-82.0 finding [phone] C Reactive Protein 1.11 mg/L Normal <8.01 Alcohol < 10 mg/dL Normal <10 Urinalysis Profile 06/01/2019 [facility] Urine Color Yellow [phone] Urine Appearance Clear Urine Specific [place] 1.020 Normal 1.010-1.030 Urine pH 6.0 Normal [...] Present Abnormal Absent Urine Culture And 06/01/2019 [facility] Urine SEE RESULT 3 Sensitivities [phone] Culture BELOW Laboratory test 05/08/2019 [facility] Vitamin B12 674 pg/mL Normal 180-9 4 finding [phone] 14 CBC Auto Diff 05/08/2019 [facility] White Blood 3.9 10^3/uL Normal 3.5-2 [phone] Count 0.8 Red Blood Count 4.09 10^6/uL [...] Blood Cells % 0.1 CBC Auto 04/15/2019 [facility] White Blood 7.1 10^3/ uL Normal 3.5-10.8 Diff [phone] Count Red Blood Count 4.46 10^6/uL Normal [...] Blood Cells % 0.1 Laboratory test 04/15/2019 [facility] Troponin-I 0.01 ng/mL <0.03 5 finding [phone] (TnI) Basic Metabolic 04/15/2019 [facility] Sodium 133 mmol /L Low 135-145 Panel [phone] Potassium 4.1 mmol/L Normal 3.5-5.0 Chloride 98 mmol/L Low 101-111 Co2 Carbon Dioxide 28 mmol/L Normal 22-32 Anion Gap 7 mmol/L Normal 2-11 Glucose 84 mg/dL Normal 70-100 Blood Urea Nitrogen 30 mg/dL High 6-24 Creatinine 1.17 mg/dL Normal 0.67-1.17 BUN/Creatinine Ratio 25.6 High 8-20 Calcium 9.1 mg/dL Normal 8.6-10.3 Egfr Non- 61.6 >60 Egfr 74.6 >60 6 1 [facility] Severe Sepsis and Septic Shock [...] [address]: Lio Bolivar MD Acct: [id number] Unit: [id number] AGE: 68 Location: ED Re06/01/19 SEX: M Status: DEP ER SPEC: [id number] KRISTAL: 06/01/19-[address]: Lio Bolivar MD REQ: [id number] RECD: 06/01/19 STATUS: COMP [facility] DR: Deepthi Molina MD _ [facility]: Urine Culture Procedure Result Reported Site Urine Culture Final 06/03/19- 928 ML No growth of clinically significant organisms * ML - Main Lab . END OF REPORT DEPARTMENT OF PATHOLOGY, [address] [place] [address] Hoang Gamboa M.D. Director [facility] # [id number] 4 Normal Range 180 to 914 Indeterminate Range 145 to 180 Deficient Range <145 5 Troponin-I testing on Plasma Separator Tubes (PST) has a known false positive rate of 0.20-0.40%. All positive troponins reflex immediately to secondary confirmatory testing. Using the [employer] 800 Access Immunoassay systems, the 99th percentile [...] dialysis) Procedures Date Code Description Status 04/26/2012 [id number] Colonoscopy Completed Medical Devices Description No Information Available Encounters Type Date Location Provider Dx Diagnosis Office Visit 06/26/2019 Main Office Deepthi Molina, Christopher6.0x1D Concussion w Loc of 11:15a M.D., R.D. [...] init E86.0 Dehydration Office Visit 04/07/2019 1:15p [facility] Deepthi Molina, J44.0 Chr obstructive M.D., R.D. pulmon disease with (acute) lower resp infct Assessments Date Code Description Provider 06/26/2019 S06.0x1D Concussion with loss of consciousness [...] Referral Status Appt Date Zayda Cesar NP @[facility] Created [address] [place] [address] [phone]
[2019-08-08 10:34] LABS: Activated Partial Thrombo Time 39.8 seconds (26.0-38.0); INR 1.03 (0.82-1.09)
[2019-08-08 10:40] LABS: Albumin/Globulin Ratio 1.7 (1-3); BUN/Creatinine Ratio 24.7 (8-20); Calcium 9.4 mg/dL (8.6-10.3); EGFR African American 102.3 (>60); EGFR Non-African American 84.5 (>60); Globulin 2.3 g/dL (2-4); Potassium 4.1 mmol/L (3.5-5.0); Total Bilirubin 0.5 mg/dL (0.2-1.0); Total Protein 6.3 g/dL (6.4-8.9)
[2019-08-08] MEDS ORDERED: NS 0.9% 1000 ML** 1,000 ML IV ONE (10:52)
[2019-08-08 11:07] LABS: Magnesium 1.4 mg/dL (1.9-2.7)
[2019-08-08] MEDS ORDERED: Magnesium Sulfate 2 GM IV* 2 GM/50 ML BAG IVPB ONE (11:54)
[2019-08-08] MEDS ORDERED: Morphine INJ* 2 MG/ML 1 ML SYRINGE (TWO MG - NEW SYRINGE VERSION) IV PRN (11:56)
[2019-08-08] MEDS ORDERED: Ipratropium 0.5MG/2.5ML NEB* 0.5 MG/2.5 ML NEB.SOLN INH PRN (12:00)
[2019-08-08] MEDS ORDERED: traZODone TAB* 50 MG TAB PO PRN (12:00)
[2019-08-08] MEDS ORDERED: Metoclopramide TAB* 10 MG PO PRN (12:00)
--- NOTE | 2019-08-08 12:00 | ED ---
Syncope/Near Syncope - HPI Summary HPI Summary: Patient is a 68yo M with a history of diabetes and chronic neck and shoulder pain, dehydration, dizziness and syncopal episodes presenting to the ED with concern for a fall this morning. Patient states he fell around 8:30 AM when he stood up and became very dizzy. He states this has happened in the past when he becomes "dehydrated." He has regular NS infusions for his dehydration and had an appointment this morning. When he arrived at the appointment, patient told the RN that he had a fall this morning and they directed him here to the ED for further workup. He does have a history of HTN, and has had a remote cardiac workup, but believes this was several years ago. Denies any other symptoms currently. - History Of Current Complaint Chief Complaint: EDHeadInjury Time Seen by Provider: 08/08/19 10:04 Hx Obtained From: Patient Onset/Duration: Sudden Onset Context: Unwitnessed Associated Head Trauma: Yes Associated Signs And Symptoms: Headache, Lightheadedness - Allergies/Home Medications Allergies/Adverse Reactions: Allergies Allergy/AdvReac Type Severity Reaction Status Date / Time ciprofloxacin [From Cipro] Allergy rash, Verified 08/08/19 10:17 itching cyclobenzaprine Allergy Swelling Verified 08/08/19 10:17 Of Face,Lips,& Throat procaine [From Novocain] Allergy rash, Verified 08/08/19 10:17 itching Home Medications: Home Medications Aspirin TAB* [Aspirin 325 MG TAB*] 325 mg PO DAILY 10/20/17 [History Confirmed 08/08/19] Docusate CAP* [Colace Cap*] 100 mg PO DAILY 10/20/17 [History Confirmed 08/08/19 ] Insulin GLARGINE(*) [Lantus 100 units/ml 10 ml VIAL (*)] 36 units SUBCUT QPM [History Confirmed 08/08/19] Montelukast Sodium TAB* [Singulair 10 MG TAB*] 10 mg PO BEDTIME 10/20/17 [ History Confirmed 08/08/19] Omeprazole CAP (NF) [Prilosec CAP* 20 MG] 20 mg PO DAILY 10/20/17 [History Confirmed 08/08/19] Tamsulosin CAP* [Flomax CAP*] 0.4 mg PO DAILY 06/27/18 [History Confirmed ] fentaNYL PATCH 12 MCG/HR * [Duragesic Patch 12 Mcg/Hr *] 12 mcg TRANSDERM Q72H 01/11/19 [History Confirmed 08/08/19] fentaNYL PATCH 25 MCG/HR* [Duragesic PATCH 25 Mcg/Hr*] 25 mcg TRANSDERM Q72H [History Confirmed 08/08/19] metFORMIN* [Glucophage 500 MG TAB *] 500 mg PO BID 01/11/19 [History Confirmed 08/08/19] Sertraline* [Zoloft*] 100 mg PO DAILY 03/13/19 [History Confirmed 08/08/19] Temazepam 7.5 mg Cap (Nf) [Temazepam] 2 mg PO BEDTIME 03/13/19 [History Confirmed 08/08/19] Magnesium Oxide [Magnesium] 200 mg PO BID 04/15/19 [History Confirmed 08/08/19] Albuterol 2.5MG/3ML (0.083%)* [Ventolin 2.5 MG/3 ML NEB.EVER*] 2.5 mg INH Q4HR PRN 06/01/19 [History Confirmed 08/08/19] Insulin ASPART (NF) [Novolog 100 units/ml 10 ml VIAL (NF)] 0 units SUBCUT .PER SLIDING SCALE 06/01/19 [History Confirmed 08/08/19] Ipratropium 0.5MG/2.5ML NEB* [Atrovent 0.5 MG NEB.EVER*] 0.5 mg INH QID PRN 06/01 [History Confirmed 08/08/19] Metoclopramide TAB* [Reglan TAB*] 10 mg PO Q8H PRN #20 tab 06/01/19 [Rx Confirmed 08/08/19] Ns 0.9% 1000 ml [Ns 0.9% Iv.fluid 1000 ml Bag*] 1,000 ml IV .FOR OVER 2 HOURS PRN 06/01/19 [History Confirmed 08/08/19] Harrah-3 Fatty Acids (Nf) [Fish Oil (NF)] 1,200 mg PO DAILY 06/01/19 [History Confirmed 08/08/19] Ondansetron TAB* [Zofran 4 MG Tab*] 4 mg PO .Q6-8H PRN 06/01/19 [History Confirmed 08/08/19] Potassium Chloride [Klor-Con M10] 10 meq PO BID 06/01/19 [History Confirmed ] Prazosin 1 mg CAP [Minipress 1 mg CAP] 4 mg PO BEDTIME 06/01/19 [History Confirmed 08/08/19] Senna TAB 8.6 mg* [Senokot 8.6 mg TAB*] 8.6 mg PO BID PRN 06/01/19 [History Confirmed 08/08/19] Simvastatin (NF) [Zocor (NF)] 40 mg PO BEDTIME 06/01/19 [History Confirmed 08/07] Theophylline CAP ER* [Dheeraj Dur*] 400 mg PO DAILY 06/01/19 [History Confirmed ] buPROPion SR TAB* [Wellbutrin SR TAB*] 150 mg PO DAILY 06/01/19 [History Confirmed 08/08/19] hydroCHLOROthiazide [Hydrochlorothiazide] 25 mg PO DAILY 06/01/19 [History Confirmed 08/08/19] Acetaminophen TAB* [Tylenol TAB*] 325 mg PO Q4H PRN 08/08/19 [History Confirmed 08/08/19] Cholecalciferol CAP/TAB(NF) [Vitamin D3 CAP/TAB (NF)] 5,000 unit PO DAILY [History Confirmed 08/08/19] Cyanocobalamin TAB* [Vitamin B12 TAB*] 100 mcg PO DAILY 08/08/19 [History Confirmed 08/08/19] DOXYcycline CAP(*) [DOXYcycline 100MG CAP(*)] 100 mg PO BID 08/08/19 [History Confirmed 08/08/19] Diclofenac 1.3% PATCH (NF) [Flector 1.3% PATCH (NF)] 1 patch TRANSDERM DAILY [History Confirmed 08/08/19] Lactobacillus Acidophilus [Freeze Dried Acidophilus] 1 cap PO DAILY 08/08/19 [ History Confirmed 08/08/19] Lisinopril TAB* [Prinivil TAB*] 5 mg PO DAILY 08/08/19 [History Confirmed ] Morphine TAB (NF) 15 mg PO BID PRN MDD 3 08/08/19 [History Confirmed 08/08/19] traZODone TAB* [Desyrel TAB*] 150 mg PO BEDTIME PRN 08/08/19 [History Confirmed 08/08/19] PMH/Surg Hx/FS Hx/Imm Hx Previously Healthy: Yes Endocrine/Hematology History: Reports: Hx Anticoagulant Therapy, Hx Diabetes Denies: Hx Systemic Lupus Erythematosus Cardiovascular History: Reports: Hx Angina, Hx Deep Vein Thrombosis, Hx Hypercholesterolemia, Hx Hypotension, Hx Hypertension, Other Cardiovascular Problems/Disorders - Stress test performed Denies: Hx Congestive Heart Failure, Hx Pacemaker/ICD Respiratory History: Reports: Hx Asthma, Hx Chronic Obstructive Pulmonary Disease (COPD), Hx Pneumonia, Hx Sleep Apnea - CPAP, Other Respiratory Problems/ Disorders - COPD, SOB GI History: Reports: Hx Gastroesophageal Reflux Disease, Other GI Disorders - 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 History: Reports: Hx Benign Prostatic Hyperplasia - TURP, Other Problems/ Disorders - Straight cathing at home Denies: Hx Dialysis, Hx Renal Disease Musculoskeletal History: Reports: Hx Arthritis, Hx Back Problems, Hx Orthopedic Injury - Torn Right Rotator Cuff June 2014 Denies: Hx Rheumatoid Arthritis Sensory History: Reports: Hx Cataracts - ASHLY, Hx Contacts or Glasses, Hx Hearing Aid, Hx Hearing Problem Denies: Hx Legally Blind, Hx Deafness Opthamlomology History: Reports: Hx Cataracts - ASHLY, Hx Contacts or Glasses Denies: Hx Legally Blind Neurological History: Denies: Hx Dementia, Hx Seizures, Other Neuro Impairments/Disorders Psychiatric History: Reports: Hx Anxiety, Hx Depression, Hx Post Traumatic Stress Disorder - recently completed 4 month PTSD program., Hx Suicide Attempt Denies: Hx Panic Disorder - Cancer History Cancer Type, Location and Year: bladder Hx Chemotherapy: No - Surgical History Surgery Procedure, Year, and Place: Cataract Surgery 04/08 at [facility] [place] CHOLECYSTECTOMY 12/17/15. EARLY CSP FUSION. CSP LAMINECTOMYS. THORACIC OUTLET SURGERY [employer]. TENS UNIT X2. MORPHINE PUMPS IMPLANTED AND REMOVED. Left Knee replacement 01/2016. Shoulder surgery 06/2015. Total tooth extraction 2014 and dentures Hx Anesthesia Reactions: No - Immunization History Date of Tetanus Vaccine: 2018 Date of Influenza Vaccine: 01/2019 Hx Pertussis Vaccination: No Immunizations Up to Date: Yes Infectious Disease History: No Infectious Disease History: Denies: Traveled Outside the [place] in Last 30 Days - Family History Known Family History: Positive: Diabetes - Social History Occupation: Unemployed Lives: With Family Alcohol Use: None Hx Substance Use: No Substance Use Type: Reports: None Substance Use Comment - Amount & Last Used: Previous hx. Went to rehab [facility], [place], [place] Hx Tobacco Use: Yes Smoking Status (MU): Former Smoker Type: Cigarettes Amount Used/How Often: Pt has not used any tobacco products in last 30 days. Have You Smoked in the Last Year: No Review of Systems Negative: Fever, Chills, Fatigue, Skin Diaphoresis Negative: Palpitations, Chest Pain Negative: Shortness Of Breath, Cough Genitourinary: Negative Positive: no symptoms reported, see HPI Negative: Arthralgia, Myalgia Positive: Headache All Other Systems Reviewed And Are Negative: Yes Physical Exam Triage Information Reviewed: Yes Vital Signs On Initial Exam: Initial Vitals Temp Pulse Resp BP Pulse Ox 95.8 F 63 18 110/63 100 08/08/19 10:02 08/08/19 10:02 08/08/19 10:02 08/08/19 10:02 08/08/19 10:02 Vital Signs Reviewed: Yes Appearance: Positive: Well-Appearing, Well-Nourished Skin: Positive: Warm, Skin Color Reflects Adequate Perfusion Head/Face: Positive: Normal Head/Face Inspection. Negative: Cephalohematoma Eyes: Positive: EOMI, LAURA, Conjunctiva Clear Neck: Positive: Supple, Nontender, No Lymphadenopathy Respiratory/Lung Sounds: Positive: Clear to Auscultation, Breath Sounds Present Cardiovascular: Positive: IRR Musculoskeletal: Positive: Normal, Strength/ROM Intact Neurological: Positive: Speech Normal Psychiatric: Positive: Normal, Affect/Mood Appropriate Procedures - Sedation Patient Received Moderate/Deep Sedation with Procedure: No Diagnostics - Vital Signs Vital Signs Temp Pulse Resp BP Pulse Ox 08/08/19 11:11 57 14 128/67 95 08/08/19 11:00 55 9 96 08/08/19 10:42 57 10 136/64 96 08/08/19 10:13 59 13 98 08/08/19 10:12 17 158/71 08/08/19 10:02 95.8 F 63 18 110/63 100 - Laboratory Lab Results: Lab Results 08/08/19 08/08/19 08/08/19 Range/Units 10:17 10:17 10:17 WBC 8.0 (3.5-10.8) 10^3/uL RBC 4.58 (4.18-5.48) 10^6 /uL Hgb 14.3 (14.0-18.0) g/dL Hct 41 L (42-52) % MCV 90 (80-94) fL MCH 31 (27-31) pg MCHC 35 (31-36) g/dL RDW 14 (10-15) % Plt Count 205 (150-450) 10^3/uL MPV 7.4 (7.4-10.4) fL Neut % (Auto) 67.4 % Lymph % (Auto) 21.7 % [place] % (Auto) 7.5 % Eos % (Auto) 2.5 % Baso % (Auto) 0.9 % Absolute Neuts (auto) 5.4 (1.5-7.7) 10^3/ul Absolute Lymphs (auto) 1.7 (1.0-4.8) 10^3/ul Absolute Monos (auto) 0.6 (0-0.8) 10^3/ul Absolute Eos (auto) 0.2 (0-0.6) 10^3/ul Absolute Basos (auto) 0.1 (0-0.2) 10^3/ul Absolute Nucleated RBC 0.0 10^3/ul Nucleated RBC % 0.0 INR (Anticoag Therapy) 1.03 (0.82-1.09) APTT 39.8 H (26.0-38.0) seconds Sodium 136 (135-145) mmol/L Potassium 4.1 (3.5-5.0) mmol/L Chloride 100 L (101-111) mmol/L Carbon Dioxide 29 (22-32) mmol/L Anion Gap 7 (2-11) mmol/L BUN 22 (6-24) mg/dL Creatinine 0.89 (0.67-1.17) mg/dL Est GFR ( Amer) 102.3 (>60) Est GFR (Non-Af Amer) 84.5 (>60) BUN/Creatinine Ratio 24.7 H (8-20) Glucose 123 H (70-100) mg/dL Lactic Acid (0.5-2.0) mmol/L Calcium 9.4 (8.6-10.3) mg/dL Magnesium 1.4 L (1.9-2.7) mg/dL Total Bilirubin 0.50 (0.2-1.0) mg/dL AST 17 (13-39) U/L ALT 21 (7-52) U/L Alkaline Phosphatase 55 (34-104) U/L Troponin I 0.00 (<0.03) ng/mL Total Protein 6.3 L (6.4-8.9) g/dL Albumin 4.0 (3.2-5.2) g/dL Globulin 2.3 (2-4) g/dL Albumin/Globulin Ratio 1.7 (1-3) 08/08/19 Range/Units 10:17 WBC (3.5-10.8) 10^3/uL RBC (4.18-5.48) 10^6 /uL Hgb (14.0-18.0) g/dL Hct (42-52) % MCV (80-94) fL MCH (27-31) pg MCHC (31-36) g/dL RDW (10-15) % Plt Count (150-450) 10^3/uL MPV (7.4-10.4) fL Neut % (Auto) % Lymph % (Auto) % [place] % (Auto) % Eos % (Auto) % Baso % (Auto) % Absolute Neuts (auto) (1.5-7.7) 10^3/ul Absolute Lymphs (auto) (1.0-4.8) 10^3/ul Absolute Monos (auto) (0-0.8) 10^3/ul Absolute Eos (auto) (0-0.6) 10^3/ul Absolute Basos (auto) (0-0.2) 10^3/ul Absolute Nucleated RBC 10^3/ul Nucleated RBC % INR (Anticoag Therapy) (0.82-1.09) APTT (26.0-38.0) seconds Sodium (135-145) mmol/L Potassium (3.5-5.0) mmol/L Chloride (101-111) mmol/L Carbon Dioxide (22-32) mmol/L Anion Gap (2-11) mmol/L BUN (6-24) mg/dL Creatinine (0.67-1.17) mg/dL Est GFR ( Amer) (>60) Est GFR (Non-Af Amer) (>60) BUN/Creatinine Ratio (8-20) Glucose (70-100) mg/dL Lactic Acid 1.4 (0.5-2.0) mmol/L Calcium (8.6-10.3) mg/dL Magnesium (1.9-2.7) mg/dL Total Bilirubin (0.2-1.0) mg/dL AST (13-39) U/L ALT (7-52) U/L Alkaline Phosphatase (34-104) U/L Troponin I (<0.03) ng/mL Total Protein (6.4-8.9) g/dL Albumin (3.2-5.2) g/dL Globulin (2-4) g/dL Albumin/Globulin Ratio (1-3) Result Diagrams: 08/08/19 10:17 08/08/19 10:17 Lab Statement: Any lab studies that have been ordered have been reviewed, and results considered in the medical decision making process. Course/Dx Course Of Treatment: This patient is evaluated for recent fall approximately 3.5 hours prior to arrival. Patient states he was seen in the infusion clinic for his normal saline repletion due to chronic dehydration when he was sent here for further evaluation. He endorses a mild 2/[address] negative. Lungs CTA. IRR. Pt stable and non-toxic appearing. He states he has had left-sided chest pressure for the past several months. He has not had an EKG recently. He states last EKG was approximately 6 months ago. Unknown last echo or stress test. [facility] EKG shows bigeminy couplets, new from previous EKG. For this reason, I had asked hospitalist service to consult. Labs obtained which shows a magnesium of 1.4, BUN/cr 24.7 and no evidence of acute dehydration. He will be admitted. - Diagnoses Provider Diagnoses: Head injury, Syncope, Bigeminy - Physician Notifications Discussed Care of Patient With: Tracy Driver Instructed by Provider To: MD Will See In ED Discharge ED - Sign-Out/Discharge Documenting (check all that apply): Patient Departure - Discharge Plan Condition: Good Disposition: ADMITTED TO [facility] - Billing Disposition and Condition Condition: GOOD Disposition: Admitted to [facility] - Attestation Statements Provider Attestation: I was available for consult. This patient was seen by the ANDREY. The patient was not presented to, seen by, or examined by me. -Pierce
[2019-08-08] MEDS ORDERED: Dextrose 50% Syringe 50 ML* 25 GM/50 ML SYRINGE IV PUSH PRN (12:04)
[2019-08-08] MEDS ORDERED: fentaNYL PATCH 25 MCG/HR TRANSDERM SCH (14:00)
[2019-08-08] MEDS ORDERED: fentaNYL PATCH 12 MCG/HR TRANSDERM SCH (14:00)
--- NOTE | 2019-08-08 15:23 | HP ---
CC: Dr. Deepthi Molina; Zayda Cesar NP* HISTORY AND PHYSICAL: DATE OF ADMISSION: 08/08/19 PRIMARY CARE PROVIDERS: Dr. Deepthi Molina and Zayda Cesar NP. ATTENDING PHYSICIAN: Dr. Tracy Driver* (dictated by Celina Cano NP). CHIEF COMPLAINT: Fall and chest pain. HISTORY OF PRESENT ILLNESS: Mr. Mcallister is a 68-year-old male with a past medical history of diabetes, hypertension, chronic pain, COPD, GERD, anxiety, and depression who presents to the emergency room today initially with complaints of a fall and subsequent complaints of chest pain. I will note that the patient is a poor historian and is not able to provide a reliable story. The patient reports that he had a concussion in April of this year. Since that time, he has had some intermittent dizziness and headaches and has been previously worked up further. These symptoms have been improving. He reports feeling dizzy upon waking this morning and fell right after he got out of his bed. He did hit his head, but denies any injury. He was scheduled to come into the Infusion Center today for IV fluids. He states that he receives IV fluids approximately one time per month for dehydration, though he is not able to further elaborate why. His son-in-law drove him to the hospital today for his IV fluids and he began to have some chest pain on the way to the hospital. He does report that he has been having some left chest pain for approximately 1 month, which is worse with exertion and improved with rest. He reports that the pain is typically tight, sharp, and throbbing. He has not told anyone about the pain because he did not want his daughter to worry about him. He reports that he was diagnosed with pneumonia last week by his PCP and he was prescribed 10 days of doxycycline, which he has completed 5 days at this point. In the emergency room, the patient was noted to have stable vitals and lab work which was unremarkable except for magnesium of 1.4. He had a troponin of 0.0. He did have an EKG, which showed sinus rhythm with frequent PACs and a rate of 68. There are no ST changes, but there is noted to be a new left anterior fascicular block. Currently in the emergency room, he reports his chest pain has resolved, though his left chest still feels tight. He offers no other complaints. Because of these findings, the Hospitalist Service was asked to evaluate for admission. PAST MEDICAL HISTORY: 1. Diabetes mellitus, type 2. 2. Hypertension. 3. Chronic pain. 4. COPD. 5. GERD. 6. BPH. 7. Hyperlipidemia. 8. Anxiety. 9. Depression. PAST SURGICAL HISTORY: 1. Multiple cervical spine surgeries with residual decrease in sensation in the left upper and lower extremities. 2. Bilateral cataract removal. HOME MEDICATIONS: 1. Acetaminophen 325 mg p.o. q.4 hours p.r.n. pain. 2. Albuterol 1 neb q.4 hours p.r.n. shortness of breath, wheezing. 3. Aspirin 325 mg p.o. daily. 4. Bupropion SR 150 mg p.o. daily. 5. Cholecalciferol 5000 units p.o. daily. 6. Vitamin B12 100 mcg p.o. daily. 7. Diclofenac 1.3% patch 1 transdermal daily. 8. Docusate 100 mg p.o. daily. 9. Doxycycline 100 mg p.o. b.i.d. x10 days. 10. Fentanyl 35 mcg transdermal q.72 hours (25 mcg and 12 mcg patches). 11. Hydrochlorothiazide 25 mg p.o. daily. 12. NovoLog sliding scale. 13. Glargine 35 units subcu at bedtime. 14. Ipratropium 1 neb 4 times a day p.r.n. shortness of breath and wheezing. 15. Lactobacillus 1 cap p.o. daily. 16. Lisinopril 5 mg p.o. daily. 17. Magnesium oxide 200 mg p.o. b.i.d. 18. Metformin 500 mg p.o. b.i.d. 19. Reglan 10 mg p.o. q.8 hours p.r.n. headache. 20. Montelukast 10 mg p.o. bedtime. 21. Morphine extended release 15 to 30 mg p.o. q.4 hours p.r.n. pain. 22. Fish oil 1200 mcg p.o. daily. 23. Omeprazole 20 mg p.o. daily. 24. Ondansetron 4 mg p.o. q.6 hours p.r.n. nausea and vomiting. 25. Potassium chloride 10 mEq p.o. b.i.d. 26. Prazosin 4 mg p.o. bedtime. 27. Senna 1 tab p.o. b.i.d. p.r.n. constipation. 28. Sertraline 100 mg p.o. daily. 29. Losartan 40 mg p.o. bedtime. 30. Tamsulosin 0.4 mg p.o. daily. 31. Temazepam 15 mg p.o. bedtime. 32. Theophylline 400 mg p.o. daily. 33. Trazodone 150 mg p.o. bedtime p.r.n. sleep. ALLERGIES: CIPROFLOXACIN, CYCLOBENZAPRINE, and PROCAINE. FAMILY HISTORY: The patient's family history is unknown as he is adopted. SOCIAL HISTORY: The patient denies any tobacco, alcohol, or recreational drug use. He lives alone with his dog, although with his next door to his daughter. His daughter, Kanwal, will be his surrogate decision maker in the event he is unable to make his own decisions. REVIEW OF SYSTEMS: An 11-point review of systems was performed and all the pertinent positive and negative findings are in the HPI. All other systems are negative. PHYSICAL EXAMINATION GENERAL: Mr. Mcallister is a well-developed, well-nourished, middle-aged white male, lying in bed, in no acute distress. He appears his stated age. VITAL SIGNS: Temp 95.8, heart rate 57, respiratory rate 14, oxygen saturation 95% on room air, blood pressure 128/67. HEENT: Head is atraumatic, normocephalic. Visual mc are grossly intact. Pupils are equal, round, and reactive to light and accommodation. Extraocular movements intact. Oral mucous membranes moist. NECK: Thyroid not palpable. Trachea midline. No lymphadenopathy. RESPIRATORY: Symmetrical chest expansion. No chest wall deformities. Lungs are clear to auscultation throughout. No rhonchi, wheezes, or rales. CARDIOVASCULAR: Regular rate and rhythm. S1, S2 present. No murmurs, rubs, or gallops. No JVD. ABDOMEN: Soft, nontender to palpation, though there is a firm mass to the right upper quadrant. EXTREMITIES: Skin warm and smooth bilaterally. No edema. No clubbing or cyanosis. Pedal pulses 2+ bilaterally. NEUROLOGIC: Awake, alert, and oriented x4. Cranial nerves II through XII are grossly intact. Moves all extremities. SKIN: Grossly intact to my view. DIAGNOSTIC STUDIES/LAB DATA: WBC 8.0, RBC 4.58, hemoglobin 14.3, hematocrit 41 , platelets 205. INR 1.03. Sodium 136, potassium 4.1, chloride 100, carbon dioxide 29, BUN 22, creatinine 0.89, glucose 123, lactic acid 1.4, magnesium 1.4. Troponin 0.00. Brain CT reads as no acute intracranial pathology. EKG shows normal sinus rhythm with frequent PACs versus sinus arrhythmia, rate of 68. QTc 478. No ST elevation or depression. Left anterior fascicular block. ASSESSMENT AND PLAN: Mr. Mcallister is a 68-year-old male with past medical history of diabetes, hypertension, chronic pain, chronic obstructive pulmonary disease, hyperlipidemia, gastroesophageal reflux disease, anxiety, and depression, who presents to the emergency room today after a fall and with complaints of chest pain. The patient will be admitted observation for: 1. Chest pain. The patient reports that this pain has been recurring for approximately 1 month and is worse with exertion and better with rest, though it did occur spontaneously today, so his story is slightly suspicious. His EKG does show a new fascicular block. First troponin was 0.00. He reports last stress test was at least 2 years ago. He does have a HEART score of 6, so at this point does warrant observation for an inpatient stress test. He has had exercise stress test in the past and he does think he can walk on a treadmill so I have ordered an exercise nuclear stress test. We will check 2 additional troponins and repeat an EKG in the morning. 2. Fall. This was not a syncopal episode and there was no loss of consciousness, though the patient did hit his head. The fall was secondary to dizziness, which has been occurring intermittently since a concussion approximately 3 months ago. So at this point, I will hold off on any further workup for the dizziness and he does not warrant a syncopal workup at this point. 3. Abdominal mass. The patient does have an approximately golf ball sized abdominal mass noted on physical exam, which is in the right upper quadrant versus right lower quadrant. The patient reports that this has been present for some time and he believes it was due to administering insulin in the same spot repeatedly. It does not look like he has had any imaging of this that I can see, so I will check an ultrasound to ensure that this is not something that warrants further investigation. 4. Diabetes. We will check fingersticks a.c. I have ordered the patient's home glargine. Otherwise, we will decrease the dose as he will be n.p.o. after midnight. He has been placed on sliding scale insulin. I will hold the metformin at this time. 5. Chronic obstructive pulmonary disease. There is no evidence of exacerbation. Continue theophylline and p.r.n. nebs. 6. Hypertension. The patient is normotensive in the emergency room. Continue lisinopril and hydrochlorothiazide. 7. Chronic pain. The patient does have [address] We will keep him on his fentanyl and p.r.n. morphine. 8. Gastroesophageal reflux disease. Continue PPI. 9. Benign prostatic hypertrophy. Continue tamsulosin and prazosin. 10. Hyperlipidemia. Continue statin. 11. Anxiety and depression. Continue bupropion and sertraline. 12. FEN. The patient does not appear dehydrated and does not require any fluid resuscitation at this time. Magnesium was low and he has already been ordered 2 g of magnesium sulfate. He can have a heart-healthy diet at this time and will be n.p.o. after midnight for stress test in the morning. 13. DVT prophylaxis. According to the DVT Risk Assessment, the patient scores a 4 putting him at high risk. I have ordered Lovenox. 14. Code status. Full code. TIME SPENT: Approximately 70 minutes was spent on this admission, greater than half of that time was spent with the patient, obtaining my history, performing my physical examination, and reviewing the plan of care. The case has been reviewed with my attending, Dr. Driver, who is in agreement with the plan of care. CELINA CANO, MATERIAL DISPATCHER [id number]/[facility] #: [id number] TRE
--- NOTE | 2019-08-08 15:49 | PN ---
Hospitalist Progress Note Date of Service: 08/08/19 Patient recently diagnosed with pneumonia outpatient and placed on 10 days of doxy. CXR is unremarkable and there are no respiratory symptoms or signs of infection, so will not continue doxy. Abdominal US showing a region of soft tissue edema in the RUQ. Based on patient' s history if repeatedly injecting insulin in this region, this seems technical service representative of lipohypertrophy and not of clinical concern.
[2019-08-08] MEDS: Acetaminophen TAB* 325 MG PO PRN (16:32)
[2019-08-08] MEDS: Enoxaparin(*) 40 MG/0.4 ML SYR SUBCUT SCH (16:33)
[2019-08-08] MEDS: Insulin LISPRO* 1 UNITS UNIT SUBCUT SCH (16:40)
[2019-08-08] MEDS ORDERED: Insulin GLARGINE(*) 1 UNITS UNIT SUBCUT SCH ×2 (18:00)
[2019-08-08 18:48] LABS: Urine Appearance Clear; Urine Bilirubin Negative (Negative); Urine Blood Negative (Negative); Urine Color Yellow; Urine Glucose 1+(50 mg/dL) (Negative); Urine Ketones Negative (Negative); Urine Nitrite Negative (Negative); Urine Protein Negative (Negative); Urine Specific Gravity 1.016 (1.010-1.030); Urine Urobilinogen Negative (Negative)
[2019-08-08] MEDS: Potassium Chlor TAB* 10 MEQ TAB.ER PO SCH (20:29)
[2019-08-08] MEDS: Morphine ORAL.SOLN 10 mg* 2 MG/ML UDC 5 ml PO PRN (20:30)
[2019-08-08] MEDS ORDERED: Atorvastatin* 20 MG TAB PO SCH (21:00)
[2019-08-08] MEDS ORDERED: Montelukast Sodium TAB* 10 MG PO SCH (21:00)
[2019-08-09] MEDS: Insulin LISPRO* 1 UNITS UNIT SUBCUT SCH ×2 (07:48→12:23)
[2019-08-09 08:15] LABS: ABS Basophils 0.1 10^3/ul (0-0.2); ABS Eosinophils 0.2 10^3/ul (0-0.6); ABS Lymphocytes 1.9 10^3/ul (1.0-4.8); ABS Monocytes 0.4 10^3/ul (0-0.8); ABS Neutrophils 2.1 10^3/ul (1.5-7.7); Eosinophil % 3.6 %; Hematocrit 40 % (42-52); Hemoglobin 13.8 g/dL (14.0-18.0); Lymphocyte % 41.4 %; Mean Corpuscular HGB Conc 34 g/dL (31-36); Mean Corpuscular Hemoglobin 31 pg (27-31); Mean Corpuscular Volume 91 fL (80-94); Mean Platelet Volume 7.8 fL (7.4-10.4); Nucleated Red Blood Cells % 0.2; Platelet Count 196 10^3/uL (150-450); Red Blood Count 4.46 10^6 /uL (4.18-5.48); Red Cell Distribution Width 14 % (10-15); White Blood Count 4.7 10^3/uL (3.5-10.8)
[2019-08-09 08:25] LABS: BUN/Creatinine Ratio 25.3 (8-20); Calcium 8.9 mg/dL (8.6-10.3); EGFR African American 117.3 (>60); Potassium 4.3 mmol/L (3.5-5.0)
[2019-08-09] MEDS: Potassium Chlor TAB* 10 MEQ TAB.ER PO SCH (08:56)
[2019-08-09] MEDS ORDERED: Aspirin TAB* 325 MG PO SCH (09:00)
[2019-08-09] MEDS ORDERED: Sertraline* 100 MG TAB PO SCH (09:00)
[2019-08-09] MEDS ORDERED: THEOPHYLLINE 200 MG PO SCH (09:00)
[2019-08-09] MEDS ORDERED: Hydrochlorothiazide TAB* 25 MG PO SCH (09:00)
[2019-08-09] MEDS ORDERED: Tamsulosin CAP* 0.4 MG PO SCH (09:00)
[2019-08-09] MEDS ORDERED: buPROPion SR TAB.SR* 150 MG PO SCH (09:00)
[2019-08-09] MEDS ORDERED: Lisinopril TAB* 10 MG PO SCH (09:00)
[2019-08-09] MEDS ORDERED: Pantoprazole TAB * 40 MG TAB PO SCH (09:00)
[2019-08-09 09:59] LABS: Magnesium 1.7 mg/dL (1.9-2.7)
[2019-08-09 10:09] LABS: Theophylline 8.1 mcg/mL (10-20.0)
[2019-08-09] MEDS ORDERED: Aminophylline IV* 25 MG/ML 10 ML VIAL ONE (10:24)
[2019-08-09] MEDS ORDERED: Regadenoson* 0.4 MG/5 ML SYRINGE ONE (10:24)
[2019-08-09] MEDS ORDERED: Magnesium Sulfate 2 GM IV* 2 GM/50 ML BAG IVPB ONE (10:32)
[2019-08-09] MEDS: Morphine ORAL.SOLN 10 mg* 2 MG/ML UDC 5 ml PO PRN (11:47)
[2019-08-09] MEDS: Enoxaparin(*) 40 MG/0.4 ML SYR SUBCUT SCH (11:48)
--- NOTE | 2019-08-09 14:21 | PN ---
Cardiology Progress Note Date of Service: 08/09/19 - CC: fall/LOC See dictated report. Fall and hx prior falls. Sinus bradycardia. BP not low. Recommend event monitor: external and/or implanted EM. Orthostatic component and pt recieves NS infusions. Consider stopping Hydroiuril or minipress, using a different BP lowering agent. Abnormal stress: Hx chest pain in the past, not at the time of fall per pt. CAD risks of DM, HTN, Chol, centrip. obese. Normal troponins No ischemic changes on ECG EF 65% Stress test shows IW ischemia, possible attenuation defect Chemical stress done with theophyline level 8.1 (but theophyline reportedly held >12 hours)-concern that theophyline could impact results No cath planned. Continue with medical management: LDL goal <70, consider GLP1 agonist. BP lowering, possible change Hydrodiuril (or minipress) to other agents. Balance/falls Consider outpatient PT for balance, at risk for DM neuropathy/balance issues. I can follow outpatient [phone]
[2019-08-09] MEDS: Acetaminophen TAB* 325 MG PO PRN (15:18)
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
[2019-08-09 16:08] VITALS: BP 151/71
--- NOTE | 2019-08-09 18:16 | DS ---
CC: Dr. Deepthi Molina; Dr. Tracy Driver; Dr. Shaina Torres* DISCHARGE SUMMARY: DATE OF ADMISSION: 08/08/19 DATE OF DISCHARGE: 08/09/19 PRIMARY CARE PHYSICIAN: Dr. Deepthi Molina. MY ATTENDING WHILE IN THE HOSPITAL: Dr. Tracy Driver* (dictated by SHERIN Garcia). CONSULTING ASSOCIATE ENGINEER: Dr. Shaina Torres. PRIMARY DISCHARGE DIAGNOSES: 1. Chest pain, unclear cause. 2. Dizziness, likely multifactorial. 3. Orthostatic hypotension. SECONDARY DISCHARGE DIAGNOSES: 1. Chronic pain. 2. Diabetes mellitus type 2. 3. Hypertension. 4. Chronic obstructive pulmonary disease. 5. Gastroesophageal reflux disease. 6. Benign prostatic hypertrophy. 7. Hyperlipidemia. 8. Anxiety. 9. Depression. STUDIES DONE WHILE IN THE HOSPITAL: Brain CT from 08/08/19 read as no acute intracranial pathology. EKG x2 shows sinus bradycardia with frequent PACs. No ST-segment elevation or depression. Chest x-ray from 08/08/19 read as no acute cardiopulmonary disease. Nuclear medicine scan from 08/09/19 shows partially reversible photopenia of the inferior wall, may be accentuated by artifact or soft tissue attenuation, though inferior wall ischemia is also in differential, EF of 65%, TID of 1.11, normal wall motion, normal wall thickening. Abdominal ultrasound shows area of localized edema consistent with findings from 2015 CT scan of the abdomen. MEDICATIONS AT DISCHARGE: 1. Aspirin 325 mg p.o. daily. 2. Omeprazole 20 mg p.o. daily. 3. Singulair 10 mg p.o. at bedtime. 4. Docusate 100 mg p.o. daily. 5. Insulin glargine 36 units subcutaneous q.p.m. 6. Metformin 500 mg p.o. b.i.d. 7. Fentanyl 12 mcg transdermal q.72 hours and 25 mcg transdermal q.72 hours. 8. Temazepam 15 mg p.o. at bedtime. 9. Sertraline 100 mg p.o. daily. 10. Magnesium oxide 200 mg p.o. b.i.d. 11. Bupropion 150 mg p.o. daily. 12. Senna 8.6 mg p.o. b.i.d. as needed. 13. Insulin aspart sliding scale. 14. Theophylline 400 mg p.o. daily. 15. Prazosin 4 mg p.o. at bedtime. 16. Potassium chloride 10 mEq p.o. b.i.d. 17. Albuterol 2.5 mg inhalation q.4 hours as needed. 18. Hydrochlorothiazide 25 mg p.o. daily. 19. Ipratropium 0.5 mg inhalation nebulizer 4 times a day as needed. 20. Simvastatin 40 mg p.o. at bedtime. 21. Fish oil 1000 mg p.o. daily. 22. Ondansetron 4 mg p.o. q.6 to 8 hours as needed. 23. Metoclopramide 10 mg p.o. q.8 hours as needed. 26. Lactobacillus acidophilus 1 cap p.o. daily. 27. Vitamin B12 100 mcg p.o. daily. 28. Trazodone 150 mg p.o. at bedtime as needed. 29. Lisinopril 5 mg p.o. daily. 30. Tylenol 325 mg p.o. q.4 hours as needed. 31. Diclofenac 1.3% patch 1 patch transdermal daily. 32. Doxycycline 100 mg p.o. b.i.d. x4 more days. 33. Vitamin D3 5000 units p.o. daily. 34. Morphine 15 mg p.o. b.i.d. as needed. New medications at discharge: None. Medications discontinued at discharge: Flomax 0.4 mg p.o. daily. HOSPITAL COURSE: This is a brief summary of the patient's presentation. For more details, please see the history and physical from Celina Cano NP, on . In brief, the patient is a 68-year-old male with a past medical history significant for the above, who presented to the emergency department after a fall due to dizziness and chest pain x1 month. The patient's chest pain was moderately worrisome for acute coronary syndrome with risk factors. The patient was admitted to the hospital and had a nuclear chemical stress test, which was read as intermediate risk, but deemed likely to be false positive based on bowel attenuation. The patient had no recurrent chest pain while in the hospital. The patient had 3 negative troponins and 2 nonischemic EKGs; however, the patient was noted to have some bradycardia while in the hospital which is a known finding for him. The patient also had some dizziness and was found to be orthostatic while in the hospital. The patient was seen in consultation by Dr. Shaina Torres, who recommended a continued medical management for presumed primary prevention of NM and followup with Cardiology for consideration for event monitor implantation and possible repeat stress testing. The patient felt his baseline on 08/09/19 and was stable and amenable for discharge. PHYSICAL EXAM ON THE DAY OF DISCHARGE: General: The patient is a 68-year-old male, who appears stated age and sitting comfortably in bed, in no acute distress. Vital Signs: Temperature 97.3, pulse rate 58, respiratory rate 16, oxygen saturation 98% on room air, blood pressure 129/69. HEENT: Head: Normocephalic, atraumatic. Sclerae anicteric. No conjunctival injection. Nasal mucosa moist. Oral mucosa dry. No pharyngeal erythema, discharge, or exudate. Neck: Supple, nontender. No lymphadenopathy. No carotid bruits auscultated. No JVD. Cardiac: Regular rate and rhythm. Occasional irregularities in rhythm consistent with PACs. Respiratory: Clear to auscultation bilaterally. No wheezes, rales, or rhonchi. Good air exchange bilaterally. Abdomen: Soft, nontender, nondistended. Bowel sounds present and normoactive in all 4 quadrants. No hepatosplenomegaly. No abdominal bruits auscultated. No hepatojugular reflux. Genitourinary: No suprapubic or CVA tenderness. Skin: Clean, dry, and intact. No rashes. Neuro: Cranial nerves II through XII intact. No focal deficits. Alert and oriented x3. No nystagmus. Psychiatric: Pleasant and cooperative. DISCHARGE PLAN BY PROBLEM: 1. Chest pain, acute NM ruled out. The patient had 3 negative troponins, 2 nonischemic EKGs and a stress test read as intermediate risk, but this was likely related to soft tissue attenuation; however, the patient is on theophylline and his level on the morning of his stress test was only slightly below therapeutic range, this caused the question whether or not the patient's stress test was adequate; however, the test seems to be adequate at this time. Continue primary prevention with aspirin and statin. The patient should continue to have lipid profiles per routine lab protocols as well as hemoglobin A1c. The patient should follow up with Cardiology for consideration for an event monitor implantation as well as possible repeat stress test. 2. Dizziness. The patient's dizziness is a relatively chronic finding; however , the patient was found to be orthostatic while in the hospital. Due to this finding, the patient's tamsulosin was discontinued as the patient is already on Minipress, which should help with urinary retention and the patient should not be on 2 alpha blockers; however, the patient also has other medications that may be contributing to his dizziness including his hydrochlorothiazide, his trazodone and his opiate therapy. It has been discussed with the patient and his family that he should have a delicate visit with his primary care provider, specifically to discuss his numerous medications and their ongoing utility versus their possible drawbacks related to his dizziness and quality of life, particularly hydrochlorothiazide. Given the patient is needing intermittent infusions of normal saline, the patient's blood pressure would likely be better addressed with another medication. The patient also has been losing a significant amount of weight per his daughter and aunt and adjusting the doses of his opiate based on his weight loss should be considered. The patient should also have physical therapy at home or at facility to help with the patient's chronic issues of unbalance, which are likely not all related to his orthostatic hypotension. 3. COPD. Continue the patient's ipratropium, theophylline and montelukast. However, given the patient's BPH, the patient's theophylline dosage should be reconsidered as there may be medications with a better side effect profile for his COPD. 4. Hypertension. Continue lisinopril, prazosin and hydrochlorothiazide at this time. See above discussion related to hydrochlorothiazide. 5. Presumed pneumonia. The patient will be continued on his doxycycline at this time; however, the patient is not having issues with shortness of breath. 6. Chronic pain. Continue the patient's morphine, fentanyl patches. The patient should follow up with pain clinic to discuss on ongoing basis the side effects versus benefits of his pain medication, particularly given his weight loss, dose adjustments may be necessary. 7. Diabetes mellitus type 2. Continue the patient's sliding scale insulin, insulin glargine, metformin. The patient may be a candidate for GLP1 agonist for control of his blood sugars given the concern for his coronary artery disease. DISPOSITION: Home. CONDITION: Stable. TIME SPENT: Approximately 60 minutes was spent on the discharge of this patient , 30 of which was spent [id number] with the patient obtaining history and physical and discussing treatment plan. SHERIN GARCIA [id number]/[facility] #: [id number] TRE
== END 2019-08-09 16:30 | disposition home or self-care (01) ==
LOC: ED 10:01 → MEDTELE 11:56
PROVIDERS: ADMIT Internal Medicine; ATTEND Internal Medicine
DX: R07.89 Other chest pain (principal); R42 Dizziness and giddiness; I95.1 Orthostatic hypotension; G89.29 Other chronic pain; E11.9 Type 2 diabetes mellitus without complications; I10 Essential (primary) hypertension; J44.9 Chronic obstructive pulmonary disease, unspecified; K21.9 Gastro-esophageal reflux disease without esophagitis; N40.0 Benign prostatic hyperplasia without lower urinary tract symptoms; E78.5 Hyperlipidemia, unspecified; F41.9 Anxiety disorder, unspecified; F32.9 Major depressive disorder, single episode, unspecified; Z79.4 Long term (current) use of insulin; Z79.82 Long term (current) use of aspirin; Z79.899 Other long term (current) drug therapy; Z91.81 History of falling; Z88.1 Allergy status to other antibiotic agents; R19.00 Intra-abdominal and pelvic swelling, mass and lump, unspecified site; Z86.718 Personal history of other venous thrombosis and embolism; E66.8 Other obesity; Z88.8 Allergy status to other drugs, medicaments and biological substances; Z79.01 Long term (current) use of anticoagulants; E78.00 Pure hypercholesterolemia, unspecified; Z87.891 Personal history of nicotine dependence; Z85.59 Personal history of malignant neoplasm of other urinary tract organ; R00.8 Other abnormalities of heart beat; Z96.652 Presence of left artificial knee joint
CPT/HCPCS: 36415; 70450; 71045; 76705; 78452; 80048; 80053; 80198; 81003; 83605; 83735; 84484; 85025; 85610; 85730; 93005; 94660; 96365; 96366; 96372; 99283; A9270-GY; A9502; G0378; J0280; J1650; J2785; J3475

== ENCOUNTER 2020-07-19 14:31 | Observation (INO) ==
[2020-07-19] MEDS ORDERED: hydrALAZINE 20 mg/ml 1 ML Vial IV IV SLOW PU ONE ×2 (16:25→17:27)
[2020-07-19 16:49] LABS: ABS Basophils 0.1 10^3/ul (0-0.2); ABS Eosinophils 0.1 10^3/ul (0-0.6); ABS Lymphocytes 1.6 10^3/ul (1.0-4.8); ABS Monocytes 0.7 10^3/ul (0-0.8); ABS Neutrophils 5.4 10^3/ul (1.5-7.7); Eosinophil % 1.1 %; Hematocrit 43 % (42-52); Lymphocyte % 20.6 %; Mean Corpuscular HGB Conc 35 g/dL (31-36); Mean Corpuscular Hemoglobin 31 pg (27-31); Mean Corpuscular Volume 89 fL (80-94); Mean Platelet Volume 7.7 fL (7.4-10.4); Nucleated Red Blood Cells % 0.1; Platelet Count 269 10^3/uL (150-450); Red Blood Count 4.85 10^6 /uL (4.18-5.48); Red Cell Distribution Width 14 % (10-15)
[2020-07-19 17:16] LABS: Albumin 4.4 g/dL (3.2-5.2); Albumin/Globulin Ratio 1.7 (1-3); BUN/Creatinine Ratio 19.1 (8-20); Calcium 9.6 mg/dL (8.6-10.3); EGFR Non-African American 84.3 (>60); Globulin 2.6 g/dL (2-4); Total Bilirubin 0.5 mg/dL (0.2-1.0); Troponin I 0.01 ng/mL (<0.03)
[2020-07-19] MEDS ORDERED: Iodixanol (CONTRAST) 320 MG/ML 100 ML SDV IV ONE (18:23)
[2020-07-19] MEDS ORDERED: Albuterol 2.5mg/3 ml (0.083%) NEB.SOLN INH PRN (18:55)
[2020-07-19] MEDS ORDERED: TEMAZEPAM 7.5 MG PO PRN (18:55)
[2020-07-19] MEDS ORDERED: hydrALAZINE 20 mg/ml 1 ML Vial IV IV SLOW PU PRN (19:05)
[2020-07-19] MEDS ORDERED: fentaNYL PATCH 25 MCG/HR 1 PATCH TRANSDERM SCH (21:00)
[2020-07-19] MEDS ORDERED: fentaNYL PATCH 12 MCG/HR 1 PATCH TRANSDERM SCH (21:00)
[2020-07-19] MEDS ORDERED: Albuterol HFA INHALER 8 gm MDI INH PRN (21:01)
[2020-07-19] MEDS: Potassium Chlor 10 meq TAB PO SCH (21:53)
[2020-07-19] MEDS: fentaNYL Patch Check Q Shift NOTE FOLLOW UP SCH (21:54)
[2020-07-19] MEDS: Enoxaparin 40 MG/0.4 ML SYR SUBCUT SCH (21:54)
[2020-07-19] MEDS: Morphine ORAL.SOLN 10 mg 2 mg/ml UDC 5 ml (10 mg) PO PRN (23:07)
[2020-07-19] MEDS: THEOPHYLLINE 200 MG PO SCH (23:07)
[2020-07-20 05:46] LABS: ABS Basophils 0.1 10^3/ul (0-0.2); ABS Eosinophils 0.1 10^3/ul (0-0.6); ABS Lymphocytes 2.2 10^3/ul (1.0-4.8); ABS Monocytes 0.7 10^3/ul (0-0.8); ABS Neutrophils 3.3 10^3/ul (1.5-7.7); Eosinophil % 1.9 %; Hematocrit 42 % (42-52); Hemoglobin 14.2 g/dL (14.0-18.0); Lymphocyte % 34.4 %; Mean Corpuscular HGB Conc 34 g/dL (31-36); Mean Corpuscular Hemoglobin 30 pg (27-31); Mean Corpuscular Volume 90 fL (80-94); Mean Platelet Volume 7.7 fL (7.4-10.4); Platelet Count 239 10^3/uL (150-450); Red Cell Distribution Width 15 % (10-15); White Blood Count 6.4 10^3/uL (3.5-10.8)
[2020-07-20 06:04] LABS: Albumin 3.9 g/dL (3.2-5.2); Albumin/Globulin Ratio 1.7 (1-3); BUN/Creatinine Ratio 20.5 (8-20); Calcium 9.1 mg/dL (8.6-10.3); EGFR African American 110.5 (>60); EGFR Non-African American 91.3 (>60); Globulin 2.3 g/dL (2-4); Magnesium 1.7 mg/dL (1.9-2.7); Potassium 4.3 mmol/L (3.5-5.0); Total Bilirubin 0.6 mg/dL (0.2-1.0); Total Protein 6.2 g/dL (6.4-8.9)
[2020-07-20 06:18] LABS: TSH Ultra Thyroid Stim Horm 1.71 mcIU/mL (0.34-5.60)
[2020-07-20] MEDS: fentaNYL Patch Check Q Shift NOTE FOLLOW UP SCH ×2 (07:30→18:52)
[2020-07-20] MEDS ORDERED: Magnesium Sulfate 2 gm BAG 2 GM/50 ML BAG IVPB ONE (07:50)
[2020-07-20] MEDS: SPIRIVA Respimat (tiotropium) 2.5 mcg/inh Inhaler INH SCH (08:06)
[2020-07-20] MEDS: Aspirin EC 81 mg TAB.EC (enteric coated) PO SCH (09:03)
[2020-07-20] MEDS: Potassium Chlor 10 meq TAB PO SCH ×2 (09:04→21:41)
[2020-07-20] MEDS: Morphine ORAL.SOLN 10 mg 2 mg/ml UDC 5 ml (10 mg) PO PRN ×2 (09:16→21:41)
[2020-07-20] MEDS: THEOPHYLLINE 200 MG PO SCH ×2 (10:26→21:48)
[2020-07-20 17:23] LABS: Urine Appearance Clear; Urine Bilirubin Negative (Negative); Urine Blood Negative (Negative); Urine Color Yellow; Urine Glucose 2+(150 mg/dL) (Negative); Urine Ketones Negative (Negative); Urine Nitrite Negative (Negative); Urine Protein Negative (Negative); Urine Specific Gravity 1.021 (1.010-1.030); Urine Urobilinogen Negative (Negative)
[2020-07-20] MEDS ORDERED: Insulin GLARGINE 100 un/ml 10 ml VIAL SUBCUT SCH (21:00)
[2020-07-20] MEDS: Enoxaparin 40 MG/0.4 ML SYR SUBCUT SCH (21:45)
[2020-07-21] MEDS: fentaNYL Patch Check Q Shift NOTE FOLLOW UP SCH ×2 (07:07→09:41)
[2020-07-21 07:29] VITALS: BP 109/41
[2020-07-21] MEDS: SPIRIVA Respimat (tiotropium) 2.5 mcg/inh Inhaler INH SCH (07:30)
[2020-07-21] MEDS: THEOPHYLLINE 200 MG PO SCH (08:41)
[2020-07-21] MEDS: Morphine ORAL.SOLN 10 mg 2 mg/ml UDC 5 ml (10 mg) PO PRN (08:42)
[2020-07-21] MEDS: Aspirin EC 81 mg TAB.EC (enteric coated) PO SCH (08:42)
[2020-07-21] MEDS: Potassium Chlor 10 meq TAB PO SCH (08:42)
== END 2020-07-21 10:15 | disposition home or self-care (01) ==
LOC: MEDTELE 14:31 → ED 14:31 → MEDTELE 21:05
PROVIDERS: ADMIT Student in an Organized Health Care Education/Training Program; ATTEND Internal Medicine

== ENCOUNTER 2021-02-26 10:02 | Inpatient (IN) ==
[2021-02-26 13:37] LABS: ABS Basophils 0.1 10^3/ul (0-0.2); ABS Eosinophils 0.2 10^3/ul (0-0.6); ABS Lymphocytes 1.6 10^3/ul (1.0-4.8); ABS Monocytes 0.6 10^3/ul (0-0.8); ABS Neutrophils 3.8 10^3/ul (1.5-7.7); Eosinophil % 2.6 %; Hematocrit 38 % (42-52); Mean Corpuscular HGB Conc 34 g/dL (31-36); Mean Corpuscular Hemoglobin 30 pg (27-31); Mean Corpuscular Volume 89 fL (80-94); Mean Platelet Volume 7.4 fL (7.4-10.4); Platelet Count 215 10^3/uL (150-450); Red Cell Distribution Width 14 % (10-15); White Blood Count 6.3 10^3/uL (3.5-10.8)
[2021-02-26 13:56] LABS: Troponin I 0.01 ng/mL (<0.03)
[2021-02-26 13:57] LABS: ALT 20 U/L (7-52); AST 20 U/L (13-39); Albumin 3.7 g/dL (3.2-5.2); Albumin/Globulin Ratio 1.5 (1-3); Alkaline Phosphatase 60 U/L (35-149); Anion Gap 5 mmol/L (2-11); Blood Urea Nitrogen 20 mg/dL (6-24); CO2 Carbon Dioxide 32 mmol/L (22-32); Calcium 8.9 mg/dL (8.6-10.3); Chloride 98 mmol/L (101-111); Globulin 2.5 g/dL (2-4); Glucose 118 mg/dL (70-100); Magnesium 1.8 mg/dL (1.9-2.7); Potassium 4.5 mmol/L (3.5-5.0); Sodium 135 mmol/L (135-145); Total Protein 6.2 g/dL (6.4-8.9)
[2021-02-26 14:12] LABS: Alcohol, S < 13 mg/dL (<13)
[2021-02-26 14:27] LABS: TSH Ultra Thyroid Stim Horm 0.67 mcIU/mL (0.34-5.60)
[2021-02-26 16:13] LABS: Urine Appearance Clear; Urine Bilirubin Negative (Negative); Urine Blood Negative (Negative); Urine Color Yellow; Urine Glucose 3+(>=500 mg/dL) (Negative); Urine Ketones Negative (Negative); Urine Nitrite Negative (Negative); Urine Protein Negative (Negative); Urine Specific Gravity 1.014 (1.002-1.030); Urine Urobilinogen Negative (Negative)
[2021-02-26] MEDS ORDERED: Albuterol HFA INHALER 8 gm MDI INH PRN (18:14)
[2021-02-26] MEDS ORDERED: TEMAZEPAM 7.5 MG PO SCH (18:30)
[2021-02-26] MEDS ORDERED: Magnesium Sulfate IV 1GM/100ML 1 GM/100 ML BAG IV ONE (18:34)
[2021-02-26 18:52] LABS: Theophylline 8.4 mcg/mL (10-20.0)
[2021-02-26 19:23] LABS: Rapid COVID-19 Molecular Undetected (Undetected)
[2021-02-26] MEDS: fentaNYL Patch Check Q Shift NOTE FOLLOW UP SCH (20:30)
[2021-02-26] MEDS: Insulin GLARGINE 100 un/ml 10 ml VIAL SUBCUT SCH (20:30)
[2021-02-26] MEDS ORDERED: fentaNYL PATCH 25 MCG/HR 1 PATCH TRANSDERM SCH (21:00)
[2021-02-26] MEDS ORDERED: fentaNYL PATCH 12 MCG/HR 1 PATCH TRANSDERM SCH (21:00)
[2021-02-26] MEDS ORDERED: Cyclobenzaprine 5 mg TAB (NF) PO SCH (21:00)
[2021-02-26] MEDS: Heparin 5000 UNITS/ML 1 mL VIAL SUBCUT SCH (22:49)
[2021-02-26] MEDS: Morphine ORAL.SOLN 10 mg 2 mg/ml UDC 5 ml (10 mg) PO SCH (22:50)
[2021-02-26] MEDS ORDERED: hydrALAZINE 20 mg/ml 1 ML Vial IV IV SLOW PU PRN (23:22)
[2021-02-27] MEDS ORDERED: NS 0.9% 500 ml BAG 500 ML IV ONE (04:13)
[2021-02-27 05:02] LABS: ABS Eosinophils 0.1 10^3/ul (0-0.6); ABS Lymphocytes 1.6 10^3/ul (1.0-4.8); ABS Monocytes 0.5 10^3/ul (0-0.8); ABS Neutrophils 3.2 10^3/ul (1.5-7.7); Eosinophil % 2.2 %; Hematocrit 38 % (42-52); Hemoglobin 13.1 g/dL (14.0-18.0); Lymphocyte % 28.9 %; Mean Corpuscular HGB Conc 34 g/dL (31-36); Mean Corpuscular Hemoglobin 30 pg (27-31); Mean Corpuscular Volume 89 fL (80-94); Mean Platelet Volume 7.4 fL (7.4-10.4); Nucleated Red Blood Cells % 0.1; Platelet Count 226 10^3/uL (150-450); Red Blood Count 4.32 10^6 /uL (4.18-5.48); Red Cell Distribution Width 14 % (10-15); White Blood Count 5.4 10^3/uL (3.5-10.8)
[2021-02-27] MEDS: Heparin 5000 UNITS/ML 1 mL VIAL SUBCUT SCH ×3 (05:11→22:19)
[2021-02-27 05:22] LABS: Calcium 8.5 mg/dL (8.6-10.3); HDL Cholesterol 45.1 mg/dL
[2021-02-27 06:44] LABS: Magnesium 2.1 mg/dL (1.9-2.7)
[2021-02-27] MEDS: fentaNYL Patch Check Q Shift NOTE FOLLOW UP SCH ×2 (06:48→18:40)
[2021-02-27] MEDS ORDERED: Regadenoson 0.4 MG/5 ML SYRINGE ONE (08:11)
[2021-02-27] MEDS ORDERED: Aminophylline 25 MG/ML VIAL ONE (08:12)
[2021-02-27] MEDS ORDERED: Perflutren Lipid Microsphere 3 ML VIAL ONE (08:27)
[2021-02-27] MEDS: Morphine ORAL.SOLN 10 mg 2 mg/ml UDC 5 ml (10 mg) PO SCH ×3 (09:00→22:16)
[2021-02-27] MEDS: Insulin GLARGINE 100 un/ml 10 ml VIAL SUBCUT SCH (18:36)
[2021-02-27] MEDS ORDERED: Dextrose 50% Syringe 50 ml 25 GM/50 ML SYRINGE IV PUSH PRN (20:17)
[2021-02-28] MEDS: Heparin 5000 UNITS/ML 1 mL VIAL SUBCUT SCH ×2 (05:08→13:35)
[2021-02-28] MEDS: fentaNYL Patch Check Q Shift NOTE FOLLOW UP SCH (07:17)
[2021-02-28] MEDS: Morphine ORAL.SOLN 10 mg 2 mg/ml UDC 5 ml (10 mg) PO SCH (07:58)
[2021-02-28 11:57] VITALS: BP 134/62
== END 2021-02-28 16:15 | disposition home or self-care (01) | DRG 68 ==
LOC: MEDTELE 10:02 → ED 10:02 → MEDTELE 21:15
PROVIDERS: ADMIT Internal Medicine; ATTEND Internal Medicine